=== PATIENT | female | born 1990 | race Caucasian/White ===

== ENCOUNTER 2020-02-23 08:59 | Outpatient (CLI) | payer OTHER, SELFPAY ==
--- NOTE | ~2020-02-23 | XR_ITS ---
EXAMINATION: XR knee RT 3V DATE: 02/23/2020 09:14 INDICATION: Right knee pain. TECHNIQUE: 3 views of right knee were obtained. COMPARISON: None. FINDINGS: Bone alignment is normal. No fracture. There is mild osteoarthritis of medial and lateral c ompartments characterized by tiny marginal osteophytes. No knee joint effusion. IMPRESSION: 1. Mild right knee osteoarthritis. Reviewed, dictated and finalized at location A.
== END 2020-02-23 09:00 | disposition home or self-care (01) ==
LOC: ANHIMG 09:01
PROVIDERS: PCP Internal Medicine; Visit Provider Clinical Nurse Specialist
DX: M17.11 Unilateral primary osteoarthritis, right knee (principal)
CPT/HCPCS: 73562

== ENCOUNTER 2020-03-07 14:50 | Outpatient (CLI) | payer OTHER, SELFPAY ==
--- NOTE | ~2020-03-07 | MR_ITS ---
EXAMINATION: MR knee RT wo con DATE: 03/07/2020 15:47 INDICATION: Anteromedial right knee pain. TECHNIQUE: Magnetic resonance imaging (MRI) of the right knee was performed without intravenous contr ast. Sequences included coronal PD-weighted FSE, coronal PD-weighted FS FSE, sagittal T2-weighted FS E, sagittal PD-weighted FS FSE and axial PD weighted fat saturated FSE. COMPARISON: None. FINDINGS: Medial compartment: Medial meniscus is normal. Articular cartilage is normal. Lateral compartment: Lateral meniscus is normal. Articular cartilage is normal. Patellofemoral compartment: Articular cartilage is normal. Ligaments and tendons: Anterior and posterior cruciate ligaments are normal. The medial collateral ligament and fibular aleksandr ateral ligament complex are normal. The extensor mechanism is normal. The visualized medial and later al hamstring tendons as well as the iliotibial band are normal. Fluid: Physiologic amount of fluid in the joint space. No loose osteochondral bodies identified. Osseous/other: Normal marrow signal. No fracture or pathologic marrow replacing process. There is mild increased flu id signal in the superficial suprapatellar fat pad which could be seen with either contusion or fat p ad impingement syndrome. IMPRESSION: 1. Mild edema in the superficial suprapatellar fat pad which can be seen with either contusion or fat pad impingement syndrome. 2. No osseous abnormality or internal derangement with normal marrow signal, menisci, cartilage and s tabilizing ligaments of the knee. Reviewed, dictated and finalized at location A. IMPRESSION: 1. Mild edema in the superficial suprapatellar fat pad which can be seen with e ither contusion or fat pad impingement syndrome. 2. No osseous abnormality or internal derangement with normal marrow signal, me nisci, cartilage and stabilizing ligaments of the knee.
== END 2020-03-07 14:51 | disposition home or self-care (01) ==
PROVIDERS: PCP Internal Medicine; Visit Provider Clinical Nurse Specialist
DX: M25.561 Pain in right knee (principal); R60.9 Edema, unspecified
CPT/HCPCS: 73721

== ENCOUNTER → 2021-03-21 06:56 | Outpatient (CLI) | payer OTHER, SELFPAY ==
[2021-03-21 17:38] LABS: SARS-CoV-2 RNA PCR Negative
== END ==
PROVIDERS: PCP Internal Medicine; Visit Provider Clinical Nurse Specialist
DX: R05 Cough (principal); Z20.822 Contact with and (suspected) exposure to COVID-19
CPT/HCPCS: C9803; U0003; U0005

== ENCOUNTER 2021-06-01 15:33 | Outpatient (RCR) | payer OTHER, SELFPAY ==
[2021-06-03] MEDS: RHO(D) IMMUNE GLOBULIN 300 MCG/2 ML SYRINGE IM (08:46)
== END 2021-06-12 07:32 | disposition home or self-care (01) ==
LOC: ANHLAB 15:33
PROVIDERS: PCP Internal Medicine; Visit Provider Obstetrics & Gynecology
DX: Z29.13 Encounter for prophylactic Rho(D) immune globulin (principal); O36.0190 Maternal care for anti-D [Rh] antibodies, unspecified trimester, not applicable or unspecified; Z3A.00 Weeks of gestation of pregnancy not specified
CPT/HCPCS: 36415; 85461; 90384; 96372; J2790

== ENCOUNTER 2021-07-13 17:14 | Outpatient (CLI) | payer OTHER, SELFPAY ==
[2021-07-13 17:32] VITALS: BP 126/71; PULSE 82
[2021-07-13 17:58] VITALS: BP 126/71; PULSE 91
--- NOTE | 2021-07-13 18:00 | PC.NURSE ---
called,informed pt came in stating she was leaking fluid. ROM plus is negative and NST is reactive. orders received to discharge pt home
== END 2021-07-13 18:04 | disposition home or self-care (01) ==
LOC: ANHOBOP 17:21 → ANHOBPP 17:22
PROVIDERS: PCP Internal Medicine; Referring Provider Obstetrics & Gynecology; Visit Provider Obstetrics & Gynecology
DX: O42.90 Premature rupture of membranes, unspecified as to length of time between rupture and onset of labor, unspecified weeks of gestation (principal); Z3A.00 Weeks of gestation of pregnancy not specified
CPT/HCPCS: 59025; 84112; 99199

== ENCOUNTER 2021-08-19 11:27 | Outpatient (CLI) | payer OTHER, SELFPAY ==
[2021-08-19 11:53] LABS: Hematocrit 34.7 % (37.0-47.0); Hemoglobin 11.2 g/dL (12.0-15.0); Mean Corpuscular HGB Conc 32.3 g/dl (32-36); Mean Corpuscular Hemoglobin 26.2 pg (26-34); Mean Corpuscular Volume 81.3 fl (80-100); Mean Platelet Volume 9.2 fl (7.4-10.4); Platelet Count Result 201 k/mm3 (150-375); Red Blood Count 4.27 M/mm3 (4.2-5.4); Red Cell Distribution Width 14.6 % (11.5-14.5); White Blood Count 7.5 K/mm3 (4.5-10.0)
[2021-08-21 10:25] LABS: Rapid Plasma Reagin Non-Reactive (NonReactive)
== END 2021-08-19 11:28 | disposition home or self-care (01) ==
LOC: ANHLAB 11:30
PROVIDERS: PCP Internal Medicine; Visit Provider Obstetrics & Gynecology
DX: Z34.93 Encounter for supervision of normal pregnancy, unspecified, third trimester (principal); Z3A.00 Weeks of gestation of pregnancy not specified
CPT/HCPCS: 36415; 85027; 86592; 86850; 86900; 86901

== ENCOUNTER 2021-08-21 04:53 | Inpatient (IN) | payer OTHER, SELFPAY ==
--- NOTE | 2021-08-16 12:28 | PM.IMHP ---
H&P: HPI History of Present Illness Date/Time: 08/16/21 12:28 22-year-old 3 para 1 the sleep EDC is 08/24/2021 confirmed by 8 week ultrasound presents at 39 weeks gestation for repeat section secondary to previous section and breech presentation has been uncomplicated Chief Complaint: term / previous section/ breech/desires permanent sterilization Review of Systems Review of Systems: All systems reviewed & are unremarkable except as noted in HPI and below PMFSH Past Medical History Medical History ADHD Anemia Anxiety Bipolar disorder Chlamydia Depression Endometriosis determined by laparoscopy Hydronephrosis Panic disorder 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 Surgical History Surgical History H/O dilation and curettage H/O: hysterectomy Family History Family History Father Family history of elevated blood lipids Patient's father is in good health Mother Hypertension Sibling Patient's brother is in good health Social History Social History Smoking status: Never smoker Alcohol intake: current Substance use: never Spiritual care concerns: No Meds Home Medications and Allergies Home Medications Medication Instructions Recorded Confirmed Type sertraline 50 mg tablet 50 mg PO DAILY #90 tablet 05/01/21 08/11/21 Rx PNV cmb#95-ferrous fumarate-FA 1 tablet PO DAILY 08/11/21 08/11/21 History [] Allergies Allergy/AdvReac Type Severity Reaction Status Date / Time azithromycin Allergy Unknown Verified 12/20/10 10:02 erythromycin base Allergy Unknown Verified 11/13/18 14:56 Exam Const: General: no acute distress Eyes: General: appearance normal, both eyes and all related structures Neck: Neck: supple and no JVD Thyroid: thyroid normal Resp: Effort & Inspection: normal respiratory effort Auscultation: clear to auscultation bilaterally Cardio: Rate: regular rate Rhythm: regular rhythm GI: Inspection: non-distended GI Palp: Yes Soft to palpation, No Tenderness to palpation present (GI) and No Guarding due to palpation present (GI) Auscultation: normal bowel sounds : External Female Exam: normal external appearance Speculum Exam - Vagina: normal appearance of the vagina Speculum Exam - Cervix: normal appearance of the cervix and Cervical os closed Bimanual exam- vagina & uterus: non-tender Skin: General skin exam: no rashes or lesions noted Extrem: General: normal to inspection and no edema Psych: Mental Status: mental status grossly normal Affect: normal affect Assessment and Plan Additional Plan impression: Term breech with previous section Plan: Repeat low-transverse section. She has also asked for bilateral tubal ligation and understands permanence failure rate and alternatives. This will be reviewed again upon seeing her preoperatively
[2021-08-21] VITALS (58 sets, daily range): BP systolic 62–149; BP diastolic 41–122; PULSE 54–124; RESP 12–18; TEMP 36.4–37; O2SAT 96–100; BMI 44.7
--- NOTE | 2021-08-21 05:33 | LDADM ---
This patient, Eveline Ramirez, was admitted to Labor/Delivery/Recovery 120 on 08/21/21 at 04:53. Plans for labor, pain management and were discussed with patient. Patient/family oriented to hospital policies and general routines including ID bracelet, bed and alarms, visiting hours, pain management, procedures, bathroom and other care routines, personal items, smoking policy, room service/diet and guest tray routines, infant security routines, and visiting hours. Patient/Family are encouraged to report perceived risks to care and to ask questions if they do not understand what they are told or what they should do. See OBIX for further documentation.
[2021-08-21] MEDS: LACTATED RINGERS 1,000 ML 125 ML IV CONT (05:51)
--- NOTE | 2021-08-21 06:09 | P.PNAN_ITS ---
Anes - Initial Pre Proc Eval Procedure: Operation Date: 08/21/21 07:30 Proposed Procedures p Repeat Section with Tubal Ligation - Wing Maher MD Date/Time: 08/21/21 06:09 Surgeon: Wing Maher MD Pre Op Diagnosis: Repeat Section Patient Data Age: 31 Gender: F Height: 1.57 m Weight: 111 kg Last Vital Signs Pulse 79 08/21/21 06:01 BP 124/71 08/21/21 06:01 Allergies Allergy/AdvReac Type Severity Reaction Status Date / Time azithromycin Allergy Unknown Verified 12/20/10 10:02 erythromycin base Allergy Unknown Verified 11/13/18 14:56 Home Medications Medication Instructions Recorded Confirmed Type sertraline 50 mg tablet 50 mg PO DAILY #90 tablet 05/01/21 08/11/21 Rx PNV cmb#95-ferrous fumarate-FA 1 tablet PO DAILY 08/11/21 08/11/21 History [] Laboratory Tests 08/21/21 05:27 HIV 1&2 Ab/P24 Ag 4thGn Pending Patient hx anesthesia problems: none Family hx anesthesia problems: none Results Review: All pre-operative results and documents have been reviewed as part of the pre-operative evaluation. 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 Surgical History Surgical History H/O dilation and curettage H/O: hysterectomy Family History Family History Father Family history of elevated blood lipids Patient's father is in good health Mother Hypertension Sibling Patient's brother is in good health Social History Social History Smoking status: Former smoker Second hand tobacco smoke exposure: Yes Alcohol intake: current Substance use: never Spiritual care concerns: No Anes - Eval Final PreProcedure Day of Procedure 08/21/21 06:09 Patient weight: morbidly obese Heart: regular rate and rhythm Lungs: clear to auscultation and normal air movement Airway: Mallampati scale class 1 Neurological: alert and oriented Last oral intake: >/= 8 hours ASA classification: III Emergent: no Anesthetic plan: proceed Anesthesia type and monitoring: regional spinal and standard monitoring Results Review: All pre-operative results and documents have been reviewed as part of the pre-operative evaluation. Informed Consent: The patient's anesthetic plan and its attendant risks and b enefits were discussed with the patient/family/POA. Questions were solicited and answers provided to the satisfaction of the patient/family/POA.
--- NOTE | 2021-08-21 06:46 | WPDHPUPDATE1 ---
History and Physical Update Update Date/Time: 08/21/21 06:46 History and Physical has been reviewed, including an updated exam of the patient. There are NO changes in the patient's condition. Risks, benefits, and alternatives have been discussed and questions answered. Patient agrees to proceed with procedure.
[2021-08-21 06:49] LABS: HIV 1/2 Ab P24 Ag Result Negative (Negative)
[2021-08-21] MEDS: ceFAZolin 2 GM/D5W 50 ML 2 GM/50 ML BAG IVPB (06:49)
--- NOTE | 2021-08-21 07:51 | P.OP_ITS ---
Procedure Note - Detailed Date of Procedure 08/21/21 Pre-op Diagnosis Repeat Section Post-op Diagnosis same Procedure Performed Repeat low-transverse section and bilateral tubal ligation Surgeon Wing Maher MD Anesthesia spinal Indications this is a 31-year-old 2 para 2 at term with breech and previous section who desires permanent sterilization Findings breech presentation 8lb 1oz male Apgars 7 and 9 at 1 and 5minutes respectively normal-appearing ovaries and tubes Description of Procedure repeat low-transverse section and bilateral tubal ligation via mo dified Jacquelyn method The patient is prepped draped normal sterile fashion placed in the supine position. Under excellent spinal anesthetic the previous Pfannenstiel incision was entered by sharp dissection this carried superiorly and inferiorly. The fascia was incised in upward outward fashion bilaterally. Underlying muscles sharply dissected parietal peritoneum elevated Ana clamps and by sharp dissection there was a moderate amount of scar tissue from the omentum to the anterior abdominal wall but these were easily brought down with sharp dissection. The bladder blade was placed a bladder flap formed bladder blade returned. A low transverse incision made the breech delivered to the maternal left. The arms were swept medially and the head delivered in the flexed position. It was given Apgars 7 [id number] 9 [id number]. Cord blood was drawn and placenta delivered intact manually. Uterus delivered abdomen wrapped in a moist towel. After assuring no membranes or debris remained in the uterus, the uterus was closed with continuous running 0 Vicryl from lateral edge to lateral edge followed by a 2nd imbricating running locking 0 Vicryl from lateral edge to lateral edge. Hemostasis was assured. Ovaries and tubes appeared within normal limits patient was asked again about the tubal ligation she consented gas. The right fallopian tube was grasped was midportion. A good knuckle of tube formed free tied with 0 chromic. The peritoneum between pierced and the distal and proximal legs for free tied with 0 chromic. The portion between removed and passed off as portion of right fallopian tube. Hemostasis was assured. Left fallopian tube was grasped with midportion a good knuckle of tube formed and free tied with 0 chromic. The peritoneum between pierced and the distal and proximal legs were free tied with 0 chromic. The portion between cut passed off as portion of left fallopian tube. Hemostasis was assured. The hysterotomy incision inspected 1 last time noted be hemostatic and the uterus returned the abdomen. The laps removed and accounted for. The fascia closed with continuous running 0 Vicryl from lateral edge to midline bilaterally. The subcutaneous layer closed with 4 Monocryl and glue. QBL was estimated [id number]. All sponge, needle, instrument counts were correct. There were no immediate complications noted Estimated Blood Loss 520 Drains No Packing No Pathology none sent Complications No immediate complications Condition stable Disposition floor
[2021-08-21] MEDS: OXYTOCIN 30 UNITS/NS 500 ML 30 UNITS/500 ML BAG 125 UNITS IV CONT (08:38)
--- NOTE | 2021-08-21 10:08 | OBPPTRN ---
Patient transferred to post room #288 via stretcher. Support person present. Oriented to unit, room, information board, rooming in, admission packet and security measures. Patient verbalizes understanding.
[2021-08-21] MEDS: KETOROLAC 30 MG/ML VIAL (*BKC) IV PUSH (10:35)
[2021-08-21] MEDS: diphenhydrAMINE HCl INJ 50 MG/ML VIAL 25 MG IV PUSH (13:10)
--- NOTE | 2021-08-21 14:11 | PC.NURSE ---
1300 - Consulted with patient, reviewed infant feeding cues, frequencies, duration of feedings, feeding elimination flow sheet, and signs of adequate intake. Demonstrated stimulation techniques to wake infant for feeding. Assisted with infant to breast. Reviewed positioning/alignment, holding breast and asymmetrical latch on. was able to latch correctly. Infant nursed eagerly, with steady draws and frequent swallowing noted. Reviewed signs of a correct latch, effective nursing and suck swallow ratio. Infant was able to maintain latch without discomfort to mother. Nipple care reviewed. Instructed mother to call out for RN assistance if she is unable to latch for feeding or she has discomfort with nursing. Instructed feeding should be initiated three hours from start of last feeding or if feeding cues are noted before. Mother voiced understanding of information shared. 1340 - RN assisted mom with cross cradle hold to the right breast for effective . Primary RN notified of progress.
[2021-08-21] MEDS: DEXTROSE 5%/0.45% SOD CHL 1,000 ML 125 ML IV CONT (14:54)
[2021-08-22] VITALS: BP 116/69; PULSE 87; RESP 16; TEMP 36.5; O2SAT 98
[2021-08-22 04:25] VITALS: BP 121/71; PULSE 90; RESP 16; TEMP 36.4; O2SAT 99
[2021-08-22] MEDS: ACETAMINOPHEN 325 MG TABLET 650 MG PO ×3 (04:45→19:26)
[2021-08-22] MEDS: IBUPROFEN 600 MG TABLET PO ×3 (04:45→19:26)
[2021-08-22 05:16] LABS: Basophils Percent Auto 0.4 % (0.2-1.2); Eosinophils Absolute Auto 0.4 K/mm3 (0-0.3); Eosinophils Percent Auto 4.5 % (0-4.4); Hematocrit 32.7 % (37.0-47.0); Hemoglobin 10.3 g/dL (12.0-15.0); Immature Granulocyte Absolute 0.03 K/mm3 (0.00-0.031); Immature Granulocyte Percent A 0.4 % (0-0.5); Lymphocytes Percent Auto 14.7 % (18.3-44.2); Mean Corpuscular HGB Conc 31.5 g/dl (32-36); Mean Corpuscular Hemoglobin 25.8 pg (26-34); Mean Corpuscular Volume 81.8 fl (80-100); Mean Platelet Volume 9.5 fl (7.4-10.4); Monocytes Absolute Auto 0.5 K/mm3 (0.1-0.6); Monocytes Percent Auto 5.7 % (2.6-8.5); Neutrophils Absolute Auto 6.1 K/mm3 (1.3-6.7); Neutrophils Percent Auto 74.3 % (45.5-73.1); Platelet Count Result 209 k/mm3 (150-375); Red Cell Distribution Width 14.7 % (11.5-14.5); White Blood Count 8.2 K/mm3 (4.5-10.0)
--- NOTE | 2021-08-22 07:27 | WPDANLDNPN2 ---
Anes-Prog Note L&D-Neuraxial Date/Time: 08/22/21 07:27 Neuraxial medications: intrathecal PF morphine Opiod-related complaints: none Patient feedback: Patient satisfied with post-operative pain management.
--- NOTE | 2021-08-22 07:28 | WPDANLDPN2 ---
Anes-Prog Note L&D Date/Time: 08/22/21 07:28 Comfortable throughout: section Neuraxial method: spinal Epidural/Spinal procedure site: clean & non-tender Neuro status: Neuro function grossly intact. Cardiovascular status: normal Respiratory status: normal Airway patency: baseline Mental status: baseline Post-Op hydration status: normal Vital Signs: Last Vital Signs Temp 36.4 C 08/22/21 04:25 Pulse 90 08/22/21 04:25 Resp 16 08/22/21 04:25 BP 121/71 08/22/21 04:25 Pulse Ox 99 08/22/21 04:25 Pain score (VAS): 0 I/O: Intake & Output 08/21/21 08/21/21 08/22/21 15:59 23:59 07:59 Intake Total 1140 Output Total 651 177 8418 Balance -696 890 -2200 Post-procedural complaints: none Patient feedback: Patient satisfied with anesthetic care.
--- NOTE | 2021-08-22 07:31 | P.PNOB_ITS ---
OB - PN: Subj Subjective Date/time seen: 08/22/21 07:31 Patient comments: no complaints and pain well controlled baby status: doing well and nursing well OB - PN: Obj Data Labs CBC & Chem 7: 08/22/21 04:50 Labs: Laboratory Results - last 24 hr 08/22/21 04:50 WBC 8.2 RBC 4.00 L Hgb 10.3 L Hct 32.7 L MCV 81.8 MCH 25.8 L MCHC 31.5 L RDW 14.7 H Plt Count 209 MPV 9.5 Immature Gran % (Auto) 0.4 Neut % (Auto) 74.3 H Lymph % (Auto) 14.7 L [place] % (Auto) 5.7 Eos % (Auto) 4.5 H Baso % (Auto) 0.4 Lymph # (Auto) 1.20 [place] # (Auto) 0.5 Eos # (Auto) 0.4 H Baso # (Auto) 0.0 Abs Immat Gran (auto) 0.03 Absolute Neuts (auto) 6.1 Absolute Nucleated RBC 0.0 Nucleated RBC % 0.0 OB - PN A/P Plan day: 1 Plan: routine care Time Spent With Patient Time: Total time spent is greater than 50% in coordination of care (as doc umented) at patient's floor/unit and/or counseling patient: Time with patient: less than 15 minutes Review of Systems Review of Systems: All systems reviewed & are unremarkable except as noted in HPI and below Exam Const: General: no acute distress Eyes: General: appearance normal, both eyes and all related structures Neck: Neck: supple and no JVD Thyroid: thyroid normal Resp: Effort & Inspection: normal respiratory effort Auscultation: clear to auscultation bilaterally Cardio: Rate: regular rate Rhythm: regular rhythm GI: Inspection: incision Auscultation: normal bowel sounds : General: Yes bladder normal to palpation External Female Exam: normal external appearance Speculum Exam - Vagina: normal vaginal discharge and No vaginal bleeding Speculum Exam - Cervix: nontender Bimanual exam- vagina & uterus: bladder normal to palpation and No Cervical tenderness present OB/external & speculum: No vaginal bleeding Skin: General skin exam: no rashes or lesions noted Extrem: General: normal to inspection and no edema Psych: Mental Status: mental status grossly normal Affect: normal affect
[2021-08-22 08:15] VITALS: BP 100/57; PULSE 77; RESP 16; TEMP 36.5; O2SAT 99
--- NOTE | 2021-08-22 09:00 | PC.NURSE ---
Consult with pt., mother reports is eagerly feeding with slight tenderness using the nipple shield on both breasts. Mother reports she attempted with first child and began supplementing due to ineffective latch. Reviewed infant feeding cues, frequencies, duration of feedings, feeding elimination flow sheet, and signs of adequate intake. Demonstrated stimulation techniques to wake infant for feeding. Reviewed signs of a correct latch, effective nursing and suck swallow ratio. Nipple care reviewed of lanolin after feedings and warm compresses as needed. Requested mother to call out for RN/LC assistance next feeding to assess latch due reported nipple tenderness. Instructed feeding should be initiated three hours from start of last feeding or if feeding cues are noted before. Mother voiced understanding of information shared.
--- NOTE | 2021-08-22 10:30 | PC.NURSE ---
Mother called out for assist with feeding. Infant is able to freely thrust tongue past gum ridge and flange both lips. Skin is intact on both nipples, no redness and bruising noted. Reviewed feeding cues, frequencies, duration of feedings, feeding elimination flow sheet, and signs of adequate intake. Demonstrated stimulation techniques to wake for feeding. Assisted with infant to breast. Reviewed positioning/alignment in cross cradle, holding breast in ?U? hold and guided asymmetrical latch on. Reviewed rational for each. Suggested to attempt to breast first without shield. Demonstrated how to roll out flat nipple before attempting. After several attempts infant able to latch correctly without nipple shield. Infant nursed eagerly with steady draws and occasional swallowing noted, long pausing noted. Reviewed signs of a correct latch, effective nursing and suck swallow ratio. Suggested mother stimulate while feeding to increase stimulation for milk supply, for increased intake and to assist with maintaining deep latch. Infant would slip to shallow latch causing tenderness. Demonstrated how to adjust latch more deeply while feeding as needed. Mother reports she can feel the difference in latch with no tenderness. Nipple care reviewed of lanolin after feedings, warm compresses as needed. Instructed mother to call out for RN assistance if she is unable to latch for feeding or she has discomfort with nursing. Instructed feeding should be initiated three hours from start of last feeding or if feeding cues are noted before. Mother voiced understanding of information shared.
[2021-08-22] MEDS: DOCUSATE SODIUM 100 MG CAPSULE PO ×2 (12:23→19:26)
[2021-08-22] MEDS: MULTIVIT/MIN/PREN/FOL AC/IRON TABLET 1 TAB PO (12:23)
[2021-08-22 19:21] VITALS: BP 122/67; PULSE 81; RESP 20; TEMP 36.5
[2021-08-23] MEDS: ACETAMINOPHEN 325 MG TABLET 650 MG PO (03:20)
[2021-08-23] MEDS: IBUPROFEN 600 MG TABLET PO ×2 (03:20→08:25)
--- NOTE | 2021-08-23 06:26 | PM.DS ---
DS: Admitting Diagnosis Discharge Date 0 Admitting Diagnosis term /previous section / breech presentation DS: Summary Hospital Course Hospital Course: patient was admitted for repeat section and tubal ligation she underwent an unremarkable procedure please see the operative report for full details. Her hospital course unremarkable. She remained afebrile. She was up, voiding without difficulty, ambulating, generally without complaints. Time Spent with Patient Time attestation: Total time spent providing and/or coordinating discharge services: Exam Const: General: no acute distress Eyes: General: appearance normal, both eyes and all related structures Neck: Neck: supple and no JVD Thyroid: thyroid normal Resp: Effort & Inspection: normal respiratory effort Auscultation: clear to auscultation bilaterally Cardio: Rate: regular rate Rhythm: regular rhythm GI: Inspection: non-distended GI Palp: Yes Soft to palpation, No Tenderness to palpation present (GI) and No Guarding due to palpation present (GI) Auscultation: normal bowel sounds : General: Yes bladder normal to palpation External Female Exam: normal external appearance Speculum Exam - Vagina: normal vaginal discharge and No vaginal bleeding Speculum Exam - Cervix: nontender Bimanual exam- vagina & uterus: bladder normal to palpation and No Cervical tenderness present OB/external & speculum: No vaginal bleeding Skin: General skin exam: no rashes or lesions noted Extrem: General: normal to inspection and no edema Psych: Mental Status: mental status grossly normal Affect: normal affect DS: Data Data Completed and Pending Completed studies during hospitalization: Pending at discharge 08/21/21 08:22 Surgical [PTH] Routine Labs on day of discharge: Labs from last 24 hours 08/22/21 04:50 WBC 8.2 RBC 4.00 L Hgb 10.3 L Hct 32.7 L MCV 81.8 MCH 25.8 L MCHC 31.5 L RDW 14.7 H Plt Count 209 MPV 9.5 Immature Gran % (Auto) 0.4 Neut % (Auto) 74.3 H Lymph % (Auto) 14.7 L [place] % (Auto) 5.7 Eos % (Auto) 4.5 H Baso % (Auto) 0.4 Lymph # (Auto) 1.20 [place] # (Auto) 0.5 Eos # (Auto) 0.4 H Baso # (Auto) 0.0 Abs Immat Gran (auto) 0.03 Absolute Neuts (auto) 6.1 Absolute Nucleated RBC 0.0 Nucleated RBC % 0.0 Discharge Plan Discharge Attending physician on discharge: Wing Maher Discharging Clinician: Wing Maher Patient Disposition: Home, Self-Care Activity: may shower, no driving and pelvic rest Diet: heart healthy Wound Care Instructions: follow printed instructions Patient Instructions: Antibiotic Form Stand Alone Forms: General Discharge Information Follow-up/Referrals: Wing Maher MD [Physician] - Discharge Medications: New hydrocodone-acetaminophen 5-325 mg tablet 1 tablet PO Q4H PRN (Reason: pain) Qty: 30 RF: 0 Continued PNV cmb#95-ferrous fumarate-FA [] 28 mg iron- 800 mcg Tablet 1 tablet PO DAILY RF: 0 sertraline 50 mg tablet 50 mg PO DAILY Qty: 90 RF: 1 Date of admission: 08/21/21 04:53 Primary Care Provider: Michael Yuan Admitting Provider: Wing Maher Attending physician on admission: Wing Maher Condition: Stable
--- NOTE | 2021-08-23 06:28 | PM.OBPNVD ---
OB - PN: Subj Subjective Date/time seen: 08/23/21 06:28 Patient comments: no complaints and pain well controlled baby status: doing well and nursing well OB - PN: Obj Data Labs CBC & Chem 7: 08/22/21 04:50 Labs: Laboratory Results - last 24 hr 08/22/21 04:50 WBC 8.2 RBC 4.00 L Hgb 10.3 L Hct 32.7 L MCV 81.8 MCH 25.8 L MCHC 31.5 L RDW 14.7 H Plt Count 209 MPV 9.5 Immature Gran % (Auto) 0.4 Neut % (Auto) 74.3 H Lymph % (Auto) 14.7 L [place] % (Auto) 5.7 Eos % (Auto) 4.5 H Baso % (Auto) 0.4 Lymph # (Auto) 1.20 [place] # (Auto) 0.5 Eos # (Auto) 0.4 H Baso # (Auto) 0.0 Abs Immat Gran (auto) 0.03 Absolute Neuts (auto) 6.1 Absolute Nucleated RBC 0.0 Nucleated RBC % 0.0 OB - PN A/P Plan day: 2 Plan: routine care, discharge home and follow up 6 weeks (4 weeks) Time Spent With Patient Time: Total time spent is greater than 50% in coordination of care (as documented) at patient's floor/unit and/or counseling patient: Time with patient: less than 15 minutes Review of Systems Review of Systems: All systems reviewed & are unremarkable except as noted in HPI and below Exam Const: General: no acute distress Eyes: General: appearance normal, both eyes and all related structures Neck: Neck: supple and no JVD Thyroid: thyroid normal Resp: Effort & Inspection: normal respiratory effort Auscultation: clear to auscultation bilaterally Cardio: Rate: regular rate Rhythm: regular rhythm GI: Inspection: normal to inspection Percussion: Yes normal to percussion Auscultation: normal bowel sounds : General: Yes bladder normal to palpation External Female Exam: normal external appearance Speculum Exam - Vagina: normal vaginal discharge and No vaginal bleeding Speculum Exam - Cervix: nontender Bimanual exam- vagina & uterus: bladder normal to palpation and No Cervical tenderness present OB/external & speculum: No vaginal bleeding Skin: General skin exam: no rashes or lesions noted Extrem: General: normal to inspection and no edema Psych: Mental Status: mental status grossly normal Affect: normal affect
[2021-08-23 08:00] VITALS: BP 108/50; PULSE 89; RESP 18; TEMP 36.4; O2SAT 99
[2021-08-23] MEDS: MULTIVIT/MIN/PREN/FOL AC/IRON TABLET 1 TAB PO (08:24)
--- NOTE | 2021-08-23 09:30 | PC.NURSE ---
Consult with pt., observed mother is able to independently latch with appropriate positioning/alignment. Infant eagerly latches on first attempt with long rhythmical draws and frequent swallowing noted. She denies any nipple discomfort, is feeding as required and waking infant to feed if needed. Infant has had at least 8 effective feedings in the past 24 hours, and is currently meeting outcomes for weight, output, jaundice and feeding frequencies. Mother states she feels confident to continue effective at home. Reviewed transition to breast milk, signs of adequate intake, and engorgement/relief. Instructed to call ICP if intake/output less than required. Reviewed regular medications mother is taking. Information provided per [facility]. Reviewed community resources on the [facility] website and in the Mom/Baby guide. Information on outpatient services provided. Mother has no further questions at this time. Instructed feeding should be initiated three hours from start of last feeding or if feeding cues are noted before until seen by ICP. Mother voiced understanding of information shared.
[2021-08-23] MEDS: HYDROCORTISONE 1% 30 GM CREAM 1 APPLIC TOPICAL (11:47)
[2021-08-23] MEDS: diphenhydrAMINE HCl CAP 25 MG CAPSULE PO (11:47)
--- NOTE | 2021-08-23 11:56 | PC.NURSE ---
Self care and infant care discharge instructions given including follow up visit date and time. Mother verbalized understanding. No questions or concerns voiced. Very pleasant and cooperative. FOB at side.
[2021-08-23] MEDS: TETANUS,DIPHTHERIA,AC PERTUSSIS ADULT (0.5 ML) BOOSTRIX IM (13:05)
[2021-08-24 08:29] VITALS: BP 111/63; PULSE 65; RESP 20; TEMP 36.8; O2SAT 100
== END 2021-08-23 13:35 | disposition home or self-care (01) | DRG 785 ==
LOC: ANHLDR 04:57 → ANHOB2 10:11
PROVIDERS: Admitting Provider Obstetrics & Gynecology; PCP Internal Medicine; Visit Provider Obstetrics & Gynecology
PROC: 10D00Z1 Extraction of Products of Conception, Low, Open Approach (ICD-10-PCS; CPT 59514; principal; 2021-08-21 07:30)
DX: O34.219 Maternal care for unspecified type scar from previous cesarean delivery (principal); Z30.2 Encounter for sterilization; O32.1XX0 Maternal care for breech presentation, not applicable or unspecified; O99.214 Obesity complicating childbirth; E66.01 Morbid (severe) obesity due to excess calories; Z3A.39 39 weeks gestation of pregnancy; Z37.0 Single live birth; Z87.891 Personal history of nicotine dependence
CPT/HCPCS: 36415; 85025; 85027; 86592; 86703; 86850; 86900; 86901; 88302; 90715; A9270; G0432; J0690; J1200; J1885; J2274; J2405; J2590; J7120

== ENCOUNTER 2021-11-10 09:07 | Emergency (ER) | payer OTHER, SELFPAY ==
[2021-11-10 09:11] VITALS: BP 112/81; PULSE 78; RESP 16; TEMP 36.4; O2SAT 98
--- NOTE | 2021-11-10 09:20 | ED.URI ---
HPI - URI/Sore Throat General Chief Complaint: Upper Respiratory Infection Stated Complaint: sore throat Time Seen by Provider: 11/10/21 09:20 Source: patient and RN notes reviewed Mode of arrival: ambulatory Limitations: no limitations History of Present Illness HPI Narrative: 31-year-old female presented for complaint of sore throat, onset this morning. She denies sick contacts, states she has 3-year-old and a 2-month-old at home. Denies any associated symptoms of sinus pressure, congestion, ear pain, headache, nausea, cough, fever or chills. States she was stung by a bee on the left leg 2 days ago. Has not taken anything for symptoms. MD elicited complaint: sore throat Related Data Allergies Allergy/AdvReac Type Severity Reaction Status Date / Time adhesive Allergy Mild Rash Verified 11/10/21 09:23 azithromycin Allergy Unknown Unknown Verified 11/10/21 09:23 erythromycin base Allergy Unknown Unknown Verified 11/10/21 09:23 Review of Systems Review of Systems: CONSTITUTIONAL: Denies malaise, chills, sweats, fever EYES: Denies visual changes, redness, or discharge ENT: Denies rhinorrhea, congestion, sinus pain, otalgia, reports sore throat CARDIOVASCULAR: Denies chest pain, palpitations, edema RESPIRATORY: Reports cough, post nasal drainage. 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 HEAD: Normocephalic EYES: PERRLA, conjunctivae clear ENT: Mucous membranes moist. TM pearly allen with dull light reflex bilaterally; no tragal tenderness. Oropharynx erythematous without lesions or exudate, tonsils absent, no drooling, no hoarseness, no trismus, uvula enlarged and midline. No tripod positioning, muffled voice, soft palate or pharyngeal wall bulging NECK: Supple. No lymphadenopathy CHEST: Clear to auscultation, breath sounds equal. No wheezing, rhonchi, rales, or stridor. No respiratory distress, speaks in full sentences. HEART: Regular rate and rhythm. No murmur heard. SKIN: Warm, dry, left medial calf with approx 2.5 inches circular area of erythema/induration c/w cellulitis, no streaking or circumferential swelling/redness. NEURO: Alert and oriented x3. PSYCH: Normal mood and affect Course Course Emergency Course: Patient is aware of diagnosis, understands and agrees to treatment plan. Anticipatory guidance given. Patient agrees to follow-up as directed and is aware of reasons to seek care at the emergency department. Portions of this record may have been created with voice recognition software Level of Care: Express Care Visit Vital Signs Vital signs: Vital Signs Temperature 97.6 F 11/10/21 09:11 Pulse Rate 78 11/10/21 09:11 Respiratory Rate 16 11/10/21 09:11 Blood Pressure 112/81 11/10/21 09:11 Pulse Oximetry 98 11/10/21 09:11 Temperature 97.6 F 11/10/21 09:11 Pulse Rate 78 11/10/21 09:11 Respir
== END 2021-11-10 09:40 | disposition home or self-care (01) ==
PROVIDERS: Emergency Provider Nurse Practitioner Family; PCP Internal Medicine
DX: J02.9 Acute pharyngitis, unspecified (principal); S80.862A Insect bite (nonvenomous), left lower leg, initial encounter; W57.XXXA Bitten or stung by nonvenomous insect and other nonvenomous arthropods, initial encounter; Z87.891 Personal history of nicotine dependence; N80.9 Endometriosis, unspecified; F41.9 Anxiety disorder, unspecified; F32.A Depression, unspecified
CPT/HCPCS: 87081; 87880; 99213; G0463

== ENCOUNTER 2022-11-09 07:58 | Outpatient (CLI) | payer OTHER, SELFPAY ==
[2022-11-09 08:38] LABS: Hematocrit 41.7 % (37.0-47.0); Hemoglobin 13.2 g/dL (12.0-15.0)
== END 2022-11-09 07:59 | disposition home or self-care (01) ==
PROVIDERS: PCP Internal Medicine; Visit Provider Obstetrics & Gynecology
DX: N92.6 Irregular menstruation, unspecified (principal); Z01.818 Encounter for other preprocedural examination
CPT/HCPCS: 36415; 85014; 85018

== ENCOUNTER 2022-11-16 01:59 | Day surgery (SDC) | payer OTHER, SELFPAY ==
[2022-11-07 12:21] VITALS: BMI 42.3
--- NOTE | 2022-11-07 12:26 | PC.NURSE ---
Report to the Outpatient Waiting Room, entrance under the green pavilion located off [facility], at time 8:30 on date 11/16/22. Planned Procedure Time: 10:30. Time changes happen often and if your time is changed the preop area will call you the afternoon before. - You and your visitor will be asked to self-screen and do not enter if you have any COVID symptoms. - Only one visitor is requested with a max of two and NO children visitors are allowed at this time. - The patient visitor may be requested to leave or wait in car when not with patient due to distancing restrictions. - A mask is optional within the hospital at this time. Patients may have clear liquids (water, carbonated beverages, clear teas, apple juice) until 3 hours prior to surgery (7:30) with a maximum of 20 ounces. - No food from midnight until time of surgery Take the following medications with a SIP of water the morning of surgery: N/A DO NOT STOP ANY OF YOUR OTHER PRESCRIPTION MEDICATIONS PRIOR TO SURGERY EXCEPT THE FOLLOWING Medications to discontinue per physician: N/A Date to take last dose: N/A Please no make-up, nail slovenian, hairspray, perfume, deodorant, or body powder the day of surgery. No jewelry (including any body piercings) or valuables the day of surgery, leave them at home. Please take a shower or bath the night before, or the morning of, surgery with an antibacterial soap. Wear comfortable, loose fitting clothing. - Jewelry must be removed prior to entering the operating room. Rings and piercings that are not removed may be cut off. - The hospital will not accept responsibility for valuables. - Please leave all valuables, including medications, at home the day of surgery. If you are going home after surgery, a licensed intermodal truck driver must drive you home. - NO public transportation without another adult if you receive anesthesia. - We recommend that an adult stay with you for 24 hours following discharge. - We also recommend that you do not drive, make important decision, drink alcoholic beverages, or take any drugs that were not prescribed by your health care provider for at least 24 hours after your discharge time. Follow any additional instructions given to you from your surgeon. If you or anyone in your household have experienced Covid symptoms in the past week, please notify your surgeon or the nurse liaison at the phone number below for possible testing. Telephone instructions given to ANGY MENDEZ and asked if any additional questions and then verbalized understanding. Patient advised to call surgeon office or pre surgery nurse liaison [phone] if any additional questions.
--- NOTE | 2022-11-14 11:57 | P.HP_ITS ---
H&P: HPI History of Present Illness Date/Time: 11/14/22 11:57 Chief Complaint: Irregular excessive bleeding Narrative: This is a 32-year-old female is admitted for hysteroscopy dilatation curettage secondary to irregular bleeding she has had no success with hormonal manipulation and she can bleed irregularly ultrasound was not necessarily helpful. She has had negative cultures etc.. Risks and benefits reviewed including not exclusive of aspiration pneumonia bleeding transfusion perforation with bowel bladder ureters or other internal organs with need for open laparotomy. She received the [facility] handouts entitled hysteroscopy and dilatation curettage respectively. She had all questions answered and asked proceeded [facility] Past Medical History Medical History ADHD Anemia Anxiety Bipolar disorder Chlamydia Depression Endometriosis determined by laparoscopy Hydronephrosis Panic disorder 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 Surgical History Surgical History H/O dilation and curettage H/O: hysterectomy Family History Family History Father Family history of elevated blood lipids Patient's father is in good health Mother Hypertension Sibling Patient's brother is in good health Social History Social History Social History: Caffeine- Daily Smoking status: Former smoker Tobacco type: cigarettes Second hand tobacco smoke exposure: Yes Additional smoking assessment comments: ONLY AT AGE 21 Alcohol intake: current Alcohol use details: VERY RARE Substance use: current Substance use type: marijuana Living arrangements: with family Spiritual care concerns: No Meds Home Medications and Allergies Home Medications Medication Instructions Recorded Confirmed Type sertraline 50 mg tablet 50 mg PO DAILY #90 tabs 10/31/22 11/07/22 Rx Allergies Allergy/AdvReac Type Severity Reaction Status Date / Time azithromycin Allergy Unknown Hives Verified 11/07/22 12:21 erythromycin base Allergy Unknown Hives Verified 11/07/22 12:21 SURGICAL GLUE Allergy Other Uncoded 11/07/22 12:21 Exam Const: General: cooperative, healthy appearing, comfortable and well groomed Nutritional Appearance: overweight Orientation/consciousness: oriented to person, oriented to place and oriented to time Chest: Chest palpation & inspection: normal inspection of the chest Resp: Effort & Inspection: normal respiratory effort Cardio: Rate: regular rate Rhythm: regular rhythm Heart sounds: S1 normal heart sound present and S2 normal heart sound present GI: Inspection: normal to inspection : Speculum Exam - Vagina: normal appearance of the vagina Speculum Exam - Cervix: normal appearance of the cervix and Cervical os closed Bimanual exam- vagina & uterus: uterine size normal Bimanual Exam- Adnexa, other: normal adnexae Assessment and Plan Assessment and plan (1) Vaginal bleeding: Code(s): N93.9 - Abnormal uterine and vaginal bleeding, unspecified Status: Acute Plan Hysteroscopy/dilatation curettage
--- NOTE | 2022-11-16 07:10 | WPDHPUPDATE1 ---
History and Physical Update Update Date/Time: 11/16/22 07:10 History and Physical has been reviewed, including an updated exam of the patient. There are NO changes in the patient's condition. Risks, benefits, and alternatives have been discussed and questions answered. Patient agrees to proceed with procedure.
[2022-11-16] MEDS: ACETAMINOPHEN 500 MG TABLET 1000 MG PO (07:57)
[2022-11-16 08:00] VITALS: BP 116/67; PULSE 66; RESP 16; TEMP 36.3; O2SAT 99
--- NOTE | 2022-11-16 08:06 | WPDANESEPPF ---
Anes - Initial Pre Proc Eval Procedure: Operation Date: 11/16/22 09:30 Proposed Procedures p Hysteroscopy Dilation and Curettage - Wing Oscar MD Date/Time: 11/16/22 08:06 Surgeon: Wing Oscar MD Pre Op Diagnosis: Irregular Bleeding Patient Data Age: 32 Gender: F Height: 1.57 m Weight: 104.8 kg Allergies Allergy/AdvReac Type Severity Reaction Status Date / Time azithromycin Allergy Unknown Hives Verified 11/16/22 08:47 erythromycin base Allergy Unknown Hives Verified 11/16/22 08:47 SURGICAL GLUE Allergy Other Uncoded 11/16/22 08:47 Home Medications Medication Instructions Recorded Confirmed Type sertraline 50 mg tablet 50 mg PO DAILY #90 tabs 10/31/22 11/07/22 Rx hydrocodone 5 mg-acetaminophen 325 1 tablet PO Q4H PRN pain #30 tabs 11/16/22 Rx mg tablet Patient hx anesthesia problems: none Family hx anesthesia problems: none Results Review: All pre-operative results and documents have been reviewed as part of the pre-operative evaluation. [facility] Past Medical History Medical History ADHD Anemia Anxiety Bipolar disorder Chlamydia Depression Endometriosis determined by laparoscopy Hydronephrosis Panic disorder 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 Surgical History Surgical History H/O dilation and curettage H/O: hysterectomy Family History Family History Father Family history of elevated blood lipids Patient's father is in good health Mother Hypertension Sibling Patient's brother is in good health Social History Social History Social History: Caffeine- Daily Smoking status: Former smoker Tobacco type: cigarettes Second hand tobacco smoke exposure: Yes Additional smoking assessment comments: ONLY AT AGE 21 Alcohol intake: current Alcohol use details: VERY RARE Substance use: current Substance use type: marijuana Living arrangements: with family Spiritual care concerns: No Anes - Eval Final PreProcedure Day of Procedure 11/16/22 08:06 Patient weight: morbidly obese Heart: regular rate and rhythm Lungs: clear to auscultation Neurological: alert and oriented Last oral intake: >/= 8 hours ASA classification: III Emergent: no Anesthetic plan: proceed Anesthesia type and monitoring: general GIVS and standard monitoring Results Review: All pre-operative results and documents have been reviewed as part of the pre-operative evaluation. Informed Consent: The patient's anesthetic plan and its attendant risks and benefits were discussed with the patient/family/POA. Questions were solicited and answers provided to the satisfaction of the patient/family/POA.
[2022-11-16] MEDS: LACTATED RINGERS 1,000 ML 30 ML IV CONT (08:22)
[2022-11-16] MEDS: SCOPOLAMINE 1.5 MG PATCH TRANSDERM (08:25)
[2022-11-16] MEDS: MIDAZOLAM HCL (*CRX) 2 MG/2 ML VIAL 1 MG IV PUSH (08:25)
[2022-11-16] MEDS: LIDOCAINE HCL 1% LOCAL INJ 10 ML VIAL INFILTRATE (09:20)
[2022-11-16 09:31] VITALS: BP 109/70; PULSE 72; RESP 14; O2SAT 100
--- NOTE | 2022-11-16 09:36 | W.PM.PROC2 ---
Procedure Note - Detailed Date of Procedure 11/16/22 Pre-op Diagnosis Irregular Bleeding Post-op Diagnosis Same Procedure Performed Hysteroscopy / dilatation curettage Surgeon Wing Oscar MD Anesthesia MAC and Local Indications 32-year-old female with excessive heavy Findings uterus sounded to 9cm. Thick irregular endometrial tissue Description of Procedure patient was prepped draped sterile fashion placed in dorsal position IV sedation weighted speculum placed in posterior. Anterior lip of the cervix grasped with single-tooth tenaculum. 2.5cc of 1% xylocaine anesthesia placed at 2, 4, 8, 10:00 a.m. of the cervix uterus sounded to 9cm. Serial dilatation with fragmented dilators performed followed by passage of the 5mm visualizing hysteroscope. Normal saline was used as visualizing medium. Thick irregular endometrial tissue was seen each fallopian tube os could be seen. No definitive abnormalities were seen. The uterus was then scraped over the entire 360? until good grating sound was heard. The instruct withdrawn and the patient was awakened. She went to recovery in satisfactory condition. All sponge, needle, instrument counts were correct Estimated Blood Loss 5 Drains No Packing No Pathology Yes Complications No immediate complications Condition Stable Disposition PACU
[2022-11-16 10:00] VITALS: BP 106/58; PULSE 60
[2022-11-16 10:30] VITALS: BP 102/61; PULSE 65
== END 2022-11-16 10:39 | disposition home or self-care (01) ==
PROVIDERS: PCP Internal Medicine; Visit Provider Obstetrics & Gynecology
PROC: 0U5B8ZZ Destruction of Endometrium, Via Natural or Artificial Opening Endoscopic (ICD-10-PCS; CPT 58563; principal; 2022-11-16 09:30)
DX: N93.9 Abnormal uterine and vaginal bleeding, unspecified (principal); Z87.891 Personal history of nicotine dependence; F31.9 Bipolar disorder, unspecified
CPT/HCPCS: 58558; 88305; A9270; J2250; J2704; J3010; J7030; J7120

== ENCOUNTER 2023-03-11 10:45 | Emergency (ER) | payer OTHER, SELFPAY ==
--- NOTE | ~2023-03-11 | XR_ITS ---
EXAMINATION: XR ankle LT min 3V DATE: 03/11/2023 11:07 INDICATION: Left ankle injury and pain. TECHNIQUE: 4 views of left ankle were obtained. COMPARISON: None. FINDINGS: There is an oblique fracture of lateral malleolus with medial aspect of the fracture line a t the level of the tibial plafond. The distal fracture fragment demonstrates 2 mm posterolateral disp lacement. There is a fracture of the posterior malleolus with 1 mm offset at the articular surface. T here is widening of the medial ankle mortise. Talar dome is normal. There is ankle soft tissue swelli ng. IMPRESSION: 1. Fractures of lateral and posterior malleoli. 2. Widening of the medial ankle mortise, consistent with deltoid ligament tear. Reviewed, dictated and finalized at location A.
--- NOTE | ~2023-03-11 | XR_ITS ---
EXAMINATION: XR knee LT 3V DATE: 03/11/2023 11:07 INDICATION: Left knee injury and pain. TECHNIQUE: 3 views of left knee were obtained. COMPARISON: None. FINDINGS: Bone alignment is normal. No fracture. Joint spaces are well maintained. There is no knee j oint effusion. IMPRESSION: 1. Normal left knee. Reviewed, dictated and finalized at location A. IMPRESSION: 1. Normal left knee.
[2023-03-11 10:45] VITALS: BP 118/77; PULSE 82; RESP 20; TEMP 36.9; O2SAT 96
--- NOTE | 2023-03-11 11:48 | ED.FALL ---
HPI - Fall General Chief Complaint: Fall Stated Complaint: fall down 8 steps, LE injuries Time Seen by Provider: 03/11/23 10:49 History of Present Illness HPI Narrative: Patient is a 32-year-old female who presents ER with left ankle and knee pain. Patient was walking down her steps when she slipped and her leg got caught behind her. She did not strike her head or lose consciousness. Unable to bear weight due to pain and swelling in her ankle. No numbness or tingling. No additional injuries. Brought in by EMS. Received fentanyl by EMS with improvement of discomfort. Related Data Home Medications Medication Instructions Recorded Confirmed semaglutide 0.25 mg or 0.5 mg (2 0.25 mg subcut WEEKLY 12/19/22 12/19/22 mg/3 mL) subcutaneous pen injector (Ozempic) Allergies Allergy/AdvReac Type Severity Reaction Status Date / Time azithromycin Allergy Unknown Hives Verified 03/11/23 10:54 erythromycin base Allergy Unknown Hives Verified 03/11/23 10:54 SURGICAL GLUE Allergy Other Uncoded 03/11/23 10:54 Review of Systems Review of Systems: All systems reviewed & are unremarkable except as noted in HPI and below Constitutional: Constitutional: Denies chills and Denies fever(s) Cardiovascular: Cardiovascular: Denies chest pain and Denies rapid heart rate Gastrointestinal: Gastrointestinal: Denies abdominal pain, Denies nausea and Denies vomiting Musculoskeletal: Musculoskeletal: Denies back pain, Denies myalgias, Reports arthralgias and Reports joint swelling Integumentary/Breasts: Skin/Breast: Denies erythema and Denies rash Neurologic: Denies focal weakness and Denies numbness [facility] Past Medical History Medical History (Updated 03/11/23 @ 13:10 by Wil Weiss MD) ADHD Anemia Anxiety Bipolar disorder Chlamydia Close exposure to COVID-19 virus Depression Endometriosis determined by laparoscopy Gastroenteritis Hydronephrosis Panic disorder 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 Postoperative pain Surgical History Surgical History H/O dilation and curettage H/O: hysterectomy Family History Family History Father Family history of elevated blood lipids Patient's father is in good health Mother Hypertension Sibling Patient's brother is in good health Social History Social History Social History: Caffeine- Daily Smoking status: Former smoker Tobacco type: cigarettes Second hand tobacco smoke exposure: Yes Additional smoking assessment comments: ONLY AT AGE 21 Alcohol intake: current Alcohol use details: VERY RARE Substance use: current Substance use type: marijuana Living arrangements: with family Spiritual care concerns: No Exam Narrative: GENERAL: Well-appearing, well-nourished, and in no acute distress. HEAD: Normocephalic, atraumatic. ENT: Mucous membranes moist. CHEST: Clear to auscultation. No respiratory distress. HEART: Regular rate and rhythm. Normal peripheral pulses. EXTREMITIES: Left ankle swelling and tenderness over bilateral malleoli, decreased range of motion due to pain. Sensation intact as are pulses. No reproducible tenderness of the left knee. Normal right lower extremity exam. SKIN: Warm, dry, no rash. NEURO: Alert and oriented x3. PSYCH: Normal mood and affect. Course Course Emergency Course: Discussed case with Dr. Jordan who will have the patient follow-up and he will take to the OR later in the week. Patient educated on diagnosis and treatment plan and verbalized understanding. Patient received pain medication for home. She will be placed in a short leg posterior splint. Vital Signs Vital signs: Vital Signs Temperature 98.4 F 03/11/23 10:45 Pulse Rate 82 03/11/23 10:45 Respiratory Rate 20 03/11/23 10:45 Blood Pressure 118/77
[2023-03-11] MEDS: HYDROcodone/acetaminophen (*CRX) 5-325 MG TABLET 1 TAB PO (12:06)
--- NOTE | 2023-03-11 12:41 | PC.NURSE ---
Dr. Whitney came to speak to pt about surgery.
[2023-03-11 12:49] VITALS: BP 112/55; PULSE 81; RESP 18; O2SAT 99
[2023-03-11 13:34] VITALS: BP 142/84; PULSE 94; RESP 16; O2SAT 98
== END 2023-03-11 13:37 | disposition home or self-care (01) ==
PROVIDERS: Emergency Provider Emergency Medicine; PCP Internal Medicine
DX: S82.852A Displaced trimalleolar fracture of left lower leg, initial encounter for closed fracture (principal); N80.9 Endometriosis, unspecified; Z90.710 Acquired absence of both cervix and uterus; Z87.891 Personal history of nicotine dependence; Z86.2 Personal history of diseases of the blood and blood-forming organs and certain disorders involving the immune mechanism; Z79.85 Long-term (current) use of injectable non-insulin antidiabetic drugs; W10.9XXA Fall (on) (from) unspecified stairs and steps, initial encounter
CPT/HCPCS: 29515; 73562; 73610; 99284; A9270

== ENCOUNTER 2023-03-14 03:05 | Day surgery (SDC) | payer OTHER, SELFPAY ==
[2023-03-11 14:24] VITALS: BMI 42.0
--- NOTE | 2023-03-11 14:32 | PC.NURSE ---
Report to the Outpatient Waiting Room, entrance under the green pavilion located off [facility], at time 0900 on date 03/14/23. Planned Procedure Time: 1100. Time changes happen often and if your time is changed the preop area will call you the afternoon before. - You and your visitor will be asked to self-screen and do not enter if you have any COVID symptoms. - A mask is optional within the hospital at this time. Patients may have clear liquids (water, carbonated beverages, clear teas, apple juice) until 3 hours prior to surgery with a maximum of 20 ounces. - No food from midnight until time of surgery Take the following medications with a SIP of water the morning of surgery: SERTRALINE, PAIN PILL IF NEEDED DO NOT STOP ANY OF YOUR OTHER PRESCRIPTION MEDICATIONS PRIOR TO SURGERY ?EXCEPT THE FOLLOWING Medications to discontinue per physician: OZEMPIC Date to take last dose: SKIP TODAY'S DOSE - DO NOT TAKE UNTIL AFTER SURGERY Please no make-up, nail divehi, hairspray, perfume, deodorant, or body powder the day of surgery. No jewelry (including any body piercings) or valuables the day of surgery, leave them at home. Please take a shower or bath the night before, or the morning of, surgery with an antibacterial soap. Wear comfortable, loose fitting clothing. - Jewelry must be removed prior to entering the operating room. Rings and piercings that are not removed may be cut off. - The hospital will not accept responsibility for valuables. - Please leave all valuables, including medications, at home the day of surgery. If you are going home after surgery, a licensed milk pickup driver must drive you home. - NO public transportation without another adult if you receive anesthesia. - We recommend that an adult stay with you for 24 hours following discharge. - We also recommend that you do not drive, make important decision, drink alcoholic beverages, or take any drugs that were not prescribed by your health care provider for at least 24 hours after your discharge time. Follow any additional instructions given to you from your surgeon. If you or anyone in your household have experienced Covid symptoms in the past week, please notify your surgeon or the nurse liaison at the phone number below for possible testing. Telephone instructions given to PT - JANICE MENDEZ and asked if any additional questions and then verbalized understanding. Patient advised to call surgeon office or pre surgery nurse liaison [phone] if any additional questions.
--- NOTE | 2023-03-13 13:31 | P.PNAN_ITS ---
Anes - Initial Pre Proc Eval Procedure: Operation Date: 03/14/23 11:00 Proposed Procedures p Open Reduction Internal Fixation Left Lateral Malleolar Fracture, Possible Syndesmosis - Sal Jordan MD Date/Time: 03/13/23 13:31 Surgeon: Sal Jordan MD Pre Op Diagnosis: left ankle fx Patient Data Age: 32 Gender: F Height: 1.57 m Weight: 104.35 kg Allergies Allergy/AdvReac Type Severity Reaction Status Date / Time azithromycin Allergy Unknown Hives Verified 03/11/23 14:25 erythromycin base Allergy Unknown Hives Verified 03/11/23 14:25 SURGICAL GLUE Allergy Other Uncoded 03/11/23 14:25 Home Medications Medication Instructions Recorded Confirmed Type semaglutide 0.25 mg or 0.5 mg (2 0.25 mg subcut WEEKLY 12/19/22 03/14/23 History mg/3 mL) subcutaneous pen injector (Ozempic) sertraline 50 mg tablet 50 mg PO DAILY #90 tabs 01/30/23 03/14/23 Rx oxycodone-acetaminophen 5 mg-325 1 tablet PO Q6H PRN pain #20 tabs 03/11/23 03/14/23 Rx mg tablet (Percocet) Patient hx anesthesia problems: none Family hx anesthesia problems: none Results Review: All pre-operative results and documents have been reviewed as part of the pre- operative evaluation. [facility] Past Medical History Medical History (Updated 03/14/23 @ 09:59 by Sal Jordan MD) ADHD Anemia Anxiety Bipolar disorder Chlamydia Close exposure to COVID-19 virus Depression Endometriosis determined by laparoscopy Gastroenteritis Hydronephrosis Panic disorder 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 Postoperative pain Surgical History Surgical History H/O dilation and curettage H/O: hysterectomy Family History Family History Father Family history of elevated blood lipids Patient's father is in good health Mother Hypertension Sibling Patient's brother is in good health Social History Social History Social History: Caffeine- Daily Smoking status: Former smoker Tobacco type: cigarettes Second hand tobacco smoke exposure: Yes Smoking end date: 09/09/12 Additional smoking assessment comments: ONLY SMOKED A COUPLE MONTHS Alcohol intake: current Alcohol use details: RARE Substance use: current Substance use type: marijuana Living arrangements: with family Spiritual care concerns: No Anes - Eval Final PreProcedure Day of Procedure 03/13/23 13:31 Patient weight: morbidly obese Heart: regular rate and rhythm Lungs: clear to auscultation Airway: Mallampati scale class II Neurological: alert and oriented Last oral intake: >/= 8 hours ASA classification: III Emergent: no Anesthetic plan: proceed Anesthesia type and monitoring: general LMA and standard monitoring Results Review: All pre-operative results and documents have been reviewed as part of the pre- operative evaluation. Informed Consent: The patient's anesthetic plan and its attendant risks and benefits were discussed with the patient/family/POA. Questions were solicited and answers provided to the satisfaction of the patient/family/POA.
[2023-03-14] VITALS (9 sets, daily range): BP systolic 108–118; BP diastolic 58–77; PULSE 70–90; RESP 10–18; TEMP 36.3–37.2; O2SAT 94–100
--- NOTE | ~2023-03-14 | XR_ITS ---
EXAMINATION: XR surgery orthopedic DATE: 03/14/2023 12:20 INDICATION: Left fibular fracture. TECHNIQUE: 5 intraoperative spot fluoroscopic views of left ankle were obtained. I was not present. F luoroscopy exposure time was 36 seconds. COMPARISON: Left ankle radiographs 03/11/2023 FINDINGS: There is an oblique fracture of distal fibula in near-anatomic alignment status post open r eduction internal fixation with plate and screws and 2 interfragmentary screws. IMPRESSION: 1. Oblique fracture of distal fibula in near-anatomic alignment status post open reduction internal f ixation. Reviewed, dictated and finalized at location A. IMPRESSION: 1. Oblique fracture of distal fibula in near-anatomic alignment status post ope n reduction internal fixation.
[2023-03-14] MEDS: ACETAMINOPHEN 500 MG TABLET 1000 MG PO (09:21)
[2023-03-14] MEDS: LACTATED RINGERS 1,000 ML 30 ML IV CONT ×2 (09:43→12:18)
--- NOTE | 2023-03-14 09:57 | PM.CNOR ---
Assessment and Plan Assessment and plan (1) Fracture of lateral malleolus of left ankle: Qualifiers: Encounter type: initial encounter Fracture type: closed Fracture alignment: displaced Qualified Code(s): S82.62XA - Displaced fracture of lateral malleolus of left fibula, initial encounter for closed fracture Code(s): S82.62XA - Displaced fracture of lateral malleolus of left fibula, initial encounter for closed fracture Status: Acute Plan Displaced lateral malleolus fracture with associated deltoid ligament injury. The ankle mortise is unstable. The fracture will benefit from ORIF. We discussed the risks, benefits, and alternatives to surgery. Plan on plate and screw fixation of the lateral malleolus with possible syndesmosis fixation if necessary. History of Present Illness HPI Consult date: 03/14/23 Chief complaint: left ankle fx Narrative: Patient was seen in the emergency room March 11. She twisted her ankle awkwardly. Complains of immediate pain inability to bear weight bear. Treated appropriately with a splint and referred for definitive management. Examination Overweight female. Uncomfortable. Mild swelling. Exquisite tenderness at the distal fibula and at the medial deltoid ligament area. No gross deformity. Wiggles toes. Skin intact. Diagnostics Radiographs show mildly displaced oblique distal fibula fracture. The ankle mortise show significant widening suggesting significant deltoid ligament injury. [facility], [facility] Past Medical History Medical History (Updated 03/14/23 @ 09:59 by Sal Jordan MD) ADHD Anemia Anxiety Bipolar disorder Chlamydia Close exposure to COVID-19 virus Depression Endometriosis determined by laparoscopy Gastroenteritis Hydronephrosis Panic disorder 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 Postoperative pain Surgical History Surgical History H/O dilation and curettage H/O: hysterectomy Family History Family History Father Family history of elevated blood lipids Patient's father is in good health Mother Hypertension Sibling Patient's brother is in good health Social History Social History Social History: Caffeine- Daily Smoking status: Former smoker Tobacco type: cigarettes Second hand tobacco smoke exposure: Yes Smoking end date: 09/09/12 Additional smoking assessment comments: ONLY SMOKED A COUPLE MONTHS Alcohol intake: current Alcohol use details: RARE Substance use: current Substance use type: marijuana Living arrangements: with family Spiritual care concerns: No Meds Home Medications and Allergies Home Medications Medication Instructions Recorded Confirmed Type semaglutide 0.25 mg or 0.5 mg (2 0.25 mg subcut WEEKLY 12/19/22 03/14/23 History mg/3 mL) subcutaneous pen injector (Ozempic) sertraline 50 mg tablet 50 mg PO DAILY #90 tabs 01/30/23 03/14/23 Rx oxycodone-acetaminophen 5 mg-325 1 tablet PO Q6H PRN pain #20 tabs 03/11/23 03/14/23 Rx mg tablet (Percocet) Allergies Allergy/AdvReac Type Severity Reaction Status Date / Time azithromycin Allergy Unknown Hives Verified 03/11/23 14:25 erythromycin base Allergy Unknown Hives Verified 03/11/23 14:25 SURGICAL GLUE Allergy Other Uncoded 03/11/23 14:25 Vital Signs Vital Signs - 24 hr 03/14/23 09:45 Temperature 36.3 C L Pulse Rate 83 Respiratory Rate 16 Blood Pressure 109/73 Pulse Oximetry 99 Oxygen Delivery Room Air Results Labs Labs: All other labs normal. [facility] Consult Billing Inpatient Consult Inpatient Consults: [id number] Consult Mod High (Seen in the ED 03/11/23)
--- NOTE | 2023-03-14 10:01 | WPDHPUPDATE1 ---
History and Physical Update Update Date/Time: 03/14/23 10:01 History and Physical has been reviewed, including an updated exam of the patient. There are NO changes in the patient's condition. Risks, benefits, and alternatives have been discussed and questions answered. Patient agrees to proceed with procedure.
--- NOTE | 2023-03-14 10:29 | WPDANESPNB ---
Anes - Peripheral Nerve Block Date/Time: 03/14/23 10:29 I have discussed with the patient/family/POA the placement of a peripheral nerve block for post-operative pain management, including associated risks, benefits, complications, and side effects. Alternative methods of post-operative analgesia were detailed. Questions were solicited and answers provided to the satisfaction of the patient/family/POA. Time-Out: A pre-procedural Time-Out was completed immediately before starting the procedure and confirmed: Patient Identification, Site, Procedure, Patient Position and the Availability of Requisite Equipment. Clinical Indications: Acute post-operative pain management requested by the operative surgeon. Nerve Block Insertion Note Anes-nerve block: posterior fossa sciatic left and adductor canal left Patient position: supine (for adductor canal) and other (right lateral for popliteal) Skin prep: chlorhexidine Needle: 22 gauge, stimulating, insulated echogenic needle. Needle length: 80 mm Technique: nerve stimulation lost at (mA) (for popliteal lost at 0.2) and ultrasound Injectate: bupivacaine 0.5% with epi 5 mcg/ml (20 mL for popliteal, 10 mL for adductor canal (no epi)) Observations: tolerated well Complications: none Procedure start time:: 1038 Procedure end time:: 1046
[2023-03-14] MEDS: KETOROLAC 15 MG/ML VIAL (*BKC) IV PUSH (10:40)
[2023-03-14] MEDS: SCOPOLAMINE 1.5 MG PATCH TRANSDERM (10:41)
[2023-03-14] MEDS: ceFAZolin 2 GM/D5W 50 ML 2 GM/50 ML BAG IVPB (10:50)
[2023-03-14] MEDS: BUPIVACAINE/EPINEPHRINE 0.5% 50 ML VIAL 30 ML INFILTRATE (11:25)
[2023-03-14] MEDS: ONDANSETRON INJ 4 MG/2 ML VIAL IV PUSH (12:34)
--- NOTE | 2023-03-14 12:46 | P.OP_ITS ---
Procedure Note - Detailed Date of Procedure 03/14/23 Pre-op Diagnosis Left ankle fracture including lateral malleolus and posterior malleolus. Deltoid ligament injury. Post-op Diagnosis Same Procedure Performed ORIF lateral malleolus, left ankle. Surgeon Sal Jordan MD Anesthesia General and Regional Findings Fracture reduced anatomically with 2 anterior to posterior lag screws and a neutralization plate. The fracture was fairly distal. The syndesmosis was intact. Description of Procedure A general anesthetic was administered. The limb was prepped and draped in the usual sterile fashion with a well-padded tourniquet high on the thigh. A bump was placed under the hip. The limb was exsanguinated and the tourniquet inflated to 300 millimeters of mercury during the procedure. A longitudinal incision was created at the distal fibula. Careful dissection was carried down to bone. Perineal nerve branches were protected. The fracture was carefully exposed. Callus and debris was irrigated from the wound. The fracture was brought out to length. Reduction was accomplished with the reduction forceps. Two anterior to posterior lag screws were placed. The fixation plate was contoured. Fixation was performed with a combination of cortical and cancellous screws. Fluoroscopy was used throughout the procedure to confirm anatomic reduction and appropriate placement of the implants. The tourniquet was released. Meticulous hemostasis was obtained. Wound was closed in layers with 2-0 Vicryl suture 3-0 Monocryl suture and rula. A sterile dressing with well padded splint was applied. The patient was extubated and brought to the rec overy room in stable condition. There were no complications. Implants Synthes 1/3 tubular plate. Nonlocking screws. Two anterior to posterior lag sc rews. Estimated Blood Loss 5 Complications No immediate complications Condition Stable Disposition PACU [facility] Billing Surgery - Charge Forward: Surgery Billing
[2023-03-14] MEDS: diphenhydrAMINE HCl INJ 50 MG/ML VIAL 25 MG IV PUSH (12:58)
== END 2023-03-14 14:32 | disposition home or self-care (01) ==
PROVIDERS: PCP Internal Medicine; Visit Provider Orthopaedic Surgery
PROC: (CPT 27792; principal; 2023-03-14 11:00)
DX: S82.62XA Displaced fracture of lateral malleolus of left fibula, initial encounter for closed fracture (principal); S93.422A Sprain of deltoid ligament of left ankle, initial encounter; G89.18 Other acute postprocedural pain; X50.0XXA Overexertion from strenuous movement or load, initial encounter; F31.9 Bipolar disorder, unspecified; F41.9 Anxiety disorder, unspecified; E66.01 Morbid (severe) obesity due to excess calories; Z68.41 Body mass index [BMI] 40.0-44.9, adult
CPT/HCPCS: 27792; 64447; 64445; 99199; A9270; C1713; J0690; J1100; J1170; J1200; J1885; J2250; J2405; J2704; J3010; J7120

== ENCOUNTER 2023-06-28 12:54 | Outpatient (CLI) | payer OTHER, SELFPAY ==
--- NOTE | ~2023-06-28 | MR_ITS ---
MRI of the left ankle Clinical history: Achilles tendinitis Technique: Coronal proton-density and proton-density fat-sat images, axial proton-density and proton- density fat-sat images, and sagittal proton-density and proton-density fat-sat images were acquired. Findings: There is orthopedic hardware along the distal fibula/lateral malleolus with associated susc eptibility artifact. Syndesmotic ligament are grossly intact. Anterior and posterior talofibular liga ments, and calcaneofibular ligament are grossly intact. Deltoid ligament is intact. Medial flexor tendons and anterior extensor tendons are intact. Peroneal tendons are poorly seen due to extensive susceptibility artifact, but are grossly intact. Achilles tendon is intact. There is extensive marrow edema at the medial aspect of the talus/talar dome, probably due to overlyi ng chondromalacia versus possibly bone contusion. No fracture evident. No osteochondral fragment evid ent. Remaining bone marrow signals are essentially unremarkable. Joint spaces appear intact. Plantar fascia intact. No soft tissue mass or fluid collection evident. Impression: Achilles tendon is unremarkable. Extensive marrow edema at the medial aspect of the talus/talar dome. This could be due to overlying c hondromalacia/reactive marrow edema versus possibly bone contusion. Correlate clinically. Status post prior lateral orthopedic fixation of the distal fibula. Reviewed, dictated and finalized at [facility]. Impression: Achilles tendon is unremarkable. Extensive marrow edema at the medial aspect of the talus/talar dome. This could be due to overlying chondromalacia/reactive marrow edema versus possibly bone contusion. Correlate clinically. Status post prior lateral orthopedic fixation of the distal fibula.
== END 2023-06-28 12:55 ==
LOC: GOSHIMG 12:55
PROVIDERS: PCP Internal Medicine; Visit Provider Podiatrist Foot & Ankle Surgery
DX: M25.572 Pain in left ankle and joints of left foot (principal)
CPT/HCPCS: 73721

== ENCOUNTER 2024-01-03 12:52 | Emergency (ER) | payer OTHER, SELFPAY ==
[2024-01-03 13:21] VITALS: BP 138/78; PULSE 82; RESP 18; TEMP 36.6
--- NOTE | 2024-01-03 13:25 | ED.FEMALEGU ---
HPI - Female Genitourinary General Chief complaint: Urogenital-Female Stated complaint: poss UTI Time Seen by Provider: 01/03/24 13:25 Source: patient, RN notes reviewed and old records reviewed Mode of arrival: ambulatory Limitations: no limitations History of Present Illness HPI Narrative: 33-year-old female presents to the [facility] with complaints of burning, frequency, feeling like she is not emptying her bladder and nausea. Denies any back pain. States symptoms started Saturday. Denies any fevers or abdominal pain. 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 Reports concerns for STDs, will test for chlamydia, gonorrhea Trichomonas Last menstrual period was a few days ago Related Data Home Medications Medication Instructions Recorded Confirmed No Home Medications 01/03/24 01/03/24 Allergies Allergy/AdvReac Type Severity Reaction Status Date / Time azithromycin Allergy Unknown Hives Verified 01/03/24 13:16 erythromycin base Allergy Unknown Hives Verified 01/03/24 13:16 SURGICAL GLUE Allergy Other Uncoded 01/03/24 13:16 Review of Systems Review of Systems: All systems reviewed & are unremarkable except as noted in HPI and below Constitutional: Constitutional: Reports no additional constitutional complaints Eyes: Eyes: Reports no additional eye complaints ENT: Reports system reviewed and no additional complaints, except as documented Cardiovascular: Cardiovascular: Reports no additional cardiovascular complaints, Denies chest pain and Denies dyspnea Respiratory: Respiratory: Reports no additional respiratory complaints, Denies chest congestion, Denies cough and Denies dyspnea Gastrointestinal: Gastrointestinal: Reports no additional gastrointestinal complaints, Denies abdominal pain, Denies nausea and Denies vomiting Genitourinary: Genitourinary: Reports as per HPI Musculoskeletal: Musculoskeletal: Reports no additional musculoskeletal complaints Integumentary/Breasts: Skin/Breast: Reports system reviewed and no additional complaints, except as docu Neurologic: Reports system reviewed and no additional complaints, except as documented Psychiatric: Psychiatric: Reports no additional psychiatric complaints Allergic/Immunologic: Allergic/Immunologic: Reports no additional allergic/immunologic complaints PMFSH Past Medical History Medical History ADHD Anemia Anxiety Bipolar disorder Chlamydia Close exposure to COVID-19 virus Depression Endometriosis determined by laparoscopy Gastroenteritis Hydronephrosis Panic disorder 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 Postoperative pain Surgical History Surgical History H/O dilation and curettage H/O: hysterectomy Family History Family History Father Family history of elevated blood lipids Patient's father is in good health Mother Hypertension Sibling Patient's brother is in good health Social History Social History Social History: Caffeine- Daily Smoking status: Former smoker Tobacco type: cigarettes Second hand tobacco smoke exposure: Yes Smoking end date: 09/09/12 Additional smoking assessment comments: ONLY SMOKED A COUPLE MONTHS Alcohol intake: current Alcohol use details: RARE Substance use: current Substance use type: marijuana Lack of Transportation: No Lack of Food: Never True Current Housing: I Have Housing Concerned About Future Housing: No Difficulty Paying Gas/Electric Bills: No Difficulty Paying for Meds: No Currently Unemployed: No Education: High School Diploma/GED Difficulty w/ Childcare or Family Care: No Living arrangements: with family Spiritual care
[2024-01-03 19:50] LABS: Trichomonas Vag PCR NOT DETECTED (NOT DETECTE)
[2024-01-03 20:14] LABS: Chlamydia trachomatis NOT DETECTED (NOT DETECTE); Neisseria gonorrhoeae PCR NOT DETECTED (NOT DETECTE)
[2024-01-07 00:53] LABS: Bacterial Vaginosis POSITIVE (NEGATIVE)
== END 2024-01-03 13:48 | disposition home or self-care (01) ==
PROVIDERS: Emergency Provider Nurse Practitioner; PCP Internal Medicine
DX: N76.0 Acute vaginitis (principal); R30.0 Dysuria; Z87.891 Personal history of nicotine dependence; N80.9 Endometriosis, unspecified
CPT/HCPCS: 81003; 81513; 87070; 87086; 87491; 87591; 87661; 99214; G0463

== ENCOUNTER 2024-06-12 09:36 | Outpatient (CLI) | payer BC, SELFPAY ==
--- NOTE | ~2024-06-12 | XR_ITS ---
Left ankle Technique: AP, oblique, and lateral views were obtained. Clinical History: Instability COMPARISON: 04/25/2023 Findings: No acute fracture or dislocation is seen. Prior ORIF of the distal fibula is unchanged. Oss eous alignment is anatomic. Ankle mortise and other visualized joint spaces are preserved. Soft tiss ues are otherwise unremarkable. Impression: No acute abnormality. Stable ORIF changes at the distal fibula. Reviewed, dictated and finalized at location M. Impression: No acute abnormality. Stable ORIF changes at the distal fibula.
== END 2024-06-12 09:37 | disposition home or self-care (01) ==
PROVIDERS: PCP Clinical Nurse Specialist; Visit Provider Clinical Nurse Specialist
DX: M25.572 Pain in left ankle and joints of left foot (principal)
CPT/HCPCS: 73610

== ENCOUNTER 2025-03-15 13:39 | Emergency (ER) | payer OTHER, SELFPAY ==
--- OUTSIDE RECORDS SUMMARY | 2025-03-15 13:43 | XMS_ITS | Referral Summary ---
Author Organization [facility] Address [address] [place] [id number] Care Team Providers Care Chocolate Dipper Name Role Phone Michael Yuan DO Primary Care Provider [phone] Allergies Active Allergy Reactions Criticality Noted Date Comments Erythromycin Rash Reaction: RASH Social History Tobacco Use Types Packs/Day Years Used Date Smoking Tobacco: Never Assessed Personal Safety Answer Date Recorded Have you ever been in or are you currently in a harmful physical or emotional relationship or is someone making you feel afraid or unsafe? Denies 02/12/2024 Comments No Sex and Gender Information Value Date Recorded Sex Assigned at Not on file Legal Sex Female 6:19 PM DIRECTOR OF ORTHOPEDICS Gender Identity Not on file Sexual Orientation Not on file Last Filed Vital Signs Vital Sign Reading Time Taken Comments Blood Pressure 134/90 02/12/2024 2:00 PM CDT Pulse 68 02/12/2024 2:00 PM CDT Temperature 36.7 C (98.1 F) 02/12/2024 9:10 AM CDT Respiratory Rate 16 02/12/2024 9:45 AM CDT Oxygen Saturation 98% 02/12/2024 2:00 PM CDT Inhaled Oxygen Concentration - - Weight 99.8 kg (220 lb) 02/12/2024 9:10 AM CDT Height 157.5 cm (5' 2) 08/27/2021 7:12 PM DIRECTOR OF ORTHOPEDICS Body Mass Index 40.24 08/27/2021 7:12 PM DIRECTOR OF ORTHOPEDICS Plan of Treatment Not on file Insurance [facility] CHOICE PLUS [facility] HMO/PPO Address: [address] [address] [place] [address] [place] [address] [address] [employer] CHOICE PLUS [facility] HMO/PPO Address: [address] [place] [address] [employer] [facility] CHOICE PLUS [facility] HMO/PPO Address: [id number] [place] [id number] [facility] Care Teams Chocolate Dipper Relationship Specialty Start Date End Date Michael Yuan DO PCP - General Internal Medicine 02/12/24
--- OUTSIDE RECORDS SUMMARY | 2025-03-15 13:43 | XMS_ITS | Clinical Summary ---
Author Organization [facility] Address [address] [place] [address] Care Team Providers Care Lidder Name Role Phone Michael Yuan DO Primary Care Provider [phone] Allergies Active Allergy Reactions Criticality Noted Date [...] on file Legal Sex Female 6:19 PM AMBULATORY NURSE Gender Identity Not on file Sexual Orientation Not on file Obstetrics History Last Filed Vital Signs Vital Sign Reading [...] 157.5 cm (5' 2) 08/27/2021 7:12 PM AMBULATORY NURSE Body Mass Index 40.24 08/27/2021 7:12 PM AMBULATORY NURSE Plan of Treatment Health Maintenance Due Date Last Done Comments Cervical Cancer Screening 1992 Depression Screening 1992 Hepatitis C Screening 1992 Varicella Vaccines (1 of 2 - 13+ 2-dose series) 2005 Hepatitis B Screening 2010 Regular Well Visit/Exam 18-64 2010 Influenza Vaccine (Season Ended) 2025 07/06/2021, 06/25/2020, 07/06/2018, Additional history exists DTaP/Tdap/Td Vaccine (2 - Td or Tdap) 08/23/2031 08/23/2021 HPV Vaccines Aged Out No longer eligi ble based on patient's age to complete this topic Pneumococcal vaccine <65 Aged Out No longer eligible based on patient's age to complete this topic Insurance [facility] CHOICE PLUS [facility] CHOICE PLUS [employer] [facility] CHOICE PLUS [facility] Care Teams Lidder Relationship Specialty Start Date End Date Michale Yuan DO PCP - General Internal Medicine 02/12/24
--- OUTSIDE RECORDS SUMMARY | 2025-03-15 13:44 | XMS_ITS | Data Portability ---
Author Organization [facility], [place] Address [address] [place] [address] Care Team Providers Care Sports Manager Name Role Phone MARCEL MONTOYA Primary Care Provider Assessment Encounter Date Assessment Date Assessment LastModified by Organization Details LastModified Time 03/15/2020 03/15/2020 Annual gynecological exam performed. Patient will come back in a year unless there are new symptoms. Not available 03/15/2020 13:59:14 11/11/2020 11/11/2020 Additional precautionary measures were taken to minimize potential exposure to the Covid-19 virus during this patient s visit, including available hand technical sales representatives upon arrive, temperature check and being asked a series of screening questions. All staff wore face coverings during this encounter, as well as provided additional cleaning and sanitizing of all surfaces, including countertops, pens, chairs, door handles, light switches, etc, prior to and following the patient s visit. [email or web address] Not available 11/11/2020 16:02:38 Plan of Treatment Reminders Order Date Submit Date Provider Last Modified By Organization Details Last Modified Time Details Appointments None recorded. Lab unlisted lab - [facility] health panel 2019 020 LIL[facility] ([facility]), [address] [facility] , [address], [place], [address], 0 06:30:45 Referral None recorded. Procedures None recorded. Surgeries None recorded. Imaging None recorded. Medication Orders Metrogel Vaginal 0.75 % (37.5 mg/5 gram) 2019 020 [email or web address] [id number] [facility] [id number] In [facility], [place], [address], 1 15:51:05 Patient TargetsNo targets recorded. Patient InstructionsNo instructions recorded. Reason for Referral None Reported. Results Created Date Observation Date Name Description Value Unit Range Abnormal Flag Note LastModifiedBy Organization Detail LastModifiedTime 03/15/20 20 03/16/2020 [facility] [place] [facility] WBC 8.9 K/uL 3.8-11 .5 Not Available [facility] ([facility]) [address] [place] [address] Dr Don, [place], [address], 03/16/2020 06:30:45 03/15/20 20 03/16/2020 [facility] restr ict [facility] [place] [facility] red blood cell count (RBC) 4.98 M/mm3 3.60-5 .30 Not Available [facility] ([facility]) [address] [place] [address] Dr Don, [place], [address], 03/16/2020 06:30:45 03/15/20 20 03/16/2020 clnt restr ict [facility] [place] [facility] hemoglobin (HGB) 13.8 gm/dL 11.5-1 5.5 Not Available [facility] ([facility]) [address] [place] [address] Dr Don, [place], [address], 03/16/2020 06:30:45 03/15/20 20 03/16/2020 clnt restr ict [facility] [place] [facility] hematocrit (HCT) 41.9 % 35.2-4 6.4 Not Available [facility] ([facility]) [address] [place] [address] Dr Don, [place], [address], 03/16/2020 06:30:45 03/15/20 20 03/16/2020 clnt restr ict [facility] [place] [facility] MCV 84.1 fL 79.0-9 9.0 Not Available [facility] ([facility]) [facility] [address], [place], [address], 03/16/2020 06:30:45 03/15/20 20 03/16/2020 clnt restr ict [facility] [place] [facility] MCH 27.7 pg 26.9-3 5.0 Not Available [facility] ([facility]) [facility] [address], [place], [address], 03/16/2020 06:30:45 03/15/20 20 03/16/2020 clnt restr ict [facility] [place] [facility] MCHC 32.9 g/dL 30.4-3 4.8 Not Available [facility] ([facility]) [address] [place] [address] Dr Don, [place], [address], 03/16/2020 06:30:45 03/15/20 20 03/16/2020 clnt restr ict [facility] [place] [facility] RDW 42.5 fL 38.6-5 3.8 Not Available [facility]) [facility] [address], [place], [address], 03/16/2020 06:30:45 03/15/20 20 03/16/2020 clnt restr ict [facility] [place] [facility] platelet count 265 K/cum m 137-39 7 Not Available [facility] ([facility]) [address] [place] [address] Dr Don, [place], [address], 03/16/2020 06:30:45 03/15/20 20 03/16/2020 clnt restr ict [facility] [place] [facility] neutrophils automated 55.7 % 41.0-7 7.0 Not Available [facility] ([facility]) [facility] [address], [place], [address], 03/16/2020 06:30:45 03/15/20 20 03/16/2020 clnt restr ict [facility] [place] [facility] lymphocytes automated 31.4 % 14.0-4 8.0 Not Available [facility] ([facility]) [address] [place] [address] Dr Don, [place], [address], 03/16/2020 06:30:45 03/15/20 20 03/16/2020 clnt restr ict [facility] [place] [facility] monocytes automated 5.6 % 4.0-13 .0 Not Available [facility] ([facility]) [address] [place] [address] Dr Don, [place], [address], 03/16/2020 06:30:45 03/15/20 20 03/16/2020 clnt restr ict [facility] [place] [facility] eosinophils automated 6.2 % 0.0-8. 0 Not Available [facility] ([facility]) [address] [place] [address] Dr Don, [place], [address], 03/16/2020 06:30:45 03/15/20 20 03/16/2020 clnt restr ict [facility] [place] [facility] basophils automated 0.6 % 0.0-1. 5 Not Available [facility] ([facility]) [address] [place] [address] Dr Don, [place], [address], 03/16/2020 06:30:45 03/15/20 20 03/16/2020 clnt restr ict [facility] [place] [facility] immature granulocyte automated 0.5 % 0.0-1. 0 Not Available [facility] ([facility]) [address] [place] [address] Dr Don, [place], [address], 03/16/2020 06:30:45 03/15/20 20 03/16/2020 clnt restr ict [facility] [place] [facility] sodium 142 mEq/L 135-14 5 Not Available [facility] ([facility]) [address] [place] [address] Dr Don, [place], [address], 03/16/2020 06:30:45 03/15/20 20 03/16/2020 clnt restr ict [facility] [place] [facility] potassium 4.2 mEq/L 3.5-5. 3 Not Available [facility] ([facility]) [address] [place] [address] Dr Don, [place], [address], 03/16/2020 06:30:45 03/15/20 20 03/16/2020 clnt restr ict [facility] [place] [facility] chloride 102 mEq/L 97-108 Not Available [facility] ([facility]) [address] [place] [address] Dr Don, [place], [address], 03/16/2020 06:30:45 03/15/20 20 03/16/2020 clnt restr ict [facility] [place] [facility] CO2 28 mEq/L 22-32 Not Available [facility] ([facility]) [address] [place] [address] Dr Don, [place], [address], 03/16/2020 06:30:45 03/15/20 20 03/16/2020 clnt restr ict [facility] [place] [facility] glucose 74 mg/dL 65-99 Not Available [facility] ([facility]) [address] [place] [address] Dr Don, [place], [address], 03/16/2020 06:30:45 03/15/20 20 03/16/2020 clnt restr ict [facility] [place] [facility] BUN 13 mg/dL 6-20 Not Available [facility] ([facility]) [address] [place] [address] Dr Don, [place], [address], 03/16/2020 06:30:45 03/15/20 20 03/16/2020 clnt restr ict [facility] [place] [facility] creatinine 0.58 mg/dL 0.50-1 .00 Not Available [facility] ([facility]) [address] [place] [address] Dr Don, [place], [address], 03/16/2020 06:30:45 03/15/20 20 03/16/2020 clnt restr ict [facility] [place] [facility] calcium 9.5 mg/dL 8.6-10 .4 Not Available [facility] ([facility]) [address] [place] [address] Dr Don, [place], [address], 03/16/2020 06:30:45 03/15/20 20 03/16/2020 clnt restr ict [facility] [place] [facility] protein 7.2 g/dL 6.0-8. 3 Not Available [facility] ([facility]) [address] [place] [address] Dr Don, [place], [address], 03/16/2020 06:30:45 03/15/20 20 03/16/2020 clnt restr ict [facility] [place] [facility] albumin 4.6 g/dL 3.5-5. 3 Not Available [facility] ([facility]) [address] [place] [address] Dr Don, [place], [address], 03/16/2020 06:30:45 03/15/20 20 03/16/2020 clnt restr ict [facility] [place] [facility] alkaline phosphatase 65 IU/L 35-121 Not Available [facility] ([facility]) [facility] [address], [place], [address], 03/16/2020 06:30:45 03/15/20 20 03/16/2020 clnt restr ict - [place] [facility] ALT (SGPT) 16 IU/L <5-47 Not Available [facility] ([facility]) [address] [place] [address] Dr Don, [place], [address], 03/16/2020 06:30:45 03/15/20 20 03/16/2020 clnt restr ict - [place] [facility] AST (SGOT) 14 IU/L <5-40 Not Available [facility] ([facility]) [address] [place] [address] Dr Don, [place], [address], 03/16/2020 06:30:45 03/15/20 20 03/16/2020 clnt restr ict - [place] [facility] bilirubin, total 0.4 mg/dL <0.2-1 .2 Not Available [facility] ([facility]) [address] [place] [address] Dr Don, [place], [address], 03/16/2020 06:30:45 03/15/20 20 03/16/2020 clnt restr ict - [place] [facility] A/G ratio 1.8 mg/dL 1.1-2. 5 Not Available [facility] ([facility]) [address] [place] [address] Dr Don, [place], [address], 03/16/2020 06:30:45 03/15/20 20 03/16/2020 clnt restr ict - [place] [facility] panel cholesterol 197 mg/dL <200 Not Available [facility] ([facility]) [address] [place] [address] Dr Don, [place], [address], 03/16/2020 06:30:45 03/15/20 20 03/16/2020 clnt restr ict - [place] [facility] triglyceride s 71 mg/dL <150 Not Available [facility] ([facility]) [address] [facility] [address], [place], [address], 03/16/2020 06:30:45 03/15/20 20 03/16/2020 clnt restr ict - [place] [facility] HDL cholesterol 63 mg/dL >39 Not Available [facility] ([facility]) [facility] [address] Don, [place], [address], 03/16/2020 06:30:45 03/15/20 20 03/16/2020 clnt restr ict - [place] [facility] cholesterol / HDL ratio 3.13 ratio 0.00-4 .44 Not Available [facility] ([facility]) [facility] [facility] [address] Don, [place], [address], 03/16/2020 06:30:45 03/15/20 20 03/16/2020 clnt restr ict - [place] [facility] panel non-HDL cholesterol 134 mg/dL <130 high Not Available [facility] ([facility]) [facility] [address], [place], [address], 03/16/2020 06:30:45 03/15/20 20 03/16/2020 clnt restr ict [facility] [place] [facility] LDL cholesterol (calculation ) 120 mg/dL <130 LDL Angelita stero l Level s Less than 100 mg/dL Optim al 100 to 129 mg/dL Near Optim al/ Above Optim al 130 to 159 mg/dL Borde rline High 160 to 189 mg/dL High 190 mg/dL and above Very High * Categ ories as recom hamzah d by the 2004 ATPII I guide lines Not Available [facility] ([facility]) [address] [facility] [address], [place], [address], 03/16/2020 06:30:45 03/15/20 20 03/16/2020 clnt restr ict - [place] [facility] LDL/HDL ratio 1.9 ratio <3.3 Not Available [facility]) [address] [facility] [address], [place], [address], 03/16/2020 06:30:45 03/15/20 20 03/16/2020 clnt restr ict - [place] [facility] TSH reflex to FT4 1.11 mU/L 0.27-4 .20 Not Available [facility]) [facility] [facility] [address], [place], [address], 03/16/2020 06:30:45 03/15/20 20 03/16/2020 clnt restr ict - [place] [facility] vitamin D 25-hydroxy 39.5 NG/mL 30.0-1 00.0 Inter preta tion of Vitam in D 25 OH: < 20 ng/mL - Defic iency 20 - 29 ng/mL - Insuf ficie ncy 30 - 100 ng/mL - Suffi cienc y > 100 ng/mL - Super -ther apeut ic- toxic ity may occur above this level . Clini ga corre latio n requi red. Not Available [facility] ([facility]) [facility] [facility] [address], [place], [address], 03/16/2020 06:30:45 03/15/20 20 03/16/2020 GFR, estim ated (eGFR ), serum estimated GFR (black) 146 mL/mi n/1.7 3m2 >59 Not Available [facility] ([facility]) [facility] [facility] [address], [place], [address], 03/16/2020 06:30:46 03/15/20 20 03/16/2020 GFR, estim ated (eGFR ), serum estimated GFR (other) 126 mL/mi n/1.7 3m2 >59 GFR Categ ories in Chron ic Kidne y Disea se (CKD) GFR Categ ory GFR (mL/m in/1. 73 sq. meter s) Inter preta tion G1 90 or great er Ani l or high* G2 60-89 Mild decre ase* G3a 45-59 Mild to moder ate decre ase G3b 30-44 Moder ate to sever e decre ase G4 15-29 Sever e decre ase G5 14 or less Kidne y failu re *In the absen ce of kidne y damag e, neith er GFR categ ory G1 or G2 fulfi ll the crite rodolfo for CKD (Kidn ey Int Suppl 2013; 3.1-1 50) The CKD-E PI calcu latio n is inten ded for use in patie nts 18 years of age and older . Decre ased calcu latio n accur acy may be seen in patie nts takin g medic ation s that affec t renal excre tion, or in those patie nts with extre mes in muscl e mass or diet. Not Available [facility] ([facility]) [address] [facility] [address], [place], [address], 03/16/2020 06:30:46 03/15/20 20 03/16/2020 clnt restr ict - [place] [facility] WBC 8.9 K/uL 3.8-11 .5 Not Available [facility] ([facility]) [address] [facility] [address], [place], [address], 03/16/2020 06:30:47 03/15/20 20 03/16/2020 clnt restr ict - [place] [facility] red blood cell count (RBC) 4.98 M/mm3 3.60-5 .30 Not Available [facility] ([facility]) [facility] [facility] [address], [place], [address], 03/16/2020 06:30:47 03/15/20 20 03/16/2020 clnt restr ict - [place] [facility] hemoglobin (HGB) 13.8 gm/dL 11.5-1 5.5 Not Available [facility] ([facility]) [address] [place] [address] Dr Don, [place], [address], 03/16/2020 06:30:47 03/15/20 20 03/16/2020 clnt restr ict - [place] [facility] panel hematocrit (HCT) 41.9 % 35.2-4 6.4 Not Available [facility] ([facility]) [address] [place] [address] Dr Don, [place], [address], 03/16/2020 06:30:47 03/15/20 20 03/16/2020 clnt restr ict - [place] [facility] panel MCV 84.1 fL 79.0-9 9.0 Not Available [facility] ([facility]) [address] [place] [address] Dr Don, [place], [address], 03/16/2020 06:30:47 03/15/20 20 03/16/2020 clnt restr ict - [place] [facility] panel MCH 27.7 pg 26.9-3 5.0 Not Available [facility] ([facility]) [address] [place] [address] Dr Don, [place], [address], 03/16/2020 06:30:47 03/15/20 20 03/16/2020 clnt restr ict - [place] [facility] panel MCHC 32.9 g/dL 30.4-3 4.8 Not Available [facility] ([facility]) [address] [place] [address] Dr Don, [place], [address], 03/16/2020 06:30:47 03/15/20 20 03/16/2020 clnt restr ict - [place] [facility] panel RDW 42.5 fL 38.6-5 3.8 Not Available [facility] ([facility]) [facility] [address], [place], [address], 03/16/2020 06:30:47 03/15/20 20 03/16/2020 clnt restr ict - [place] [facility] platelet count 265 K/cum m 137-39 7 Not Available [facility] ([facility]) [address] [place] [address] Dr Don, [place], [address], 03/16/2020 06:30:47 03/15/20 20 03/16/2020 clnt restr ict - [place] [facility] panel neutrophils automated 55.7 % 41.0-7 7.0 Not Available [facility] ([facility]) [address] [place] [address] Dr Don, [place], [address], 03/16/2020 06:30:47 03/15/20 20 03/16/2020 clnt restr ict - [place] [facility] lymphocytes automated 31.4 % 14.0-4 8.0 Not Available [facility] ([facility]) [address] [place] [address] Dr Don, [place], [address], 03/16/2020 06:30:47 03/15/2003/16/2020 clnt restr ict - [place] [facility] panel monocytes automated 5.6 % 4.0-13 .0 Not Available [facility] ([facility]) [address] [place] [address] Dr Don, [place], [address], 03/16/2020 06:30:47 03/15/20 20 03/16/2020 clnt restr ict - [place] [facility] panel eosinophils automated 6.2 % 0.0-8. 0 Not Available [facility] ([facility]) [facility] [address] Don, [place], [address], 03/16/2020 06:30:47 03/15/20 20 03/16/2020 clnt restr ict - [place] [facility] panel basophils automated 0.6 % 0.0-1. 5 Not Available [facility] ([facility]) [address] [place] [address] Dr Don, [place], [address], 03/16/2020 06:30:47 03/15/20 20 03/16/2020 clnt restr ict - [place] [facility] panel immature granulocyte automated 0.5 % 0.0-1. 0 Not Available [facility] ([facility]) [address] [place] [address] Dr Don, [place], [address], 03/16/2020 06:30:47 03/15/20 20 03/16/2020 clnt restr ict - [place] [facility] panel sodium 142 mEq/L 135-14 5 Not Available [facility] ([facility]) [address] [place] [address] Dr Don, [place], [address], 03/16/2020 06:30:47 03/15/20 20 03/16/2020 clnt restr ict - [place] [facility] panel potassium 4.2 mEq/L 3.5-5. 3 Not Available [facility] ([facility]) [address] [place] [address] Dr Don, [place], [address], 03/16/2020 06:30:47 03/15/20 20 03/16/2020 clnt restr ict - [place] [facility] panel chloride 102 mEq/L 97-108 Not Available [facility] ([facility]) [facility] [address] Don, [place], [address], 03/16/2020 06:30:47 03/15/20 20 03/16/2020 clnt restr ict - [place] [facility] CO2 28 mEq/L 22-32 Not Available [facility] ([facility]) [address] [place] [address] Don, [place], [address], 03/16/2020 06:30:47 03/15/20 20 03/16/2020 clnt restr ict - [place] [facility] panel glucose 74 mg/dL 65-99 Not Available [facility] ([facility] [address] [place] [address] Don, [place], [address], 03/16/2020 06:30:47 03/15/20 20 03/16/2020 clnt restr ict - [place] [facility] panel BUN 13 mg/dL 6-20 Not Available [facility] ([facility]) [address] [place] [address] Don, [place], [address], 03/16/2020 06:30:47 03/15/20 20 03/16/2020 clnt restr ict - [place] [facility] creatinine 0.58 mg/dL 0.50-1 .00 Not Available [facility] ([facility]) [address] [place] [address] Don, [place], [address], 03/16/2020 06:30:47 03/15/20 20 03/16/2020 clnt restr ict - [place] [facility] calcium 9.5 mg/dL 8.6-10 .4 Not Available [facility] [address] [place] [address] Don, [place], [address], 03/16/2020 06:30:47 03/15/20 20 03/16/2020 clnt restr ict - [place] [facility] panel protein 7.2 g/dL 6.0-8. 3 Not Available [facility] [address] [place] [address] Don, [place], [address], 03/16/2020 06:30:47 03/15/20 20 03/16/2020 clnt restr ict - [place] [facility] panel albumin 4.6 g/dL 3.5-5. 3 Not Available [facility] [address] [place] [address] Dr Don, [place], [address], 03/16/2020 06:30:47 03/15/20 20 03/16/2020 clnt restr ict - [facility] [place] [facility] panel alkaline phosphatase 65 IU/L 35-121 Not Available [facility] [address] [place] [address] Dr Don, [place], [address], 03/16/2020 06:30:47 03/15/20 20 03/16/2020 clnt restr ict - [facility] [place] [facility] ALT (SGPT) 16 IU/L <5-47 Not Available [facility] [address] [place] [address] Don, [place], [address], 03/16/2020 06:30:47 03/15/20 20 03/16/2020 clnt restr ict - [facility] [place] [facility] AST (SGOT) 14 IU/L <5-40 Not Available [facility] [address] [place] [address] Dr Don, [place], [address], 03/16/2020 06:30:47 03/15/20 20 03/16/2020 clnt restr ict - [facility] bilirubin, total 0.4 mg/dL <0.2-1 .2 Not Available [facility] [address] [place] [address] Dr Don, [place], [address], 03/16/2020 06:30:47 03/15/20 20 03/16/2020 clnt restr ict - [facility] A/G ratio 1.8 mg/dL 1.1-2. 5 Not Available [facility] [address] [place] [address] Dr Don, [place], [address], 03/16/2020 06:30:47 03/15/20 20 03/16/2020 clnt restr ict [facility] cholesterol 197 mg/dL <200 Not Available Path ou -[facility] ([facility]) [address] [place] [address] Dr Don, [place], [address], 03/16/2020 06:30:47 03/15/20 20 03/16/2020 clnt restr ict - [place] [facility] triglyceride s 71 mg/dL <150 Not Available Path ou -[facility] ([facility]) [address] [place] [address] Dr Don, [place], [address], 03/16/2020 06:30:47 03/15/20 20 03/16/2020 clnt restr ict - [place] [facility] panel HDL cholesterol 63 mg/dL >39 Not Available Path group -[facility] ([facility]) [address] [place] [address] Dr Don, [place], [address], 03/16/2020 06:30:47 03/15/20 20 03/16/2020 clnt restr ict - [place] [facility] panel cholesterol / HDL ratio 3.13 ratio 0.00-4 .44 Not Available [facility] ([facility]) [address] [facility] [address] Don, [place], [address], 03/16/2020 06:30:47 03/15/20 20 03/16/2020 clnt restr ict - [place] [facility] panel non-HDL cholesterol 134 mg/dL <130 high Not Available [facility] ([facility]) [address] [facility] [address] Don, [place], [address], 03/16/2020 06:30:47 03/15/20 20 03/16/2020 clnt restr ict - [place] [facility] panel LDL cholesterol (calculation ) 120 mg/dL <130 LDL Angelita stero l Level s Less than 100 mg/dL Optim al 100 to 129 mg/dL Near Optim al/ Above Optim al 130 to 159 mg/dL Borde rline High 160 to 189 mg/dL High 190 mg/dL and above Very High * Categ ories as recom hamzah d by the 2004 ATPII I guide lines Not Available [facility] ([facility]) [address] [facility] [address] [address] Don, [place], [address], 03/16/2020 06:30:47 03/15/20 20 03/16/2020 clnt restr ict - [place] [facility] panel LDL/HDL ratio 1.9 ratio <3.3 Not Available [facility] ([facility]) [address] [facility] [address] Don, [place], [address], 03/16/2020 06:30:47 03/15/20 20 03/16/2020 clnt restr ict - [place] [facility] panel TSH reflex to FT4 1.11 mU/L 0.27-4 .20 Not Available [facility] ([facility]) [address] [facility] [address] [address], [place], [address], 03/16/2020 06:30:47 03/15/20 20 03/16/2020 clnt restr ict - [place] [facility] [facility] panel vitamin D 25-hydroxy 39.5 NG/mL 30.0-1 00.0 Inter preta tion of Vitam in D 25 OH: < 20 ng/mL - Defic iency 20 - 29 ng/mL - Insuf ficie ncy 30 - 100 ng/mL - Suffi cienc y > 100 ng/mL - Super -ther apeut ic- toxic ity may occur above this level . Clini ga corre latio n requi red. Not Available [facility] ([facility]) [address], [place], [address], 03/16/2020 06:30:47 03/15/20 20 03/16/2020 pap, LB Pap test thin prep Negati ve for Intrae pithel ial Lesion or Malign vicki normal ACCES VILMA #: [id number] Sourc e: Cervi ga/E ndoce rvica l LMP: 02/22 Date Taken : 03/15 Speci men Type: ThinP rep Vial Date Repor marley: Clini ga Data: Cytot ech: Nani Donohue r, CT( CP) Date Repor marley: Speci men Adequ acy: Satis facto ry for evalu ation Endoc ervic al/tr ansfo rmati on zone compo nent prese nt Gener al Categ oriza tion: NEGAT CEDRIC FOR INTRA EPITH ELIAL LESIO N OR MALIG JANIS This speci men has been chloe zed by the ThinP rep Imagi ng Syste m, an inter activ e compu ter syste m which caroline ts the lab in the scree karla of ThinP rep Pap Test slide s. Follo wing imagi ng, the slide was revie wed by a Cytot echno logis t and/o r Patho logis t. End of Repor t Techn ical servi gennaro provi ded by [facility], [facility], d/b/a PathG concepción, [address] , [place] [address] Wilbert Griffith MD, Labor atory Direc tor. Case revie wed and diagn osis rende red at [facility] Patho logis ts, [facility], d/b/a Path concepción, [address] , [place] [address] Wilbert Griffith MD, Labor atory Direc tor. CONFI DENTI AL Not Available [facility] hospital -[facility] ([facility]) [address], [place], [address], 03/16/2020 15:32:41 11/12/19 21 11/11/2020 rosalina da angelique i DNA, vagin al darnell krusei by RT-PCR Negati ve Swab- 1 Cervi ga Not Available [facility] (Lab) [address] [facility] [address] [facility], [place], [address], 11/27/2020 11:03:56 11/12/19 21 11/11/2020 rosalina da angelique i DNA, vagin al darnell krusei by RT-PCR Negati ve Swab- 1 Cervi ga Not Available [facility] (Lab) [address], [place], [address], 11/27/2020 11:03:54 11/12/19 21 11/11/2020 rosalina da angelique i DNA, vagin al darnell krusei by RT-PCR Negati ve Swab- 1 Cervi ga Not Available [facility] (Lab) [address] [place], [address], 11/27/2020 11:02:51 11/12/19 21 11/11/2020 rosalina da angelique i DNA, vagin al darnell krusei by RT-PCR Negati ve Swab- 1 Cervi ga Not Available [facility] (Lab) [address] [place], [address], 11/27/2020 11:02:49 11/12/19 21 11/11/2020 rosalina da angelique i DNA, vagin al darnell krusei by RT-PCR Negati ve Swab- 1 Cervi ga Not Available [facility] (Lab) [address], [place], [address], 11/27/2020 11:02:48 11/12/19 21 11/11/2020 mobil uncus , DNA, vagin al nm bkr mobiluncus mulieris and mobiluncus curtisii by RT-PCR Negati ve Swab- 1 Cervi ga *Swab - 1 124- Mobil uncus mulie ris and M. curti sii by Real- Time PCR Date Added : 11/23 Not Available [facility] (Lab) [address], [place], [address], 11/27/2020 11:03:56 11/12/19 21 11/11/2020 STI panel nm bkr mycoplasma genitalium by RT-PCR Negati ve Swab- 1 Cervi ga *Swab - 1 129- Mycop lasma genit alium by Real- Time PCR (Refl ex to Azith neil in and Fluor oquin olone Resis tance ) Date Added : 11/23 Not Available [facility] (Lab) [address], [place], [address], 11/27/2020 11:03:57 11/12/19 21 11/11/2020 STI panel nm bkr mycoplasma hominis by RT-PCR Positi ve abnormal Swab- 1 Cervi ga *Swab - 1 130- Mycop lasma homin is by Real- Time PCR Date Added : 11/23 Not Available [facility] (Lab) [address], [place], [address], 11/27/2020 11:03:57 11/12/19 21 11/11/2020 STI panel nm bkr ureaplasma urealyticum by RT-PCR Negati ve Swab- 1 Cervi ga *Swab - 1 320- Ureap lasma ureal yticu m by Real- Time PCR (Refl ex to Fluor oquin olone Resis tance ) Date Added : 11/23 Not Available [facility] (Lab) [address] [place], [address], 11/27/2020 11:03:57 11/12/19 21 11/11/2020 bacte rial vagin osis DNA, PCR, vagin al fluid gardnerella vaginalis PCR Positi ve abnormal Swab- 1 Cervi ga *Swab - 1 132- Gardn erell a vagin ashleigh by Real- Time PCR Date Added : 11/23 Not Available [facility] (Lab) [address] [place], [address], 11/27/2020 11:03:57 11/12/19 21 11/11/2020 bacte rial vagin osis DNA, PCR, vagin al fluid atopobium vaginae PCR Positi ve abnormal Swab- 1 Cervi ga *Swab - 1 142- Atopo bium vagin ae by Real- Time PCR Date Added : 11/23 Not Available [facility] (Lab) [address], [place], [address], 11/27/2020 11:03:57 11/12/19 21 11/11/2020 bacte rial vagin osis DNA, PCR, vagin al fluid bacterial vaginosis associated bacteria 2 (bvab2) Positi ve abnormal Swab- 1 Cervi ga *Swab - 1 164- Bacte rial Vagin osis Assoc iated Bacte rium 2 (BVAB 2) by Real- Time PCR Date Added : 11/23 Not Available [facility] (Lab) [address] [place], [address], 11/27/2020 11:03:57 11/12/19 21 11/11/2020 bacte rial vagin osis DNA, PCR, vagin al fluid megasphaera species (type 1 and type 2) PCR Positi ve (Type1 , Type2) abnormal Swab- 1 Cervi ga Type1 :Posi tive Type2 :Posi tive. *Swab - 1 165- Megas phaer a speci es (Type 1 and Type 2) by Real- Time PCR Date Added : 11/23 Not Available [facility] (Lab) [address], [place], [address], 11/27/2020 11:03:57 11/12/19 21 11/11/2020 bacte rial vagin osis DNA, PCR, vagin al fluid lactobacillu s (bvpanel) PCR See Commen t Swab- 1 Cervi ga L.cri spatu s: Negat cedric L.summer senii : Negat cedric L.gas seri : Negat cedric L.ine rs : Posit cedric. Not Available [facility] (Lab) [address], [place], [address], 11/27/2020 11:03:57 11/12/19 21 11/11/2020 rosalina da sp DNA, vagin al darnell albicans PCR Positi ve abnormal Swab- 1 Cervi ga *Swab - 1 551- Rosalina da albic ans by Real- Time PCR Date Added : 11/23 Not Available [facility] (Lab) [address], [place], [address], 11/27/2020 11:03:57 11/12/19 21 11/11/2020 rosalina da sp DNA, vagin al darnell tropicalis PCR Negati ve Swab- 1 Cervi ga *Swab - 1 557- Rosalina da tropi calis by Real- Time PCR Date Added : 11/23 Not Available [facility] (Lab) [address], [place], [address], 11/27/2020 11:03:57 11/12/19 21 11/11/2020 rosalina da sp DNA, vagin al darnell parapsilosis PCR Negati ve Swab- 1 Cervi ga *Swab - 1 558- Rosalina da parap madeleine is by Real- Time PCR Date Added : 11/23 Not Available [facility] (Lab) [address], [place], [address], 11/27/2020 11:03:57 11/12/19 21 11/11/2020 rosalina da sp DNA, vagin al darnell glabrata PCR Negati ve Swab- 1 Cervi ga *Swab - 1 559- Rosalina da glabr cherry by Real- Time PCR Date Added : 11/23 Not Available [facility] (Lab) [address], [place], [address], 11/27/2020 11:03:57 Result Notes None recorded. Problems Name Problem SNOMED Code Status Onset Date Resolution Date Notes Provider Name and Address Organization Details Recorded Time Pain in pelvis 94786255 Completed 201903/15/2020 [facility] 1 15:24:58 Cyst of ovary 62037847 Active 2019 Arthur Real MD [address], [place], [address], [facility] 0 14:28:43 Pain in pelvis 79142056 Completed 201911/28/2020 Beliamoody Braxton [facility] 1 15:24:58 Endometr iosis (clinica l) 701675617 Active 2019 Arthur Real MD [address], [place], [address], [facility] 0 14:30:37 Contrace ption care manageme nt Completed 201911/28/2020 Encounte r for contrace ptive manageme nt, unspecif ied;Yair rded Elsewher e: No Locat ion: [facility] S ource: EHR Junior Account Executive дмитрий: N Practi ce ID: 0001 Charles lable Time: 01:00:00 PM Beliamoody Braxton [facility] 1 15:25:02 Pregnanc y test negative 035326188 Completed 201911/28/2020 Encounte r for pregnanc y test, result negative ;Recorde d Elsewher e: No Locat ion: [facility] S ource: EHR Junior Account Executive дмитрий: N Richardti ce ID: 0001 Charles lable Time: 01:00:00 PM Belia badillo [facility] 15:24:53 Pelvic and perineal pain 777895219 Completed 201911/28/2020 Pelvic pain;Rec orded Elsewher e: No Locat ion: Sly chun [facility] S ource: EHR Junior Account Executive дмитрий: N Richardti ce ID: 0001 Charles lable Time: 01:00:00 PM Belia badillo [facility] 15:24:55 Problem Notes None recorded. Procedures Surgical History Date Name Laterality Status Provider Name and Address Organization Details Recorded Time 03/15/20 20 Date of Last Pap Smear completed Thalia [facility] 11/17/2020 10:16:27 09/19/19 18 Colposcopy completed Thalia [facility] 11/17/2020 11:01:55 06/06/20 17 Laparoscopy completed [facility] 11/17/2020 11:04:17 11/24/19 17 Laparoscopy completed [facility] 11/17/2020 11:05:40 11/24/19 17 [facility] 11/17/2020 11:39:24 10/07/19 16 Laparoscopy completed Thalia [facility] 11/17/2020 11:04:49 10/07/19 16 Colposcopy completed Thaliachloe Jewell [facility] 11/17/2020 11:39:38 06/25/20 14 [facility] 11/17/2020 11:39:33 10/19/19 12 Laparoscopy completed [facility] 11/17/2020 11:06:45 Imaging Results None recorded. Procedure Notes None recorded. Medical Equipment None Reported. Allergies Allergen ID Allergen Name Allergen Category Reaction Reaction Severity Criticality Documentation Date Start Date Code Code System Note Provider Name and Address Organization Details Recorded Time 1241 azithromy taylor medicatio n Not available Not available Not available 03/15/2020 39799 RxNorm Belia Braxton [facility] 0 13:59:51 Medications Name Sig Start Date Stop Date Status Note LastModified by Organization Details LastModified Time clindamyc in HCl 300 mg capsule TAKE 1 CAPSULE EVERY 12 HOURS BY ORAL ROUTE FOR 7 DAYS. 01/04 completed Not Available Not Available Not Available fluconazo le 150 mg tablet TAKE 1 TABLET BY ORAL ROUTE FOR 1 DAY. 01/04 completed Not Available Not Available Not Available promethaz ine 12.5 mg tablet active Not Available Not Available No t Available Zoloft 20 mg/mL oral concentra te take 2.5 millilit er by oral route every day and mix with 4 oz. (1/2 cup) of water, foster edwin, lemon/li me soda, lemonade or orange juice ONLY for the 2 weeks before the onset of menses 11/11 completed Prescrib ed Sameera e: Yes Loca tion: [facility] M odify By: [email or web address] Encounte r DateTime : 10/13/19 01:00:00 PM Not Available Not Available Not Available Metrogel Vaginal 0.75 % (37.5 mg/5 gram) Insert 1 applicat orful every day by vaginal route. 11/11 completed Not Available Not Available Not Available sertralin e 25 mg tablet active Not Available Not Available Not Available levofloxa taylor 500 mg tablet TAKE 1 TABLET EVERY 24 HOURS BY ORAL ROUTE FOR 7 DAYS. 01/04 completed Not Available Not Available Not Available sertralin e 50 mg tablet active Not Available Not Available Not Available active Not Available Not Avai lable Not Available Vitals Date Recorded Body height Body mass index (BMI) Body weight Systolic And Diastolic Provider Name and Address Organization Details Last Updated DateTime 11/11/2020 160.02 cm 38.3 kg/m2 27884.95 g 121/82 mm[Hg] Thalia Jewell [facility] 11/11/2020 15:50:17 Date Recorded Body height Body mass index (BMI) Body weight Systolic And Diastolic Provider Name and Address Organization Details Last Updated DateTime 11/28/2020 160.02 cm 39 kg/m2 17029.32 g 112/72 mm[Hg] Belia [facility] 11/28/2020 15:24:47 Date Recorded Body height Provider Name an d Address Organization Details Last Updated DateTime 01/05/2021 160.02 cm Mey Valente [facility] 01/04/2021 15:56:49 Date Recorded Body height Body mass index (BMI) Body weight Systolic And Diastolic Provider Name and Address Organization Details Last Updated DateTime 03/15/2020 160.02 cm 34 kg/m2 57268.74 g 124/77 mm[Hg] Belia [facility] 03/15/2020 13:59:42 Social History Question Answer Notes LastModified by Organizat ion Details LastModified Time Tobacco Smoking Status Former Smoker Thalia badillo, [facility] 11/11/2020 15:50:53 Do You Have An Advance Directive? No [email or web address] Information n ot available 11/11/2020 Are You Blind Or Do You Have Difficulty Seeing? No [email or web address] Information n ot available 11/11/2020 In The 14 Days Before Symptom Onset, Have You Had Close Contact With A Laboratory-confirm ed COVID-19 While That Case Was Ill? No [email or web address] Information n ot available 11/11/2020 In The 14 Days Before Symptom Onset, Have You Had Close Contact With A Person Who Is Under Investigation For COVID-19 While That Person Was Ill? No [email or web address] Information not available 11/11/2020 Have You Been To An Area Known To Be High Risk For COVID-19? No [email or web address] Information not available 11/11/2020 Are You Deaf Or Do You Have Serious Difficulty Hearing? No [email or web address] Information not available 11/11/2020 What Type Of Diet Are You Following? REGULAR [email or web address] Information n ot available 11/11/2020 What Is The Highest Grade Or Level Of School You Have Completed Or The Highest Degree You Have Received? [id number] Information not available 11/11/2020 Are There Any Guns Present In Your Home? Yes [email or web address] Information not available 11/11/2020 Do You Use Protection During Sex? No [email or web address] Information not available 11/11/2020 Do You Use Your Seat Belt Or Car Seat Routinely? Yes [email or web address] Information not available 11/11/2020 Do You Have Smoke And Carbon Monoxide Detectors In Your Home? Yes [email or web address] Information not available 11/11/2020 How Much Tobacco Do You Smoke? No [email or web address] Information not available 11/11/2020 Do You Use Sunscreen Routinely? Yes [email or web address] Information not available 11/11/2020 Have You Used IV Drugs? No [email or web address] Information not available 11/11/2020 Sex: Unknown Functional Status Question Answer Note LastModified by Organizat ion Details LastModified Time Do you use any illicit or recreational drugs? No [email or web address] Information not available 11/11/2020 What is your level of alcohol consumption? Occasional [email or web address] Information not available 11/11/2020 Are you able to walk? 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 Moderate [email or web address] Information not available 11/11/2020 Mental Status Question Answer Note LastModified by Organization D etails LastModified Time Do you feel stressed (tense, restless, nervous, or anxious, or unable to sleep at night)? [id number] [email or web address] Information not available 11/11/2020 Family History Relationship Description Onset Age of this Age Resolved Age Notes LastModified by Organization Details LastModified Time Mother Asthma Not available 03/15/2020 14:00:43 Mother Seizure disorder [email or web address] Not available 2020 15:25:16 Mother Mental disorder [email or web address] Not available 2019 14:07:15 Father Hypertensive disorder [email or web address] Not available 2019 14:07:29 Father Hyperlipidem ia phewitt Not available 2020 15:25:16 Paternal Grandmother Hypertensive disorder [email or web address] Not available 2019 14:08:04 Paternal Grandmother Hyperlipidem ia phewitt Not available 2020 15:25:16 Paternal Grandfather Hypertensive disorder [email or web address] Not available 2019 14:08:15 Maternal Grandfather Diabetes mellitus [email or web address] Not available 2019 14:08:46 Medical History Condition Response Anxiety Disorder Y History of abnormal pap Y Other Y Anemia Y Endometriosis Y Asthma Y Gynecological History Statement/Question Response Abnormal Pap Y Date of LMP 11/05/2020 On BCP's at Conception? N N Was last menstrual period normal Y STIs/STDs N HPV Vaccine N Colposcopy 09/19/2017 Duration of Flow (days) 5 Current Control Method Age at First Child 27 Frequency of Cycle (Q days) 30 Sexually Active? Y BCPs Age of first menstrual cycle 14 Date of Last Pap Smear 03/15/2020 Sexual Problems? N LMP Approximate N 09/11/2017 Obstetrics History GPAL:G 2 P 1 0 1 1 Type Value Full Term 1 Spontaneous 1 Living 1 Total 2 Past Encounters Encounter ID Performer Location Encounter Start Date Encounter Closed Date Diagnosis/Indication Diagnosis SNOMED-CT Code Diagnosis ICD10 Code Diagnosis Note [id number] Arthur Real MD [place] [address] [address] 03/15/2020 13:53:37 03/15/2020 15:30:15 Gynecologic examination 27852824 Z01.419 This patient is here for her annual exam. A thorough history was taken. A physical exam was performed. Age appropriat e routine health screening was ordered, performed, and discussed. Recommende d testing was ordered. She was asked to follow up in one year. She will be informed of any test results. Mammogram - [na ] Colonoscop y - [na] Bone Density - [na ] Cholestero l - [today ] Pap - today Recurrent BV - to treat for 6 months [id number] Ginny Rapp CNM [place] [address] [address] 11/11/2020 15:21:53 11/11/2020 16:30:49 Vaginitis 29137070 N76.0 await culture Endometrio sis of pelvis 13621840 N80.[address] real [id number] Arthur Real MD [place] [address] [address] 11/28/2020 15:11:27 11/28/2020 16:26:12 Pain in pelvis 32129787 R10.2 Endometrio sis of pelvis 16022242 N80.3 this patient is a 30-year-ol d female presents for severe pelvic pain she has has longjoannei ng diagnosis of endometrio sis. She has pain with intercours e. She has severe sharp bilateral pelvic pain. She is unable to tolerate medical therapy. 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 We talked about the use of Lupron and orlisa . patient is considerin g hysterecto my. We also talked about diagnostic laparoscop y and adjunct treatment. Talked about the use Lupron determine her reaction to oophorecto my. The patient elected to proceed with diagnostic laparoscop y. She is unable to use hormon al contracept ion is treatment. She is known to have endometrio sis. She has biopsy-pro kaya endometrio sis. Additional precaution jossy measures were taken to minimize potential exposure to the Covid-19 virus during this patient s visit, including available hand technical sales representatives upon arrive, temperatur e check and being asked a series of screening questions. All staff wore face coverings during this encounter, as well as provided additional cleaning and sanitizing of all surfaces, including countertop s, pens, chairs, door handles, light switches, etc, prior to and following the patient s visit. Health Concerns Section Related Observation LastModified by Organization Detai ls LastModified Time None Recorded Concern Status LastModified by Organization Details LastModified Time None Recorded Advance Directives Directive N: Payers Insurance Date Sequence Insurance Name Policy Number Policy Perez Covered Member ID Perez Member ID Guarantor Name 11/11/2020 1 [facility] - DOS PRIOR TO 2021 (MEDICAID REPLACEMENT - HMO) Evelinevimal Adendavid [id number] Eveline Ramirez 01/02/2021 1 [facility] [id number] Eveline Ramirez [id number] Eveline Ramirez Notes Date Note Type Note Provider Name and Address Organization Details Recorded Time 03/15/2020 text/html Annual GYNReport ed bypatient.History:ch ronic pelvic pain Menstrual cycle:Severe dysmenorrhea; regular Urinary symptoms:No hematuria; No incontinence Vulva:No genital lesion Vagina:Normal vaginal discharge Breast:No breast pain; No breast lump; No nipple discharge Sexual complaints:No sexual complaints; No pain during intercourse; Normal libido Menopausal Symptoms:No menopausal symptoms; Normal vaginal lubrication Psychological symptoms:No depression;Anxiety; chronic anxiety Preventive measures:Encourage self breast examination; Encourage regular exercise; Followed with yearly pap smears Arthur Real MD [address], [place], [address], [facility] 03/15/2020 14:44:19 11/11/2020 text/html Vaginal/Vulvar ProblemReported bypatient.Notes:hx bv has metrogel at home, can usally tell by smell but since she had covid she cant smell, would like a test, also thinks endometriosis is back again and would like to talk to dr farhan Rapp, [facility] [address], [place], [address], [facility] 11/11/2020 16:02:50 11/28/2020 text/html this patient is a 30-year-old female presents for severe pelvic pain she has has longstanding diagnosis of endometriosis. She has pain with intercourse. She has severe sharp bilateral pelvic pain. She is unable to tolerate medical therapy. 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 We talked about the use of Lupron and orlisa. patient is considering hysterectomy. We also talked about diagnostic laparoscopy and adjunct treatment. Talked about the use Lupron determine her reaction to oophorectomy. The patient elected to proceed with diagnostic laparoscopy. She is unable to use hormonal contraception is treatment. She is known to have endometriosis. She has biopsy-proven endometriosis. Arthur Real MD [address], [place], [address], [place] [facility] 11/28/2020 16:25:19 OBGyn Episode Ob Episode Information Episode Created Date Number of Fetuses Patient Bloodtype Patient rh Status Prepregnancy Weight lbs Domestic Partner Domestic Partner Phone Father Name Director Financial Services Status 11/18/19 21 1 CLOSED Fetus Data First Name Last Name Admitted to NICU Weight (g) Sex Living Outcome Pediatric Complications Fetus ID Race Codes Race Delivery Type 3572.03 7 M Full Term [id number] Primary Ottoniel Calculation Initial Ottoniel Date Initial Exam Date Initial Exam Provider Initial Ultrasound Date Last Menstrual Period Date Ultra Sound Weeks Gestation 0 Eighteen To Twenty Week Ottoniel Update Ultra Sound Date Fundal Height At Umbil Quickening Date Ultra Sound Latest Weeks Gestation Final Ottoniel Confirmed By Final Ottoniel Confirmed Date Final Ottoniel Date Ultra Sound Latest Days Gestation 0 0 Menstrual History Last Menstrual Date Menses Monthly On Bcp Conception Prior Menses Frequency Hcg Plus Date Menarche Onset Age Delivery Information Delivery Date Delivery Type Labor Anesthesia Weeks Gestation Incision Type Labor Labor Length Hrs Delivered By Post Complications Tubal Sterilization Discharge Date Comments Discharge Information Feeding Method Contraceptive Method Maternal HG B and HCT Levels Ob Episode Information Episode Created Date Number of Fetuses Patient Bloodtype Patient rh Status Prepregnancy Weight lbs Domestic Partner Domestic Partner Phone Father Name Director Financial Services Status 11/18/19 21 1 CLOSED Fetus Data First Name Last Name Admitted to NICU Weight (g) Sex Living Outcome Pediatric Complications Fetus ID Race Codes Race Delivery Type , Spontane ous [id number] Ottoniel Calculation Initial Ottoniel Date Initial Exam Date Initial Exam Provider Initial Ultrasound Date Last Menstrual Period Date Ultra Sound Weeks Gestation 0 Eighteen To Twenty Week Ottoniel Update Ultra Sound Date Fundal Height At Umbil Quickening Date Ultra Sound Latest Weeks Gestation Final Ottoniel Confirmed By Final Ottoniel Confirmed Date Final Ottoniel Date Ultra Sound Latest Days Gestation 0 0 Menstrual History Last Menstrual Date Menses Monthly On Bcp Conception Prior Menses Frequency Hcg Plus Date Menarche Onset Age Delivery Information Delivery Date Delivery Type Labor Anesthesia Weeks Gestation Incision Type Labor Labor Length Hrs Delivered By Post Complications Tubal Sterilization Discharge Date Comments Discharge Information Feeding Method Contraceptive Method Maternal HG B and HCT Levels
--- OUTSIDE RECORDS SUMMARY | 2025-03-15 13:44 | XMS_ITS | Continuity of Care Document ---
Author Organization [facility] Address [address] [place] [address] Phone Care Team Providers Care Cook Helper Meat Name Role Phone Franklin Zimmerman DPM Unavailable [...] Providers Copied on Encounter [facility], [address], [place], [address], [place] tel:[phone] [facility] No Information [address] El[address], [place], [place], [id number] , [place]. tel: [phone] [facility], [address], [place], [address], [place] tel:[phone] [facility] S/P hardware removal [address] Elsie jarrett [address], [place], [place], [id number] , [place]. tel: [phone] Referring Provider: Michael Corbin, [address], [place], [address]. tel:[phone] [facility], [address], [place], [address], [place] tel:[phone] [facility] S/P hardware removal [address], [place], [place], [id number] , [place]. tel:[phone] Referring Provider: Michael Corbin, [address], [place], [address]. tel:[phone] [facility], [address], [place], [address], [place] tel:[phone] [facility] Painful orthopaedic hardwareOther synovitis and tenosynovitis, left ankle and foot [address], [place], [place], [id number] , [place]. tel: [phone] [facility], [address], [place], [address], [place] tel:[phone] [facility] No Information [address], [place], [place], [id number] , [place]. tel: [phone] [facility], [address], [place], [address], [place] tel:[phone] [facility] Painful orthopaedic hardwareOther synovitis and tenosynovitis, left ankle and foot [address], [place], [place], [address] , [place]. tel: [phone] OFFICE/OUTPAT IENT VISIT NEW [facility], [address], [place], [address], [place] tel:[phone] [facility] Retained orthopedic hardware 4 Jeremias Boles [address], [place], [place], [address] . tel: [phone] Referring Provider: Michael Corbin, [address], [place], [address]. tel:[phone] Family History Family Member Type Diagnosis Age At Onset No Information Payers Payer name Insurance type Covered alliance party ID Authoriza tijailyn(s) Blue Access Choice PPO E2 OT [id number] Social History Type Description Quantity Date Captured [...]
[2025-03-15 13:46] VITALS: BP 134/64; PULSE 84; RESP 20; TEMP 36.9; O2SAT 100
--- NOTE | 2025-03-15 13:47 | ED.URI ---
HPI - URI/Sore Throat General Chief Complaint: Upper Respiratory Infection Stated Complaint: Sinus Problem Time Seen by Provider: 03/15/25 13:55 Source: patient, RN notes reviewed and old records reviewed Mode of arrival: ambulatory Limitations: no limitations History of Present Illness HPI Narrative: 34-year-old female presents to the [facility] with complaints of sore throat, bilateral ear pain, sinus congestion for 3 days. Has taken Sudafed, used Afrin and taken Zyrtec. Denies any fevers. Denies cough, chest pain, shortness of breath Related Data Home Medications ?Medication ?Instructions ?Recorded ?Confirmed ?Last Taken ?Type No Home Medications 01/03/24 06/12/24 Unknown History Allergies Allergy/AdvReac Type Severity Reaction Status Date / Time azithromycin Allergy Unknown Hives Verified 03/15/25 13:56 erythromycin base Allergy Unknown Hives Verified 03/15/25 13:56 SURGICAL GLUE Allergy Other Uncoded 03/15/25 13:56 Review of Systems Review of Systems: All systems reviewed & are unremarkable except as noted in HPI and below Constitutional: Constitutional: Reports no additional constitutional complaints ENT: Reports as per HPI Cardiovascular: Cardiovascular: Reports no additional cardiovascular complaints, Denies chest pain and Denies dyspnea Respiratory: Respiratory: Reports no additional respiratory complaints, Denies chest congestion, Denies cough and Denies dyspnea Musculoskeletal: Musculoskeletal: Reports no additional musculoskeletal complaints Integumentary/Breasts: Skin/Breast: Reports system reviewed and no additional complaints, except as docu PMFSH Past Medical History Medical History Gastroenteritis Postoperative pain Close exposure to COVID-19 virus Endometriosis determined by laparoscopy ADHD Chlamydia Depression Bipolar disorder Panic disorder 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 Hydronephrosis Anxiety Anemia Surgical History Surgical History H/O dilation and curettage H/O: hysterectomy Family History Family History Father Family history of elevated blood lipids Patient's father is in good health Mother Hypertension Sibling Patient's brother is in good health Social History Social History Social History: Caffeine- Daily Smoking status: Former smoker Tobacco type: cigarettes Second hand tobacco smoke exposure: Yes Smoking end date: 09/09/12 Additional smoking assessment comments: ONLY SMOKED A COUPLE MONTHS Alcohol intake: current Alcohol use details: RARE Substance use: current Substance use type: marijuana Lack of Transportation: No Lack of Food: Never True Current Housing: I Have Housing Concerned About Future Housing: No Difficulty Paying Gas/Electric Bills: No Difficulty Paying for Meds: No Currently Unemployed: No Education: High School Diploma/GED Difficulty w/ Childcare or Family Care: No Living arrangements: with family Spiritual care concerns: No Comments At the time of my signature, I reviewed and agree with the nursing past medical, surgical, social, and family history. There is no relevant family history pertinent to the patient complaint. Exam Const: General: cooperative, healthy appearing, comfortable, no acute distress, well developed, alert and well nourished Nutritional Appearance: well nourished Orientation/consciousness: patient oriented x3 Limitations: no limitations HENMT: Head: normal to inspection Ears: hearing grossly normal bilaterally, external ears normal, TM's normal bilaterally, EAC's normal, mastoids normal and no periauricular adenopathy Face/Nose/Sinus: Normal external nose present and Nasal discharge present clear bilateral Mouth: Yes Normal oral and palatal mucosa present, Yes lip normal, Yes tongue normal and Yes moist mucous membranes Throat: posterior oropharynx normal, uvula midline and no uvular edema Eyes: General: appearance normal, both eyes and all related structures Alignment and Position: alignment normal Neck: Neck: normal visual inspection, full ROM, no lymphadenopathy and no meningeal signs Chest: Chest palpation & inspection: normal inspection of the chest Resp: Effort & Inspection: normal respiratory effort and able to speak in complete sentences Auscultation: clear to auscultation bilaterally, no crackles, no rales, no rhonchi and no wheezes Cardio: Rate: regular rate Skin: General skin exam: normal color and no rashes or lesions noted Neuro: General: patient oriented x3, gait normal, moves all extremities and no meningeal signs Cognition (Neuro): normal cognition Speech: normal speech Gait exam (Neuro): Normal gait present Extrem: General: normal to inspection, full ROM, capillary refill normal and normal gait Psych: Appearance: grossly normal and well kempt Mental Status: mental status grossly normal Speech and movement: Normal speech and movement present and Clear speech present Affect: normal affect Attitude: cooperative Course Course Level of Care: Express Care Visit Vital Signs Vital signs: Vital Signs Temperature 98.4 F 03/15/25 13:46 Pulse Rate 84 03/15/25 13:46 Respiratory Rate 20 03/15/25 13:46 Blood Pressure 134/64 03/15/25 13:46 Pulse Oximetry 100 03/15/25 13:46 Oxygen Delivery Room Air 03/15/25 13:46 Temperature 98.4 F 03/15/25 13:46 Pulse Rate 84 03/15/25 13:46 Respiratory Rate 20 03/15/25 13:46 Blood Pressure 134/64 03/15/25 13:46 Pulse Oximetry 100 03/15/25 13:46 Oxygen Delivery Room Air 03/15/25 13:46 Reviewed MDM - URI/Sore Throat MDM Narrative Medical decision making narrative: patient sitting in exam room patient is nontoxic, vitals are stable. Patient presents with 3 day history of URI symptoms. Flu, COVID, strep were negative in clinic, will send for strep culture. Patient appropriate for outpatient treatment of viral URI Discharge instructions reviewed with patient, as well as provided in writing per nursing staff. The instructions also include specific and strict return/GO TO THE ER as well as f/u information. All questions have been answered, and the patient deny any further questions with discharge and discharge plan. Some parts of this dictation were generated by voice recognition software and may contain typographical and/or grammatical inaccuracies. Differential Diagnosis Differential diagnosis: Likely upper respiratory infection, otitis media, sinusitis, viral infection, bronchitis, influenza and pharyngitis Lab Data Labs: Lab Results 03/15/25 03/15/25 Range/Units 14:09 14:10 POC Influenza A Ag Negative (Negative) POC Influenza B Ag Negative (Negative) POC SARS CoV-2 Ag Negative (Negative) POC Grp A Strep Screen Negative (Negative) Reviewed Critical Care Time Critical Care Time Critical Care Time: No Discharge Plan Discharge Clinical Impression: Viral infection Upper respiratory infection Qualifiers: URI type: unspecified viral URI Qualified Code(s): J06.9 - Acute upper respiratory infection, unspecified Sinusitis Qualifiers: Sinusitis location: pansinusitis Recurrence: not specified as recurrent Patient Disposition: Home Condition: Stable Instructions: Antibiotic Form, Upper Respiratory Infection (DC) Additional Instructions: Your rapid strep swab was negative today at [facility]. A throat culture will be sent to the laboratory for further testing. If the test is positive, you will receive a phone call within 48 hours and an appropriate antibiotic will be initiated at that time. Your rapid COVID test were negative Your rapid flu test was negative Your symptoms are likely due to a viral illness, which is not treated with antibiotics. Typically viral infections last 7-10 days, can linger for couple of weeks. It is very important to treat your symptoms. Drink plenty of water, Gatorade, Pedialyte, ice pops or Jell-O. -Alternate Tylenol and Motrin per package directions for fever or pain. You can alternate every 4 hours -Antihistamine medication such as Zyrtec/Claritin/Asha during the day can help improve symptoms. -doing daily nasal irrigations can help relieve pressure your sinuses. Things like a Neti pot -Use Flonase twice a day for 5 days then daily to help reduce the inflammation and dry up your sinuses. -You can also use Mucinex. Be sure to drink plenty of water with this medication at least 8 ounces with every dose and it is important to drink 8 to 10 glasses of water per day. Water is a natural decongestant -Eat and drink things that are easy to swallow, like tea or soup, or popsicles. -Oral rinses such as: Salt water gargles and/or may use topical anesthetic (eg. Chloraseptic spray) or lozenges to relieve dryness or throat pain). -Frequent hand washing or hand damage adjuster is one of the best ways to prevent spread of infection. -Using a vaporizer or humidifier at night will also help thin secretions and help with coughing up phlegm. -Follow up with primary care provider in 7-10 days if condition is not improving - For new or worsening symptoms go directly to the nearest ER Patient Language: Malay Prescriptions: No Action No Home Medications Follow-up/Referrals: Michael Yuan DO [Primary Care Provider] - 2 Weeks ( [facility] follow-up) Stand Alone Forms: Work/School Release IP Time of Disposition: 14:06
--- OUTSIDE RECORDS SUMMARY | 2025-03-15 13:48 | XMS_ITS | Continuity of Care Document ---
Author Organization [facility] Address [address] [place] [address] Phone Care Team Providers Care Ux Research Associate Name Role Phone Franklin Zimmerman DPM Unavailable [...] Providers Copied on Encounter [facility], [address], [place], [address], [place] tel:[phone] [facility] No Information [address] Elsie jar[address], [place], [place], [id number] , [place]. tel: [phone] [facility], [address], [place], [address], [place] tel:[phone] [facility] S/P hardware removal [address] Elsie jarrett [address], [place], [place], [id number] , [place]. tel: [phone] Referring Provider: Michael Corbin, [address], [place], [address]. tel:[phone] [facility], [address], [place], [address], [place] tel:[phone] [facility] S/P hardware removal [address], [place], [place], [id number] , [place]. tel:[phone] Referring Provider: Michael Corbin, [address], [place], [address]. tel:[phone] [facility], [address], [place], [address], [place] tel:[phone] [facility] [place] Painful orthopaedic hardwareOther synovitis and tenosynovitis, left ankle and foot [address], [place], [place], [id number] , [place]. tel: [phone] [facility], [address], [place], [address], [place] tel:[phone] [facility] No Information [address], [place], [place], [id number] , [place]. tel: [phone] [facility], [address], [place], [address], [place] tel:[phone] [facility] Painful orthopaedic hardwareOther synovitis and tenosynovitis, left ankle and foot 4 [address], [place], [place], [id number] , [place]. tel: [phone] OFFICE/OUTPAT IENT VISIT NEW [facility], [address], [place], [address], [place] tel:[phone] [facility] Retained orthopedic hardware 4 Jeremias Bolse [address], [place], [place], [address] . tel: [phone] Referring Provider: Michael Corbin, [address], [place], [address]. tel:[phone] Family History Family Member Type Diagnosis Age At Onset No Information Payers Payer name Insurance type Covered libertarian ID Authoriza tijailyn(s) Blue Access Choice PPO E2 OT [id number] Social History Type Description Quantity Date Captured [...]
[2025-03-15 14:10] LABS: EDCOVIDSCREEN Negative (Negative); EDINFLUASCREEN Negative (Negative); EDINFLUBSCREEN Negative (Negative)
[2025-03-15 14:12] LABS: EDSTREPNEGPOS1 Negative (Negative)
== END 2025-03-15 14:12 | disposition home or self-care (01) ==
PROVIDERS: Emergency Provider Nurse Practitioner; PCP Internal Medicine
DX: B34.9 Viral infection, unspecified (principal); J06.9 Acute upper respiratory infection, unspecified; J32.4 Chronic pansinusitis; Z20.822 Contact with and (suspected) exposure to COVID-19; Z87.891 Personal history of nicotine dependence; N80.9 Endometriosis, unspecified
CPT/HCPCS: 87081; 87426; 87804; 87880; 99213; G0463

== ENCOUNTER 2025-05-03 08:00 | Outpatient (CLI) | payer OTHER, SELFPAY ==
--- NOTE | ~2025-05-03 | MMUS_ITS ---
EXAMINATION: MM diagnostic diana LT w raymond, US breast LT limited INDICATION: 34-year old female; Nonfocal LEFT Breast pain between 3:00 to 6:00 location. Pain has since improved. COMPARISON: Baseline TECHNIQUE: Digital Breast Tomosynthesis CC, MLO and ML views of the Left breast were obtained with computer-aided detection to assist in interpretation of the study. MAMMOGRAM FINDINGS: The breasts are almost entirely fatty. There are no suspicious masses, calcifications, architectural distortion or other abnormalities in Left breast. No mammographic abnormality correlates to the area of breast pain. LEFT BREAST ULTRASOUND FINDINGS: Targeted ultrasound at the area of the patient's pain in the lower outer Left breast reveals reveals no discrete cystic or solid lesions . IMPRESSION: No mammographic evidence of malignancy in the LEFT breast. No mammographic or sonographic abnormality correlates to the area of LEFT pain. RECOMMENDATIONS: 1. Medical management of patient's breast pain. 2. If the patient has high risk factors for developing breast cancers such as, but not limited to dense breasts, positive gene markers, first degree relative with breast cancer which is not tested for Gene markers, or greater than 20% lifetime risk of developing breast cancer, supplemental breast MRI screening (ultrasound if MRI is contraindicated), in addition to annual screening mammography, should be considered and discussed with the patient. BI-RADS 2, BENIGN Reviewed, dictated and finalized at location B. IMPRESSION: No mammographic evidence of malignancy in the LEFT breast. No mammographic or sonographic abnormality correlates to the area of LEFT pain. RECOMMENDATIONS: 1. Medical management of patient's breast pain. 2. If the patient has high risk factors for developing breast cancers such as, but not limited to dense breasts, positive gene markers, first degree relative with breast cancer which is not tested for Gene markers, or greater than 20% li fetime risk of developing breast cancer, supplemental breast MRI screening (ult rasound if MRI is contraindicated), in addition to annual screening mammography , should be considered and discussed with the patient. BI-RADS 2, BENIGN
== END 2025-05-03 08:01 | disposition home or self-care (01) ==
LOC: MICIMG 08:01
PROVIDERS: PCP Internal Medicine; Visit Provider Nurse Practitioner Obstetrics & Gynecology
DX: N64.4 Mastodynia (principal)
CPT/HCPCS: 76642; 77061; 77065; G0279

== ENCOUNTER 2025-05-12 08:20 | Emergency (ER) | payer OTHER, SELFPAY ==
--- OUTSIDE RECORDS SUMMARY | 2024-08-05 04:44 | XMS_ITS | Continuity of Care Document ---
Author Organization [facility] Address [address] [place] [address] Phone Care Team Providers Care Voice Intercept Technician Name Role Phone Franklin Zimmerman DPM Unavailable Unavailab le Allergies, Adverse Reactions, Alerts Substance Reaction Status Criticality azithromycin Active No Information ADHESIVE BANDAGE Active No Informat ion Medications Medication Instructions Dosage Effective Dates (start - stop) Status Comments oxyCODONE 5 mg tablet take 1 tablet by o ral route every 4 - 6 hours as needed 5 MG - Active Procedures Procedure Date POSTOP FOLLOW-UP VISIT POSTOP FOLLOW-UP VISIT ANKLE ARTHROSCOPY/SURGERY Pneuma/vac walk boot pre ots OFFICE/OUTPATIENT VISIT NEW Advance Directives Directive Yes / No Effective Date File Name No Information Encounters Encounter Description Practice Location Reason(s) For Visit Diagnoses Date Provider Providers Copied on Encounter [facility], [address], [place], [address], [place] tel:[phone] [facility] No Information 4 Elsie jarrett [address], [place], [place], [id number] , [place]. tel: [phone] [facility], [address], [place], [address], [place] tel:[phone] [facility] S/P hardware removal [address] Elsie jarrett [address], [place], [place], [id number] , [place]. tel: [phone] Referring Provider: Michael Corbin, [address], [place], [address]. tel:[phone] [facility], [address], [place], [address], [place] tel:[phone] [facility] S/P hardware removal 4 Ferbet Aleksande r. [address], [place], [place], [id number] , [place]. tel:[phone] Referring Provider: Michael Corbin, [address], [place], [address]. tel:[phone] [facility], [address], [place], [address], [place] tel:[phone] [facility] Painful orthopaedic hardwareOther synovitis and tenosynovitis, left ankle and foot 4 Ferbet Aleks[address] r[address], [place], [place], [id number] , [place]. tel: [phone] [facility], [address], [place], [address], [place] tel:[phone] [facility] No Information 4 Ferbet Aleks[address] r. [address], [place], [place], [id number] , [place]. tel: [phone] [facility], [address], [place], [address], [place] tel:[phone] [facility] Painful orthopaedic hardwareOther synovitis and tenosynovitis, left ankle and foot 4 Fer[address] Aleks[address] r[address], [place], [place], [id number] , [place]. tel: [phone] OFFICE/OUTPAT IENT VISIT NEW [facility], [address], [place], [address], [place] tel:[phone] [facility] Retained orthopedic hardware 4 Jeremias Boles [address], [place], [place], [id number] . tel: [phone] Referring Provider: Michael Corbin, [address], [place], [address]. tel:[phone] Family History Family Member Type Diagnosis Age At Onset No Information Payers Payer name Insurance type Covered alliance party ID Authoriza tijailyn(s) [employer] Access Choice PPO [id number] Social History Type Description Quantity Date Captured Comments Alcohol Use Details Unknown Caffeine Use Details Unknown Tobacco Use Status No Information Smoking Status No Information Sex Female Chief Complaint And Reason For Visit No Information Reason For Referral Reason For Referral No Information History Of Present Illness Encounter Date Complaint History Of Prese nt Illness No Information Functional Status Date Functional Assessmen t No Information Instructions Date Instruction Additional Infor mation No Information Assessments Type Assessment Date No Information Patient Care Teams Name Effective Dates (start - stop) Status Members No Information
--- OUTSIDE RECORDS SUMMARY | 2024-08-05 04:44 | XMS_ITS | Continuity of Care Document ---
Author Organization [facility] Address [address] [place] [address] Phone Care Team Providers Care School Business Administrator Name Role Phone Franklin Zimmerman DPM Unavailable [...] Providers Copied on Encounter [facility], [address], [place], [address], [place] tel:[phone] [facility] No Information [address] Elsie jarrett [address], [place], [place], [id number] , [place]. tel: [phone] [facility], [address], [place], [address], [place] tel:[phone] [facility] S/P hardware removal 4 Elsie jarrett [address], [place], [place], [id number] , [place]. tel: [phone] Referring Provider: Michael Corbin, [address], [place], [address]. tel:[phone] [facility], [address], [place], [address], [place] tel:[phone] [facility] S/P hardware removal 4 Ferbet Aleks[address]. [address], [place], [place], [id number] , [place]. tel:[phone] Referring Provider: Michael Corbin, [address], [place], [address]. tel:[phone] [facility], [address], [place], [address], [place] tel:[phone] [facility] [place] Painful orthopaedic hardwareOther synovitis and tenosynovitis, left ankle and foot 4 Fer[address], [place], [place], [id number] , [place]. tel: [phone] [facility], [address], [place], [address], [place] tel:[phone] [facility] No Information [address] Fer[address], [place], [place], [id number] , [place]. tel: [phone] [facility], [address], [place], [address], [place] tel:[phone] [facility] Painful orthopaedic hardwareOther synovitis and tenosynovitis, left ankle and foot 4 [address], [place], [place], [id number] , [place]. tel: [phone] OFFICE/OUTPAT IENT VISIT NEW [facility], [address], [place], [address], [place] tel:[phone] [facility] Retained orthopedic hardware 4 Jeremias Boles [address], [place], [place], [id number] . tel: [phone] Referring Provider: Michael Corbin, [address], [place], [address]. tel:[phone] Family History Family Member Type Diagnosis Age At Onset No Information Payers Payer name Insurance type Covered libertarian ID Authoriza tijailyn(s) [employer] PPO E2 OT [id number] Social History Type Description Quantity Date Captured [...]
[2025-05-12 08:32] VITALS: BP 144/82; PULSE 69; RESP 20; TEMP 37; O2SAT 100
--- OUTSIDE RECORDS SUMMARY | 2025-05-12 08:35 | XMS_ITS | Patient Health Record ---
Author Organization [facility] [employer] Address [address] [place] [address] Care Team Providers Care Non Cdl Driver Name Role Phone GETACHEW PEGUERO Primary Care Provider Shaista Callejas Unavailable [phone] Allergies Allergen (clinical drug ingredient) Drug/Non Drug Allergy documented on EMR Reaction Allergy Type Onset Date Status azithromycin Azithromycin Unknown Drug Allergy A ctive Results Component Value Reference Range Notes UDT Reviewed date:08/26/2024 09:57:53 AM Interpretation: Performing Lab: Notes/Report: THC N 0 - 50 ng/ml Cocaine N 0 - 300 ng/ml Amphetamine N 0 - 1000 ng/ml Buprenorphine (BUP) N 0 - 10 ng/ml Secobarbital (Bar) N 0 - 300 ng/ml Oxazepam (BZO) N 0 - 300 ng/ml 4-rzxujtdmhy-8,5-kwucpxbx-6,3-diphenylpyrrolidine (GIGI P) N 0 - 300 ng/ml Methamphetamine (MET) N 0 - 1000 ng/ml Methylenedioxymethamphetamine (MDMA) N 0 - 500 ng/ml Morphine (MOP 300/[id number]) N 0 - 300 ng/ml Methadone (MTD) N 0 - 300 ng/ml Phencyclidine (PCP) N 0 - 25 ng/ml Nortriptyline (TCA) N 0 - 1000 ng/ml Oxycodone N 0 - 300 ng/ml x N 0 - 300 ng/ml Reason For Referral No Information Medications Medication SIG (Take, Route, Frequency, Duration) Notes Start Date End Date Status Benzonatate 200 MG Capsule TAKE 1 CAPSUL E BY MOUTH THREE TIMES DAILY NEEDED FOR COUGH Oral; Duration: 7 Days Not-Taking Fluconazole 150 MG Tablet Oral; Duration : 7 Days Not-Taking Lisdexamfetamine Dimesylate 40 MG Capsule 1 capsule in the morning Orally Once a day; Duration: 30 days 09/22/2024 Active Vilazodone HCl 20 MG Tablet 1 tablet wit h food Orally Once a day; Duration: 90 days Active Albuterol Sulfate HFA 108 (90 Base) MCG/ACT Aerosol Solution INHALE 2 PUFFS BY MOUTH EVERY 4 HOURS NEEDED FOR RESPIRATORY PROBLEMS Inhalation; Duration: 17 Days Active Social History Tobacco Use: Social History Observation Description Date Details (start date - stop date) Never Smoker NA - NA Sex Assigned At : Social History Observation Description Sex Assigned At Female Social History Miscellaneous: Social Info Question Answer Notes Advance Care Planning Are you your own decision-maker Yes Do you have Power of Treating Engineer for Health or [facility]? No Social History Social Info Question Answer Notes Household: Marital Status: Number of Adults in household: 2 Number of Children in Household: 2 Level of Education: Not Finished College Drug/Alcohol: Social Info Question Answer Notes Drugs Have you used drugs other than those for medical reasons in the past 12 months? No AUDIT-C (Standard) Did you have a drink containing alcohol in the past year? Yes How often did you have six or more drinks on one occasion in the past year? Never (0 point) How many drinks did you have on a typical day when you were drinking in the past year? 1 or 2 drinks (0 point) How often did you have a drink containing alcohol in the past year? Monthly or less (1 point) Tobacco Use: Social Info Question Answer Notes Tobacco Control (Standard) Tobacco use: Nonsmoker Problems Problem Type SNOMED Code ICD Code Onset Dates Problem Status W/U Status Risk Notes Problem Generalized anxiety disorder (01534998) MAXINE (generalized anxiety disorder) (F41.1) Active confirmed Problem Attention deficit hyperactivity disorder (681384548) Attention deficit hyperactivity disorder (ADHD), combined type (F90.2) Active confirmed Problem Binge eating disorder, unspecified severity (F50.819) Active confirmed Vital Signs Heart Rate 74 /min 08/26/2024 Blood pressure diastolic 78 mm Hg 08/26/2024 Weight-kg 105.6 kg 08/26/2024 Blood pressure systolic 120 mm Hg 08/26/2024 Weight 232.8 lbs 08/26/2024 Procedures Procedure Date Ordered Date Performed Result Body Sit e ADHD Testing 08/26/2024 N/A Encounters Encounter Location Date Provider Diagnosis [facility] [address] [place] [address] 08/26/2024 Shaista Emery MAXINE (generalized anxiety disorder) F41.1 ; Attention deficit hyperactivity disorder (ADHD), combined type F90.2 and Binge eating disorder, unspecified severity F50.819 [facility] [employer] [facility] [address] [place] [address] 08/28/2024 Shaista Emery MAXINE (generalized anxiety disorder) F41.1 ; Attention deficit hyperactivity disorder (ADHD), combined type F90.2 and Binge eating disorder, unspecified severity F50.819 [facility] [employer] [address] [place] [address] 09/22/2024 Shaista Emery MAXINE (generalized anxiety disorder) F41.1 ; Attention deficit hyperactivity disorder (ADHD), combined type F90.2 and Binge eating disorder, unspecified severity F50.819 Assessments Encounter Date Diagnosis (ICD Code) Assessment Notes Treatment Notes Treatment Clinical Notes Section Notes 08/26/2024 MAXINE (generalized anxiety disorder) (ICD-10 - F41.1) SSRI/SNRI side effects discussed including but not limited to, gastric upset, nausea, vomiting, diarrhea and/or constipation, weight changes, sexual side effects including loss of libido, increased suicidal thoughts/behaviors in children and young adults, and serotonin syndrome. 08/26/2024 Attention deficit hyperactivity disorder (ADHD), combined type (ICD-10 - F90.2) 08/28/2024 MAXINE (generalized anxiety disorder) (ICD-10 - F41.1) SSRI/SNRI side effects discussed including but not limited to, gastric upset, nausea, vomiting, diarrhea and/or constipation, weight changes, sexual side effects including loss of libido, increased suicidal thoughts/behaviors in children and young adults, and serotonin syndrome. 09/22/2024 MAXINE (generalized anxiety disorder) (ICD-10 - F41.1) SSRI/SNRI side effects discussed including but not limited to, gastric upset, nausea, vomiting, diarrhea and/or constipation, weight changes, sexual side effects including loss of libido, increased suicidal thoughts/behaviors in children and young adults, and serotonin syndrome. 09/22/2024 Attention deficit hyperactivity disorder (ADHD), combined type (ICD-10 - F90.2) 08/28/2024 Attention deficit hyperactivity disorder (ADHD), combined type (ICD-10 - F90.2) 08/26/2024 Binge eating disorder, unspecified severity (ICD-10 - F50.819) 08/28/2024 Binge eating disorder, unspecified severity (ICD-10 - F50.819) 09/22/2024 Binge eating disorder, unspecified severity (ICD-10 - F50.819) 08/26/2024 Other Start vilazodone 10mg daily for anxiety, as less likely to cause weight gain. Patient educated on all medications including potential benefits, side effects, risks. Educated on proper dosing schedule and importance of compliance. Cont counseling Schedule for ADHD evaluation. Could consider adding lisdexamfetamine for ADHD, binge eating as previously did well on this. -Assessment and treatment plan reviewed with patient. -Compliance with treatment plan importance discussed. -Discussed the risks/benefits of this medication -Discussed medication side effects. -Contact office if symptoms worsen. -Discussed that it can take up to 6-8 weeks to see full therapeutic effects of psychotropic medications. -Crisis prevention hotline 988. 08/28/2024 Other ADHD evaluation reviewed, supportive of DX Start lisdexamfetamine 30mg daily for ADHD management, binge eating. Patient educated on all medications including potential benefits, side effects, risks. Educated on proper dosing schedule and importance of compliance. [place] report checked and consistent with prescription history, no controlled substance prescriptions from other providers. -Assessment and treatment plan reviewed with patient. -Compliance with treatment plan importance discussed. -Discussed the risks/benefits of this medication -Discussed medication side effects. -Contact office if symptoms worsen. -Discussed that it can take up to 6-8 weeks to see full therapeutic effects of psychotropic medications. -Crisis prevention hotline 988. 09/22/2024 Other Increase vilazodone to 20mg daily for anxiety Incrase lisdexamfetamine to 40mg daily for anxiety Patient educated on all medications including potential benefits, side effects, risks. Educated on proper dosing schedule and importance of compliance. [place] report checked and consistent with prescription history, no controlled substance prescriptions from other providers. -Assessment and treatment plan reviewed with patient. -Compliance with treatment plan importance discussed. -Discussed the risks/benefits of this medication -Discussed medication side effects. -Contact office if symptoms worsen. -Discussed that it can take up to 6-8 weeks to see full therapeutic effects of psychotropic medications. -Crisis prevention hotline 510. Plan Of Treatment Pending Test Test Name Order Date ADHD Testing 08/26/2024 Insurance Providers Payer Name Payer Address Payer Phone Subscriber Number Group Number Insured Name Patient Relationship to Insured Coverage Start Date Coverage End Date [facility] [address] [place] [address] [id number] Eveline Guillen Self - patient is the insured Medical (General) History Medical History History ICD Code Past Psychiatric History: Anxiety Disord er abdominal aortic aneurysm: No atrial fibrillation: No chronic fatigue syndrome: No essential tremor: No hyperlipidemia: No hypertension: No Parkinson's disease: No restless leg syndrome: No stroke: No subdural hematoma: No type 1 diabetes mellitus: No type 2 diabetes mellitus: No vitamin B12 deficiency: No vitamin D deficiency: No
--- OUTSIDE RECORDS SUMMARY | 2025-05-12 08:35 | XMS_ITS | Clinical Summary ---
Author Organization [facility] Address [address] [place] [address] Care Team Providers Care Roof Fixer Name Role Phone Michael Yuan DO Primary Care Provider [phone]- [phone] Allergies Active Allergy Reactions Criticality Noted Date [...] on file Legal Sex Female 6:19 PM PEDIATRIC CNS Gender Identity Not on file Sexual Orientation [...] 157.5 cm (5' 2) 08/27/2021 7:12 PM PEDIATRIC CNS Body Mass Index 40.24 08/27/2021 7:12 PM PEDIATRIC CNS Plan of Treatment Health Maintenance Due Date Last Done Comments Cervical Cancer Screening 1992 Depression Screening 1992 Hepatitis C Screening 1992 Varicella Vaccines (1 of 2 - 13+ 2-dose series) 2005 Hepatitis B Screening 2010 Regular Well Visit/Exam 18-64 2010 HPV Vaccines (1 - 3-dose SCDM series) 2019 Influenza Vaccine (#1) 2025 , 06/25/2020, 07/06/2018, Additional history exists DTaP/Tdap/Td Vaccine (2 - Td or Tdap) 08/23/2031 08/23/2021 Pneumococcal vaccine <65 Aged Out No longer eligible based on patient's age to complete this topic Insurance [facility] CHOICE PLUS IDPA [facility] CHOICE PLUS IDPA [facility] CHOICE PLUS [facility] Care Teams Roof Fixer Relationship Specialty Start Date End Date Michael Yuan DO PCP - General Internal Medicine 02/12/24
--- OUTSIDE RECORDS SUMMARY | 2025-05-12 08:36 | XMS_ITS | Patient Health Record ---
Author Organization [facility] Address [address] [place] [address] Care Team Providers Care Sales Training Coordinator Name Role Phone Michael Yuan Primary Care Provider Ranjit Reilly DPM, Emeka Unavailable [phone] ALLERGIES Allergen (clinical drug ingredient) Drug/Non Drug Allergy documented on EMR Reaction Allergy Type Onset Date Status azithromycin Zithromax Hives Drug Allergy Acti ve REASON FOR REFERRAL No Information MEDICATIONS Medication SIG (Take, Route, Frequency, Duration) Notes Start Date End Date Status Ozempic Active SOCIAL HISTORY Tobacco Use: Social History Observation Description Date Details (start date - stop date) Former Smoker 03/09/2010 - 09/09/2010 Sex Assigned At : Social History Observation Description Sex Assigned At Unknown Tobacco Use: Question Answer Notes Patient is a: former smoker When did you start smoking? 03/09/2010 When did you stop smoking? 09/09/2010 Alcohol screening: Question Answer Notes Did you have a drink contain ing alcohol in the past year? Yes How often did you have a dri nk containing alcohol in the past year? Monthly or less (1 point) How many drinks did you have on a typical day when you were drinking in the past year? 1 or 2 (0 points) How often did you have six o r more drinks on one occasion in the past year? Never (0 points) Points 1 Interpretation Negative PROBLEMS Problem Type ICD Code Onset Dates Problem Status W/U Status Risk SNOMED Code Notes Problem Pain in left ankle and joints of left foot (M25.572) 3 Active confirmed 685334377 Problem Stiffness of left ankle joint (M25.672) 3 Active confirmed 742643522045602 Problem Achilles tendinitis, left leg (M76.62) 3 Active confirmed 170029320497343 Problem Displaced trimalleolar fracture of left lower leg, subsequent encounter for closed fracture with routine healing (S82.852D) 3 Active confirmed [id number] PLAN OF TREATMENT Pending Test Test Name Order Date MRI : Ankle, left 06/21/2023 Insurance Providers Payer Name Payer Address Payer Phone Subscriber Number Group Number Insured Name Patient Relationship to Insured Coverage Start Date Coverage End Date [employer] [facility] [address] [place] [phone] [id number] Spouse - patient is the spouse of the insured MEDICAL (GENERAL) HISTORY Surgical History Surgery Date(Month/Year) ORIF - Open reduction and in ternal fixation of left ankle fracture (outside facility) 03/11/2023 Tonsillectomy 2007
--- NOTE | 2025-05-12 08:50 | ED.FEMALEGU ---
HPI - Female Genitourinary General Chief complaint: Urogenital-Female Stated complaint: Urinary Problem Time Seen by Provider: 05/12/25 08:50 Source: patient and RN notes reviewed Mode of arrival: ambulatory Limitations: no limitations History of Present Illness HPI Narrative: 34-year-old female presents concern for urine frequency, urgency, dysuria at the end of urination, feeling of not getting her bladder empty. She reports low back ache, suprapubic pressure, chills and nausea. She reports 2 days of symptoms. She took azo yesterday MD elicited complaint: UTI Related Data Allergies Allergy/AdvReac Type Severity Reaction Status Date / Time azithromycin Allergy Unknown Hives Verified 04/09/25 10:58 erythromycin base Allergy Unknown Hives Verified 04/09/25 10:58 SURGICAL GLUE Allergy Other Uncoded 04/09/25 10:58 Review of Systems Review of Systems: CONSTITUTIONAL: Reports malaise, chills. Denies sweats or fever. CARDIOVASCULAR: Denies chest pain, palpitations, or edema. RESPIRATORY: Denies cough or dyspnea. GASTROINTESTINAL: Denies abdominal pain, vomiting, diarrhea. Reports nausea GENITOURINARY: Reports dysuria, frequency, urgency, suprapubic pressure. Denies flank pain or hematuria. SKIN: Denies rash or itching. MUSCULOSKELETAL: Reports low back ache. Denies myalgia. 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 Hydronephrosis Anxiety Anemia Surgical History Surgical History Hx of tubal ligation Hx of section Hx of ovarian cystectomy H/O laparoscopy [place] teeth removed Hx of tonsillectomy H/O dilation and curettage Family History Family History Father Family history of elevated blood lipids Hypertension Diabetes mellitus Mother Hypertension Osteoporosis Sibling Patient's brother is in good health Social History Social History Social History: Caffeine- Daily Smoking status: Former smoker Tobacco type: cigarettes Second hand tobacco smoke exposure: Yes Smoking end date: 09/09/12 Additional smoking assessment comments: ONLY SMOKED A COUPLE MONTHS Alcohol intake: current Alcohol use details: RARE Substance use: current Substance use type: marijuana Other substance usage details: rare Lack of Transportation: No Lack of Food: Never True Current Housing: I Have Housing Concerned About Future Housing: No Difficulty Paying Gas/Electric Bills: No Difficulty Paying for Meds: No Currently Unemployed: No Education: High School Diploma/GED Difficulty w/ Childcare or Family Care: No Living arrangements: with family Spiritual care concerns: No Comments At time of signature, agree with nursing past medical, surgical, social and family history. There is no relevant family history pertinent to the presenting complaint Exam Narrative: GENERAL: Well-appearing, well-nourished, and in no acute distress. HEAD: Normocephalic. EYES: PERRLA, conjunctivae clear. NECK: Supple. No lymphadenopathy CHEST: Clear to auscultation. No respiratory distress. HEART: Regular rate and rhythm. ABDOMEN: Soft, nontender upon palpation, nondistended, no palpable or pulsatile masses, no guarding. No CVA tenderness SKIN: Warm, dry, no rash. NEURO: Alert and oriented x3. PSYCH: Normal mood and affect Course Course Emergency Course: Patient is aware of diagnosis, understands and agrees to treatment plan. Anticipatory guidance given. Patient agrees to follow-up as directed and is aware of reasons to seek care at the emergency department. Portions of this record may have been created with voice recognition software Level of Care: Express Care Visit Vital Signs Vital signs: Reviewed. MDM - Female Genitourinary MDM Narrative Medical decision making narrative: Exam findings and UA show no acute concerns or changes; patient is non-toxic appearing and is in no distress. Patient is appropriate for outpatient treatment and follow-up. Differential Diagnosis Differential diagnosis: Likely urinary tract infection and cystitis Critical Care Time Critical Care Time Critical Care Time: No Discharge Plan Discharge Clinical Impression: Symptoms of urinary tract infection Patient Disposition: Home Condition: Stable Instructions: Antibiotic Form, Urinary Tract Infection in Women (ED) Additional Instructions: We will send a urine culture to the lab; if the culture identifies an organism that the prescribed antibiotic will not treat, you will receive a phone call from an urgent care staff member and an appropriate antibiotic will be prescribed. -Your symptoms should begin to improve within a day of starting antibiotics. But you should finish all the antibiotic pills you get. Otherwise your infection might come back. -Also recommend: increase water intake. Tylenol/ibuprofen as needed for pain or fever -Follow-up with your primary care provider for urine recheck or seek ER visit if condition worsens with high fever, nausea, vomiting and severe back pain. Patient Language: Congolese Prescriptions: New sulfamethoxazole-trimethoprim 800-160 mg tablet 1 tablet PO Q12H 7 Days Qty: 14 0RF Follow-up/Referrals: Michael Yuan DO [Primary Care Provider, Internal Medicine] Stand Alone Forms: Work/School Release IP Time of Disposition: 08:54
[2025-05-12 09:08] LABS: EDUAAPPEAR Clear; EDUABILI Negative (Negative); EDUABLOOD Negative (Negative); EDUACOLOR1 Yellow; EDUAGLUCOSE Negative (Negative); EDUAKETONE Negative (Negative); EDUALEUKO Trace (Negative); EDUANITRATE Negative (Negative); EDUAPH 7.5; EDUAPROTEIN Negative (Negative); EDUASPGRAVITY 1.015; EDUAUROBILI 0.2
== END 2025-05-12 08:55 | disposition home or self-care (01) ==
PROVIDERS: Emergency Provider Nurse Practitioner; PCP Internal Medicine
DX: R35.0 Frequency of micturition (principal); R30.0 Dysuria; R39.15 Urgency of urination; N80.9 Endometriosis, unspecified; F12.90 Cannabis use, unspecified, uncomplicated; Z87.891 Personal history of nicotine dependence
CPT/HCPCS: 81003; 87077; 87086; 87186; 99213; G0463

== ENCOUNTER 2025-05-29 08:17 | Outpatient (CLI) | payer OTHER, SELFPAY ==
--- OUTSIDE RECORDS SUMMARY | 2024-08-05 04:44 | XMS_ITS | Continuity of Care Document ---
Author Organization [facility] Address [address] [place] [address] Phone Care Team Providers Care Surgical Device Sales Representative Name Role Phone Franklin Zimmerman DPM Unavailable [...] Providers Copied on Encounter [facility], [address], [place], [address], [place] tel:[phone] [facility] [place] [facility] No Information [address] Elsie jarrett [address], [place], [place], [id number] , [place]. tel: [phone] [facility], [address], [place], [address], [place] tel:[phone] [facility] [place] [facility] S/P hardware removal [address] Elsie jarrett [address], [place], [place], [id number] , [place]. tel: [phone] Referring Provider: Michael Corbin, [address], [place], [address]. tel:[phone] [facility], [address], [place], [address], [place] tel:[phone] [facility] [place] [facility] S/P hardware removal 4 Fer[address], [place], [place], [id number] , [place]. tel:[phone] Referring Provider: Michael Corbin, [address], [place], [address]. tel:[phone] [facility], [address], [place], [address], [place] tel:[phone] [facility] [place] Painful orthopaedic hardwareOther synovitis and tenosynovitis, left ankle and foot 4 Fer[address], [place], [place], [id number] , [place]. tel: [phone] [facility], [address], [place], [address], [place] tel:[phone] [facility] [place] [facility] No Information 4 Fer[address], [place], [place], [id number] , [place]. tel: [phone] [facility], [address], [place], [address], [place] tel:[phone] [facility] [place] [facility] Painful orthopaedic hardwareOther synovitis and tenosynovitis, left ankle and foot 4 Fer[address], [place], [place], [id number] , [place]. tel: [phone] OFFICE/OUTPAT IENT VISIT NEW [facility], [address], [place], [address], [place] tel:[phone] [facility] Retained orthopedic hardware [address] Jerem[address], [place], [place], [id number] . tel: [phone] Referring Provider: Michael Corbin, [address], [place], [address]. tel:[phone] Family History Family Member Type Diagnosis Age At Onset No Information Payers Payer name Insurance type Covered constitution party ID Authoriza tijailyn(s) [employer] Access Choice PPO E2 OT [id number] Social History Type Description Quantity Date Captured [...]
--- OUTSIDE RECORDS SUMMARY | 2025-05-29 08:20 | XMS_ITS | Clinical Summary ---
Author Organization [facility] Address [address] [place] [address] Care Team Providers Care Adult Neurologist Name Role Phone Michael Yuan DO Primary Care Provider +1- [phone] Allergies Active Allergy Reactions Criticality Noted Date [...] on file Legal Sex Female 6:19 PM HEADLINE WRITER Gender Identity Not on file Sexual Orientation [...] 157.5 cm (5' 2) 08/27/2021 7:12 PM HEADLINE WRITER Body Mass Index 40.24 08/27/2021 7:12 PM HEADLINE WRITER Plan of Treatment Health Maintenance Due Date [...] patient's age to complete this topic Insurance [facility] CHOICE PLUS IDPA [facility] CHOICE PLUS IDPA [facility] CHOICE PLUS [facility] Care Teams Adult Neurologist Relationship Specialty Start Date End Date Michael Yuan DO PCP - General Internal Medicine 02/12/24
[2025-05-29 08:55] LABS: Hematocrit 39.1 % (37.0-47.0); Hemoglobin 12.6 g/dL (12.0-15.0); Immature Granulocyte Percent A 0.4 % (0-0.5); Lymphocytes Absolute Auto 1.92 K/mm3 (0.9-3.2); Mean Corpuscular HGB Conc 32.2 g/dl (32-36); Mean Corpuscular Hemoglobin 26.7 pg (26-34); Mean Corpuscular Volume 82.8 fl (80-100); Nucleated Red Blood Cells Absolute Auto 0.000 K/mm3 (0.0-0.012); Nucleated Red Blood Cells Perc 0.0 % (0.0-0.2); Platelet Count Result 249 k/mm3 (150-375); Red Blood Count 4.72 M/mm3 (4.2-5.4); White Blood Count 6.9 K/mm3 (4.5-10.0)
[2025-05-29 09:10] LABS: Alanine Aminotransferase 25 U/L (6-35); Albumin Level 4.1 g/dL (3.5-5.1); Alkaline Phosphatase 65 U/L (38-126); Anion Gap 6 mmol/L (4-12); Aspartate Amino Transferase 24 U/L (14-36); Bilirubin,Total 0.5 mg/dL (0.2-1.3); Blood Urea Nitrogen 10 mg/dL (7-17); Calcium 8.7 mg/dL (8.4-10.2); Carbon Dioxide 25 mmol/L (22-30); Chloride 105 mmol/L (98-107); Cholesterol 208 mg/dL (0-200); Estimated Glomerular Filt Rate > 60; Glucose 93 mg/dL (65-110); HDL Direct 48 mg/dL; Potassium 4.1 mmol/L (3.4-5.0); Sodium 136 mmol/L (137-145); Total Protein 7.4 g/dL (6.3-8.2); Triglycerides 71 mg/dL (<150)
[2025-05-29 09:39] LABS: Thyroid Stimulating Hormone Reflex 1.310 uIU/mL (0.465-4.68)
[2025-05-30 07:08] LABS: FSH 0.8 mIU/mL (.); LH 3.9 mIU/mL (.)
== END 2025-05-29 08:18 | disposition home or self-care (01) ==
LOC: ANHLAB 08:19
PROVIDERS: PCP Internal Medicine; Visit Provider Obstetrics & Gynecology
DX: N95.1 Menopausal and female climacteric states (principal); R53.83 Other fatigue; E66.9 Obesity, unspecified; Z68.41 Body mass index [BMI] 40.0-44.9, adult
CPT/HCPCS: 36415; 80053; 80061; 83001; 83002; 84443; 85025

== ENCOUNTER 2025-06-02 08:16 | Outpatient (CLI) | payer OTHER, SELFPAY ==
--- NOTE | ~2025-06-02 | US_ITS ---
EXAMINATION: US pelvic complete w TV, 06/02/2025 8:17 CDT HISTORY: R10.2 - Pelvic and perineal pain Comparison: None Technique: Solares-scale and color Doppler images were obtained. Findings: Uterus: Uterus anteverted 9.4 x 5.1 x 4.7 cm. . Endometrium 1.3 cm. Right Ovary:Right ovary 1.6 x 2.4 x 2 cm, no adnexal mass, normal flow. Left Ovary: Left ovary 1.5 x 1.6 x 1.9 cm, no adnexal mass, normal flow Free Fluid: None Impression: No etiology to explain the patient's symptoms. Reviewed, dictated and finalized at location A. Impression: No etiology to explain the patient's symptoms.
== END 2025-06-02 08:17 | disposition home or self-care (01) ==
LOC: GOSHIMG 08:16
PROVIDERS: PCP Obstetrics & Gynecology; Visit Provider Obstetrics & Gynecology
DX: R10.2 Pelvic and perineal pain (principal)
CPT/HCPCS: 76830; 76856

== ENCOUNTER 2025-07-23 08:12 | Emergency (ER) | payer OTHER, SELFPAY ==
--- OUTSIDE RECORDS SUMMARY | 2025-07-23 08:17 | XMS_ITS | Clinical Summary ---
Author Organization [facility] Address [address] [place] [address] Care Team Providers Care Nonprofit Manager Name Role Phone Michael Yuan DO Primary Care Provider +1- [phone] Allergies Active Allergy Reactions Criticality Noted Date [...] on file Legal Sex Female 6:19 PM JOGGER OPERATOR Gender Identity Not on file Sexual Orientation [...] 157.5 cm (5' 2) 08/27/2021 7:12 PM JOGGER OPERATOR Body Mass Index 40.24 08/27/2021 7:12 PM JOGGER OPERATOR Plan of Treatment Health Maintenance Due Date [...] patient's age to complete this topic Insurance [facility] CHOICE PLUS IDPA [facility] CHOICE PLUS IDPA [facility] CHOICE PLUS [facility] Care Teams Nonprofit Manager Relationship Specialty Start Date End Date Michael Yuan DO PCP - General Internal Medicine 02/12/24
--- OUTSIDE RECORDS SUMMARY | 2025-07-23 08:17 | XMS_ITS | Data Portability ---
Author Organization [facility] [place], [place] Address [address] [place] [address] Care Team Providers Care Waiter Waitress Name Role Phone MARCEL MONTOYA Primary Care Provider Assessment Encounter Date Assessment Date Assessment LastModified by Organization Details LastModified Time 03/15/2020 03/15/2020 Annual gynecological exam performed. Patient will come back in a year unless there are new symptoms. 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 All staff wore face coverings during this encounter, as well as provided additional cleaning and sanitizing of all surfaces, including countertops, pens, chairs, door handles, light switches, etc, prior to and following the patient s visit. [email or web address] Not available 11/11/2020 16:02:38 Plan of Treatment Reminders Order Date Submit Date Provider Last Modified By Organization Details Last Modified Time Details Appointments None recorded. Lab unlisted lab - clnt [facility] health panel 2019 020 LILA [facility]), [address] [facility] [address] , [address], [place], [address], 0 06:30:45 Referral None recorded. Procedures None recorded. Surgeries None recorded. Imaging None recorded. Medication Orders Metrogel Vaginal 0.75 % (37.5 mg/5 gram) 2019 020 [email or web address] 1 [facility] [id number] In [facility], [place], [address], 1 15:51:05 Patient TargetsNo targets recorded. Patient InstructionsNo instructions recorded. Reason for Referral None Reported. Results Created Date Observation Date Name Description Value Unit Range Abnormal Flag Note LastModifiedBy Organization Detail LastModifiedTime 03/15/20 20 03/16/2020 [facility]str [facility] [place] [facility] WBC 8.9 K/uL 3.8-11 .5 Not Available [facility] ([facility]) [address] [place] [address] [address] Don, [place], [address], 03/16/2020 06:30:45 03/15/20 20 03/16/2020 clnt restr ict [facility] [place] [facility] red blood cell count (RBC) 4.98 M/mm3 3.60-5 .30 Not Available [facility] ([facility]) [address] [place] [address] [address] Don, [place], [address], 03/16/2020 06:30:45 03/15/20 20 03/16/2020 clnt restr ict - [place] [facility] hemoglobin (HGB) 13.8 gm/dL 11.5-1 5.5 Not Available [facility] ([facility]) [address] [place] [address] Dr Don, [place], [address], 03/16/2020 06:30:45 03/15/20 20 03/16/2020 clnt restr ict - [place] [facility] hematocrit (HCT) 41.9 % 35.2-4 6.4 Not Available [facility] ([facility]) [address] [place] [address] Dr Don, [place], [address], 03/16/2020 06:30:45 03/15/20 20 03/16/2020 clnt restr ict - [place] [facility] MCV 84.1 fL 79.0-9 9.0 Not Available [facility] ([facility]) [facility] [address], [place], [address], 03/16/2020 06:30:45 03/15/20 20 03/16/2020 clnt restr ict - [place] [facility] MCH 27.7 pg 26.9-3 5.0 Not Available [facility] ([facility]) [facility] [facility] [address], [place], [address], 03/16/2020 06:30:45 03/15/20 20 03/16/2020 clnt restr ict - [place] [facility] MCHC 32.9 g/dL 30.4-3 4.8 Not Available [facility] ([facility]) [address] [place] [address] Dr Don, [place], [address], 03/16/2020 06:30:45 03/15/20 20 03/16/2020 clnt restr ict - [place] [facility] RDW 42.5 fL 38.6-5 3.8 Not Available [facility]) [facility] [facility] [address], [place], [address], 03/16/2020 06:30:45 03/15/20 20 03/16/2020 clnt restr ict - [place] [facility] platelet count 265 K/cum m 137-39 7 Not Available [facility] ([facility]) [address] [place] [address] [address] Don, [place], [address], 03/16/2020 06:30:45 03/15/20 20 03/16/2020 clnt restr ict - [place] [facility] neutrophils automated 55.7 % 41.0-7 7.0 Not Available [facility] ([facility]) [facility] [facility] [address], [place], [address], 03/16/2020 06:30:45 03/15/20 20 03/16/2020 clnt restr ict - [place] [facility] lymphocytes automated 31.4 % 14.0-4 8.0 Not Available [facility] ([facility]) [address] [place] [address] Dr Don, [place], [address], 03/16/2020 06:30:45 03/15/20 20 03/16/2020 clnt restr ict - [place] [facility] monocytes automated 5.6 % 4.0-13 .0 Not Available [facility] ([facility]) [address] [place] [address] Dr Don, [place], [address], 03/16/2020 06:30:45 03/15/20 20 03/16/2020 clnt restr ict - [place] [facility] eosinophils automated 6.2 % 0.0-8. 0 Not Available [facility] ([facility]) [address] [place] [address] Dr Don, [place], [address], 03/16/2020 06:30:45 03/15/20 20 03/16/2020 clnt restr ict - [place] [facility] basophils automated 0.6 % 0.0-1. 5 Not Available [facility] ([facility]) [address] [place] [address] Dr Don, [place], [address], 03/16/2020 06:30:45 03/15/20 20 03/16/2020 clnt restr ict - [place] [facility] immature granulocyte automated 0.5 % 0.0-1. 0 Not Available [facility] ([facility]) [address] [place] [address] Dr Don, [place], [address], 03/16/2020 06:30:45 03/15/20 20 03/16/2020 clnt restr ict - [place] [facility] sodium 142 mEq/L 135-14 5 Not Available [facility] ([facility]) [address] [place] [address] Dr Don, [place], [address], 03/16/2020 06:30:45 03/15/20 20 03/16/2020 clnt restr ict - [place] [facility] potassium 4.2 mEq/L 3.5-5. 3 Not Available [facility] ([facility]) [address] [place] [address] Dr Don, [place], [address], 03/16/2020 06:30:45 03/15/20 20 03/16/2020 clnt restr ict - [place] [facility] chloride 102 mEq/L 97-108 Not Available [facility] ([facility]) [address] [place] [address] Dr Don, [place], [address], 03/16/2020 06:30:45 03/15/20 20 03/16/2020 clnt restr ict - [place] [facility] CO2 28 mEq/L 22-32 Not Available [facility] ([facility]) [address] [place] [address] Dr Don, [place], [address], 03/16/2020 06:30:45 03/15/20 20 03/16/2020 clnt restr ict - [place] [facility] glucose 74 mg/dL 65-99 Not Available [facility] ([facility]) [address] [place] [address] Dr Don, [place], [address], 03/16/2020 06:30:45 03/15/20 20 03/16/2020 clnt restr ict - [place] [facility] BUN 13 mg/dL 6-20 Not Available [facility] ([facility]) [address] [place] [address] Dr Don, [place], [address], 03/16/2020 06:30:45 03/15/20 20 03/16/2020 clnt restr ict - [place] [facility] creatinine 0.58 mg/dL 0.50-1 .00 Not Available [facility] ([facility]) [address] [place] [address] Dr Don, [place], [address], 03/16/2020 06:30:45 03/15/20 20 03/16/2020 clnt restr ict - [place] [facility] calcium 9.5 mg/dL 8.6-10 .4 Not Available [facility] ([facility]) [address] [place] [address] Dr Don, [place], [address], 03/16/2020 06:30:45 03/15/20 20 03/16/2020 clnt restr ict - [place] [facility] protein 7.2 g/dL 6.0-8. 3 Not Available [facility] ([facility]) [address] [place] [address] Dr Don, [place], [address], 03/16/2020 06:30:45 03/15/20 20 03/16/2020 clnt restr ict - [place] [facility] albumin 4.6 g/dL 3.5-5. 3 Not Available [facility] ([facility]) [address] [place] [address] Dr Don, [place], [address], 03/16/2020 06:30:45 03/15/20 20 03/16/2020 clnt restr ict - [place] [facility] alkaline phosphatase 65 IU/L 35-121 Not Available [facility] ([facility]) [facility] [facility] [address], [place], [address], 03/16/2020 06:30:45 03/15/20 20 03/16/2020 clnt restr ict - [place] [facility] panel ALT (SGPT) 16 IU/L <5-47 Not Available [facility] ([facility]) [address] [place] [address] Dr Don, [place], [address], 03/16/2020 06:30:45 03/15/20 20 03/16/2020 clnt restr ict - [place] [facility] AST (SGOT) 14 IU/L <5-40 Not Available [facility] ([facility]) [address] [place] [address] Dr Don, [place], [address], 03/16/2020 06:30:45 03/15/20 20 03/16/2020 clnt restr ict - [place] [facility] bilirubin, total 0.4 mg/dL <0.2-1 .2 Not Available [facility] ([facility]) [address] [place] [address] Dr Don, [place], [address], 03/16/2020 06:30:45 03/15/20 20 03/16/2020 clnt restr ict - [place] [facility] A/G ratio 1.8 mg/dL 1.1-2. 5 Not Available [facility] ([facility]) [address] [place] [address] [address] Don, [place], [address], 03/16/2020 06:30:45 03/15/20 20 03/16/2020 clnt restr ict - [place] [facility] panel cholesterol 197 mg/dL <200 Not Available [facility] ([facility]) [address] [place] [address] Dr Don, [place], [address], 03/16/2020 06:30:45 03/15/20 20 03/16/2020 clnt restr ict - [place] [facility] triglyceride s 71 mg/dL <150 Not Available [facility] ([facility]) [address] [facility] [address], [place], [address], 03/16/2020 06:30:45 03/15/20 20 03/16/2020 clnt restr ict - [place] [facility] HDL cholesterol 63 mg/dL >39 Not Available [facility] ([facility]) [facility] [facility] [address], [place], [address], 03/16/2020 06:30:45 03/15/20 20 03/16/2020 clnt restr ict - [place] [facility] cholesterol / HDL ratio 3.13 ratio 0.00-4 .44 Not Available [facility] ([facility]) [facility] [facility] [address], [place], [address], 03/16/2020 06:30:45 03/15/20 20 03/16/2020 clnt restr ict - [place] [facility] non-HDL cholesterol 134 mg/dL <130 high Not Available [facility] ([facility]) [facility] [facility] [address], [place], [address], 03/16/2020 06:30:45 03/15/20 20 03/16/2020 clnt restr [...] 2004 ATPII I guide lines Not Available [facility] ([facility]) [address] [facility] [address], [place], [address], 03/16/2020 06:30:45 03/15/20 20 03/16/2020 clnt restr ict - [place] [facility] LDL/HDL ratio 1.9 ratio <3.3 Not Available [facility]) [address] [facility] [address], [place], [address], 03/16/2020 06:30:45 03/15/20 20 03/16/2020 clnt restr ict - [place] [facility] TSH reflex to FT4 1.11 mU/L 0.27-4 .20 Not Available [facility]) [facility] [address], [place], [address], 03/16/2020 06:30:45 03/15/20 20 03/16/2020 clnt restr [...] corre latio n requi red. Not Available [facility]) [facility] [facility] [address], [place], [address], 03/16/2020 06:30:45 03/15/20 20 03/16/2020 GFR, estim ated (eGFR ), serum estimated GFR (black) 146 mL/mi n/1.7 3m2 >59 Not Available [facility] ([facility]) [facility] [facility] [address], [place], [address], 03/16/2020 06:30:46 03/15/20 20 03/16/2020 GFR, estim [...] -[facility] ([facility]) [address] [facility] [address], [place], [address], 03/16/2020 06:30:46 03/15/20 20 03/16/2020 clnt restr ict - [place] [facility] WBC 8.9 K/uL 3.8-11 .5 Not Available [facility] ([facility]) [address] [facility] [address], [place], [address], 03/16/2020 06:30:47 03/15/20 20 03/16/2020 clnt restr ict - [place] [facility] red blood cell count (RBC) 4.98 M/mm3 3.60-5 .30 Not Available [facility] ([facility]) [facility] [facility] [address], [place], [address], 03/16/2020 06:30:47 03/15/20 20 03/16/2020 clnt restr ict - [place] [facility] hemoglobin (HGB) 13.8 gm/dL 11.5-1 5.5 Not Available [facility] ([facility]) [address] [place] [address] Dr Don, [place], [address], 03/16/2020 06:30:47 03/15/20 20 03/16/2020 clnt restr ict - [place] [facility] panel hematocrit (HCT) 41.9 % 35.2-4 6.4 Not Available [facility] ([facility]) [address] [place] [address] Dr Don, [place], [address], 03/16/2020 06:30:47 03/15/20 20 03/16/2020 clnt restr ict - [place] [facility] MCV 84.1 fL 79.0-9 9.0 Not Available [facility] ([facility]) [address] [place] [address] Dr Don, [place], [address], 03/16/2020 06:30:47 03/15/20 20 03/16/2020 clnt restr ict - [place] [facility] panel MCH 27.7 pg 26.9-3 5.0 Not Available [facility] ([facility]) [address] [place] [address] Dr Don, [place], [address], 03/16/2020 06:30:47 03/15/20 20 03/16/2020 clnt restr ict - [place] [facility] MCHC 32.9 g/dL 30.4-3 4.8 Not Available [facility] ([facility]) [address] [place] [address] Dr Don, [place], [address], 03/16/2020 06:30:47 03/15/20 20 03/16/2020 clnt restr ict - [place] [facility] panel RDW 42.5 fL 38.6-5 3.8 Not Available [facility] ([facility]) [facility] [address], [place], [address], 03/16/2020 06:30:47 03/15/20 20 03/16/2020 clnt restr ict - [place] [facility] platelet count 265 K/cum m 137-39 7 Not Available [facility] ([facility]) [address] [place] [address] Dr Don, [place], [address], 03/16/2020 06:30:47 03/15/20 20 03/16/2020 clnt restr ict - [place] [facility] neutrophils automated 55.7 % 41.0-7 7.0 Not Available [facility] ([facility]) [address] [place] [address] Dr Don, [place], [address], 03/16/2020 06:30:47 03/15/20 20 03/16/2020 clnt restr ict - [place] [facility] lymphocytes automated 31.4 % 14.0-4 8.0 Not Available [facility] ([facility]) [address] [place] [address] Dr Don, [place], [address], 03/16/2020 06:30:47 03/15/2003/16/2020 clnt restr ict - [place] [facility] monocytes automated 5.6 % 4.0-13 .0 Not Available [facility] ([facility]) [address] [place] [address] Dr Don, [place], [address], 03/16/2020 06:30:47 03/15/20 20 03/16/2020 clnt restr ict - [place] [facility] panel eosinophils automated 6.2 % 0.0-8. 0 Not Available [facility] ([facility]) [facility] [address], [place], [address], 03/16/2020 06:30:47 03/15/20 20 03/16/2020 clnt restr ict - [place] [facility] panel basophils automated 0.6 % 0.0-1. 5 Not Available [facility] ([facility]) [address] [place] [address] Dr Don, [place], [address], 03/16/2020 06:30:47 03/15/20 20 03/16/2020 clnt restr ict - [place] [facility] immature granulocyte automated 0.5 % 0.0-1. 0 Not Available [facility] ([facility]) [address] [place] [address] Dr Don, [place], [address], 03/16/2020 06:30:47 03/15/20 20 03/16/2020 clnt restr ict - [place] [facility] sodium 142 mEq/L 135-14 5 Not Available [facility] ([facility]) [address] [place] [address] Dr Don, [place], [address], 03/16/2020 06:30:47 03/15/20 20 03/16/2020 clnt restr ict - [place] [facility] potassium 4.2 mEq/L 3.5-5. 3 Not Available [facility] ([facility]) [address] [place] [address] Dr Don, [place], [address], 03/16/2020 06:30:47 03/15/20 20 03/16/2020 clnt restr ict - [place] [facility] chloride 102 mEq/L 97-108 Not Available [facility] ([facility]) [facility] [address] Don, [place], [address], 03/16/2020 06:30:47 03/15/20 20 03/16/2020 clnt restr ict - [place] [facility] panel CO2 28 mEq/L 22-32 Not Available [facility] ([facility]) [address] [place] [address] Don, [place], [address], 03/16/2020 06:30:47 03/15/20 20 03/16/2020 clnt restr ict - [place] [facility] glucose 74 mg/dL 65-99 Not Available [facility] ([facility]) [address] [place] [address] Don, [place], [address], 03/16/2020 06:30:47 03/15/20 20 03/16/2020 clnt restr ict - [place] [facility] BUN 13 mg/dL 6-20 Not Available [facility] ([facility]) [address] [place] [address] Don, [place], [address], 03/16/2020 06:30:47 03/15/20 20 03/16/2020 clnt restr ict - [place] [facility] creatinine 0.58 mg/dL 0.50-1 .00 Not Available [facility] ([facility]) [address] [place] [address] Don, [place], [address], 03/16/2020 06:30:47 03/15/20 20 03/16/2020 clnt restr ict - [place] [facility] calcium 9.5 mg/dL 8.6-10 .4 Not Available [facility] ([facility]) [address] [place] [address] Don, [place], [address], 03/16/2020 06:30:47 03/15/20 20 03/16/2020 clnt restr ict - [facility] [facility] protein 7.2 g/dL 6.0-8. 3 Not Available [facility] ([facility]) [address] [place] [address] Don, [place], [address], 03/16/2020 06:30:47 03/15/20 20 03/16/2020 clnt restr ict - [place] [facility] panel albumin 4.6 g/dL 3.5-5. 3 Not Available [facility] ([facility]) [address] [place] [address] [address] Don, [place], [address], 03/16/2020 06:30:47 03/15/20 20 03/16/2020 clnt restr ict - [facility] [facility] alkaline phosphatase 65 IU/L 35-121 Not Available [facility] ([facility]) [address] [place] [address] Dr Don, [place], [address], 03/16/2020 06:30:47 03/15/20 20 03/16/2020 clnt restr ict - [facility] [facility] panel ALT (SGPT) 16 IU/L <5-47 Not Available [facility] ([facility]) [address] [place] [address] Don, [place], [address], 03/16/2020 06:30:47 03/15/20 20 03/16/2020 clnt restr ict - [facility] [facility] panel AST (SGOT) 14 IU/L <5-40 Not Available [facility] ([facility]) [address] [place] [address] Dr Don, [place], [address], 03/16/2020 06:30:47 03/15/20 20 03/16/2020 clnt restr ict - [facility] panel bilirubin, total 0.4 mg/dL <0.2-1 .2 Not Available [facility] ([facility]) [address] [place] [address] Dr Don, [place], [address], 03/16/2020 06:30:47 03/15/20 20 03/16/2020 clnt restr ict - [facility] A/G ratio 1.8 mg/dL 1.1-2. 5 Not Available [facility] ([facility]) [address] [place] [address] Dr Don, [place], [address], 03/16/2020 06:30:47 03/15/20 20 03/16/2020 clnt restr ict - [facility] cholesterol 197 mg/dL <200 Not Available Path [facility] -[facility] ([facility]) [address] [place] [address] Dr Don, [place], [address], 03/16/2020 06:30:47 03/15/20 20 03/16/2020 clnt restr ict - [place] [facility] triglyceride s 71 mg/dL <150 Not Available Path ou -[facility] ([facility]) [address] [place] [address] Dr Don, [place], [address], 03/16/2020 06:30:47 03/15/20 20 03/16/2020 clnt restr ict - [place] [facility] panel HDL cholesterol 63 mg/dL >39 Not Available Path group -[facility] ([facility]) [address] [place] [address] Dr Don, [place], [address], 03/16/2020 06:30:47 03/15/20 20 03/16/2020 clnt restr ict - [place] [facility] panel cholesterol / HDL ratio 3.13 ratio 0.00-4 .44 Not Available [facility] ([facility]) [address] [facility] [address], [place], [address], 03/16/2020 06:30:47 03/15/20 20 03/16/2020 clnt restr ict - [place] [facility] panel non-HDL cholesterol 134 mg/dL <130 high Not Available [facility] -[facility] ([facility]) [address] [facility] [address] Don, [place], [address], 03/16/2020 06:30:47 03/15/20 20 03/16/2020 clnt restr [...] 2004 ATPII I guide lines Not Available [facility] -[facility] ([facility]) [address] [facility] [address] Don, [place], [address], 03/16/2020 06:30:47 03/15/20 20 03/16/2020 clnt restr ict - [place] [facility] he[facility] panel LDL/HDL ratio 1.9 ratio <3.3 Not Available [facility] ([facility]) [address] [facility] [address] Don, [place], [address], 03/16/2020 06:30:47 03/15/20 20 03/16/2020 clnt restr ict - [place] [facility] panel TSH reflex to FT4 1.11 mU/L 0.27-4 .20 Not Available [facility] -[facility] ([facility]) [address] [facility] [address] Don, [place], [address], 03/16/2020 06:30:47 03/15/20 20 03/16/2020 clnt restr [...] n requi red. Not Available [facility] ([facility]) [address], [place], [address], 03/16/2020 06:30:47 03/15/20 20 03/16/2020 pap, LB [...] ded by [facility], [facility], d/b/a PathG concepción, [address] , [place] [address] Wilbert Griffith MD, Labor atory Direc tor. Case revie wed and diagn osis rende red at [facility] Patho logis ts, [facility], d/b/a Path concepción, [address] [facility] , [place] [address] Wilbert Griffith MD, Labor atory Direc tor. CONFI DENTI AL Not Available [facility]) [address], [place], [address], 03/16/2020 15:32:41 11/12/19 21 11/11/2020 rosalina da angelique i DNA, vagin al darnell krusei by RT-PCR Negati ve Swab- 1 Cervi ga Not Available [facility] (Lab) [address] [facility], [place], [address], 11/27/2020 11:03:56 11/12/19 21 11/11/2020 rosalina da angelique i DNA, vagin al darnell krusei by RT-PCR Negati ve Swab- 1 Cervi ga Not Available [facility] (Lab) [address] [facility], [place], [address], 11/27/2020 11:03:54 11/12/19 21 11/11/2020 rosalina da angelique i DNA, vagin al darnell krusei by RT-PCR Negati ve Swab- 1 Cervi ga Not Available [facility] (Lab) [address] [place], [address], 11/27/2020 11:02:51 11/12/19 21 11/11/2020 rosalina da angelique i DNA, vagin al darnell krusei by RT-PCR Negati ve Swab- 1 Cervi ga Not Available [facility] (Lab) [address] [place], [address], 11/27/2020 11:02:49 11/12/19 21 11/11/2020 rosalina da angelique i DNA, vagin al darnell krusei by RT-PCR Negati ve Swab- 1 Cervi ga Not Available [facility] (Lab) [address] [facility], [place], [address], 11/27/2020 11:02:48 11/12/19 21 11/11/2020 mobil uncus , DNA, vagin al nm bkr mobiluncus mulieris and mobiluncus curtisii by RT-PCR Negati ve Swab- 1 Cervi ga *Swab - 1 124- Mobil uncus mulie ris and M. curti sii by Real- Time PCR Date Added : 11/23 Not Available [facility] (Lab) [address] [facility], [place], [address], 11/27/2020 11:03:56 11/12/19 21 11/11/2020 STI panel nm bkr mycoplasma genitalium by RT-PCR Negati ve Swab- 1 Cervi ga *Swab - 1 129- Mycop lasma genit alium by Real- Time PCR (Refl ex to Azith neil in and Fluor oquin olone Resis tance ) Date Added : 11/23 Not Available [facility] (Lab) [address] [facility], [place], [address], 11/27/2020 11:03:57 11/12/19 21 11/11/2020 STI panel nm bkr mycoplasma hominis by RT-PCR Positi ve abnormal Swab- 1 Cervi ga *Swab - 1 130- Mycop lasma homin is by Real- Time PCR Date Added : 11/23 Not Available [facility] (Lab) [address] [facility], [place], [address], 11/27/2020 11:03:57 11/12/19 21 11/11/2020 STI panel nm bkr ureaplasma urealyticum by RT-PCR Negati ve Swab- 1 Cervi ga *Swab - 1 320- Ureap lasma ureal yticu m by Real- Time PCR (Refl ex to Fluor oquin olone Resis tance ) Date Added : 11/23 Not Available [facility] (Lab) [address] [facility] [place], [address], 11/27/2020 11:03:57 11/12/19 21 11/11/2020 bacte rial vagin osis DNA, PCR, vagin al fluid gardnerella vaginalis PCR Positi ve abnormal Swab- 1 Cervi ga *Swab - 1 132- Gardn erell a vagin ashleigh by Real- Time PCR Date Added : 11/23 Not Available [facility] (Lab) [address] [place], [address], 11/27/2020 11:03:57 11/12/19 21 11/11/2020 bacte rial vagin osis DNA, PCR, vagin al fluid atopobium vaginae PCR Positi ve abnormal Swab- 1 Cervi ga *Swab - 1 142- Atopo bium vagin ae by Real- Time PCR Date Added : 11/23 Not Available [facility] (Lab) [address], [place], [address], 11/27/2020 11:03:57 11/12/19 21 11/11/2020 bacte rial vagin osis DNA, PCR, vagin al fluid bacterial vaginosis associated bacteria 2 (bvab2) Positi ve abnormal Swab- 1 Cervi ga *Swab - 1 164- Bacte rial Vagin osis Assoc iated Bacte rium 2 (BVAB 2) by Real- Time PCR Date Added : 11/23 Not Available [facility] (Lab) [address] [place], [address], 11/27/2020 11:03:57 11/12/19 21 11/11/2020 bacte rial vagin osis DNA, PCR, vagin al fluid megasphaera species (type 1 and type 2) PCR Positi ve (Type1 , Type2) abnormal Swab- 1 Cervi ga Type1 :Posi tive Type2 :Posi tive. *Swab - 1 165- Megas phaer a speci es (Type 1 and Type 2) by Real- Time PCR Date Added : 11/23 Not Available [facility] (Lab) [address] [facility], [place], [address], 11/27/2020 11:03:57 11/12/19 21 11/11/2020 bacte rial vagin osis DNA, PCR, vagin al fluid lactobacillu s (bvpanel) PCR See Commen t Swab- 1 Cervi ga L.cri spatu s: Negat cedric L.summer senii : Negat cedric L.gas seri : Negat cedric L.ine rs : Posit cedric. Not Available [facility] (Lab) [address] [facility], [place], [address], 11/27/2020 11:03:57 11/12/19 21 11/11/2020 rosalina da sp DNA, vagin al darnell albicans PCR Positi ve abnormal Swab- 1 Cervi ga *Swab - 1 551- Rosalina da albic ans by Real- Time PCR Date Added : 11/23 Not Available [facility] (Lab) [address] [facility], [place], [address], 11/27/2020 11:03:57 11/12/19 21 11/11/2020 rosalina da sp DNA, vagin al darnell tropicalis PCR Negati ve Swab- 1 Cervi ga *Swab - 1 557- Rosalina da tropi calis by Real- Time PCR Date Added : 11/23 Not Available [facility] (Lab) [address] [facility], [place], [address], 11/27/2020 11:03:57 11/12/19 21 11/11/2020 rosalina da sp DNA, vagin al darnell parapsilosis PCR Negati ve Swab- 1 Cervi ga *Swab - 1 558- Rosalina da parap madeleine is by Real- Time PCR Date Added : 11/23 Not Available [facility] (Lab) [address] [facility], [place], [address], 11/27/2020 11:03:57 11/12/19 21 11/11/2020 rosalina da sp DNA, vagin al darnell glabrata PCR Negati ve Swab- 1 Cervi ga *Swab - 1 559- Rosalina da glabr cherry by Real- Time PCR Date Added : 11/23 Not Available [facility] (Lab) [address], [place], [address], 11/27/2020 11:03:57 Result Notes None recorded. Problems Name Problem SNOMED Code Status Onset Date Resolution Date Notes Provider Name and Address Organization Details Recorded Time Contrace ption care manageme nt Completed 201911/28/2020 Encounte r for contrace ptive manageme nt, unspecif ied;Yair rded Elsewher e: No Locat ion: [facility] S ource: EHR Pocket Marker дмитрий: N Michelle ce ID: [id number] Charles lable Time: 01:00:00 PM [facility] 15:25:02 Pregnanc y test negative 937226166 Completed 201911/28/2020 Encounte r for pregnanc y test, result negative ;Recorde d Elsewher e: No Locat ion: [facility] S ource: EHR Pocket Marker дмитрий: N Richardti ce ID: [id number] Charles lable Time: 01:00:00 PM [facility] 15:24:53 Pelvic and perineal pain 267883238 Completed 201911/28/2020 Pelvic pain;Rec orded Elsewher e: No Locat ion: [facility] S ource: EHR Pocket Marker дмитрий: N Practi ce ID: 0001 Charles lable Time: 01:00:00 PM [facility] 15:24:55 Pain in pelvis 05066621 Completed 201903/15/2020 [facility] 15:24:58 Cyst of ovary 22475631 Active 2019 Arthur Real MD [address], [place], [address], [facility] 0 14:28:43 Pain in pelvis 49562498 Completed 201911/28/2020 Belia Braxton justino, [facility] 1 15:24:58 Endometr iosis (clinica l) 152041733 Active 2019 Arthur Real MD [address], [place], [address], [facility] 0 14:30:37 Problem Notes None recorded. Procedures Surgical History Date Name Laterality Status Provider Name and Address Organization Details Recorded Time 03/15/20 20 Date of Last [facility] 11/17/2020 10:16:27 09/19/19 18 [facility] 11/17/2020 11:01:55 06/06/20 17 Laparoscopy completed [facility] 11/17/2020 11:04:17 11/24/19 17 Laparoscopy completed [facility] 11/17/2020 11:05:40 11/24/19 17 Colposcopy completed Thalia Jewell [facility] 11/17/2020 11:39:24 10/07/19 16 [facility] 11/17/2020 11:04:49 10/07/19 16 Colposcopy completed Thalia Jewell [facility] 11/17/2020 11:39:38 06/25/20 14 [facility] 11/17/2020 11:39:33 10/19/19 12 [facility] 11/17/2020 11:06:45 Imaging Results None recorded. Procedure Notes None recorded. Medical Equipment None Reported. Allergies Allergen ID Allergen Name Allergen Category Reaction Reaction Severity Criticality Documentation Date Start Date Code Code System Note Provider Name and Address Organization Details Recorded Time 1241 azithromy taylor medicatio n Not available Not available Not available 03/15/2020 04962 RxNorm Belia Braxton [facility] 0 13:59:51 Medications Name Sig Start [...] ed Sameera e: Yes Loca tion: [facility] M odify By: [email or web address] Encounte r DateTime [...] Updated DateTime 11/11/2020 160.02 cm 38.3 kg/m2 89026.95 g 121/82 mm[Hg] Thalia Jewell [facility] 11/11/2020 15:50:17 Date Recorded Body height Body mass index (BMI) Body weight Systolic And Diastolic Provider Name and Address Organization Details Last Updated DateTime 11/28/2020 160.02 cm 39 kg/m2 49345.32 g 112/72 mm[Hg] Belia [facility] 11/28/2020 15:24:47 Date Recorded Body height Provider Name an d Address Organization Details Last Updated DateTime 01/05/2021 160.02 cm Mey Valente [facility] 01/04/2021 15:56:49 Date Recorded Body height Body mass index (BMI) Body weight Systolic And Diastolic Provider Name and Address Organization Details Last Updated DateTime 03/15/2020 160.02 cm 34 kg/m2 95129.74 g 124/77 mm[Hg] Belia [facility] 03/15/2020 13:59:42 Social History Question Answer Notes LastModified by Organizat ion Details LastModified Time Tobacco Smoking Status Former Smoker Thalia badillo, [facility] 11/11/2020 15:50:53 Do You Have An Advance Directive? No [email or web address] Information n ot available 11/11/2020 Are You Blind Or Do You Have Difficulty Seeing? No [email or web address] Information n ot available 11/11/2020 In The 14 Days Before Symptom Onset, Have You Had Close Contact With A Laboratory-confirm ed COVID-19 While That Case Was Ill? No [email or web address] Information n ot available 11/11/2020 In The 14 Days Before Symptom Onset, Have You Had Close Contact With A Person Who Is Under Investigation For COVID-19 While That Person Was Ill? No [email or web address] Information not available 11/11/2020 Have You Been To An Area Known To Be High Risk For COVID-19? No [email or web address] Information not available 11/11/2020 Are You Deaf Or Do You Have Serious Difficulty Hearing? No [email or web address] Information not available 11/11/2020 What Type Of Diet Are You Following? REGULAR [email or web address] Information n ot available 11/11/2020 What Is The Highest Grade Or Level Of School You Have Completed Or The Highest Degree You Have Received? [id number] [email or web address] Information not available 11/11/2020 Are There Any Guns Present In Your Home? Yes [email or web address] Information not available 11/11/2020 Do You Use Protection During Sex? No [email or web address] Information not available 11/11/2020 Do You Use Your Seat Belt Or Car Seat Routinely? Yes [email or web address] Information not available 11/11/2020 Do You Have Smoke And Carbon Monoxide Detectors In Your Home? Yes [email or web address] Information not available 11/11/2020 How Much Tobacco Do You Smoke? No [email or web address] Information not available 11/11/2020 Do You Use Sunscreen Routinely? Yes Information not available 11/11/2020 Have You Used IV Drugs? No [email or web address] Information not available 11/11/2020 Sex: Unknown Functional Status Question Answer Note LastModified by Organizat ion Details LastModified Time Do you use any illicit or recreational drugs? No [email or web address] Information not available 11/11/2020 What is your level of alcohol consumption? Occasional [email or web address] Information not available 11/11/2020 Are you able to walk independently without assistance or assistive devices? 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 Moderate Information not available 11/11/2020 Mental Status Question Answer Note LastModified by Organization D etails LastModified Time Do you feel stressed (tense, restless, nervous, or anxious, or unable to sleep at night)? [id number] [email or web address] Information not available 11/11/2020 Family History Relationship Description Onset Age of this Age Resolved Age Notes LastModified by Organization Details LastModified Time Mother Asthma [email or web address] Not available 03/15/2020 14:00:43 Mother Seizure disorder [...] Diagnosis SNOMED-CT Code Diagnosis ICD10 Code Diagnosis IMO Codes Diagnosis Note [id number] Arthur Real MD [place] [address] [address] 03/15/2020 13:53:37 03/15/2020 15:30:15 Gynecologic examination [id number] Z01.419 This patient is here for her [...] BV - to treat for 6 months [id number] Rapp CNM [place] [address] [address] 11/11/2020 15:21:53 11/11/2020 16:30:49 Vaginitis 54012523 N76.0 await culture Endometrio sis of pelvis 00356366 N80.[address] real [id number] Arthur Real MD [place] [address] [address] 11/28/2020 15:11:27 11/28/2020 16:26:12 Pain in pelvis 36018878 R10.2 Endometrio sis of pelvis 37265397 N80.3 this patient is a 30-year-ol d female presents for severe pelvic pain she has has tamelai ng diagnosis of endometrio sis. She has [...] y. She is unable to use hormon a l contracept ion is treatment. She is known to have endometrio sis. She has biopsy-pro kaya endometrio sis. Additional precaution jossy measures were taken to minimize potential exposure to the Covid-19 virus during this patient s visit, including available hand bullard machine operator upon arrive, temperatur e check and being asked a series of screening questions. All staff wore face coverings during this encounter, as well as provided additional cleaning and sanitizing of all surfaces, including countertop s, pens, chairs, door handles, light switches, etc, prior to and following the patient s visit. Health Concerns Section Related Observation LastModified by Organization [employer] LastModified Time None Recorded Concern Status LastModified by Organization Details LastModified Time None Recorded Advance Directives Directive N: Payers Insurance Date Sequence Insurance Name Policy Number Policy Perez Covered Member ID Perez Member ID Guarantor Name 11/11/2020 1 PE[employer] [facility] PRIOR TO 03/09/2021 (MEDICAID REPLACEMENT - HMO) Eveline Peralta [id number] Eveline Ramirez 01/02/[address] [facility] [id number] Eveline Ramirez [id number] Eveline Sotomando Notes Date Note Type Note Provider Name and Address Organization Details Recorded Time 0 text/html Annual GYNReported by PatientHistoryFor history, (chronic pelvic pain).Genitourinary symptomsFor menstrual cycle, patient reportssevere dysmenorrhea(regular). For urinary symptoms, patient reportsno hematuriaandno incontinence. For vulva, patient reportsno genital lesion. For vagina, patient reportsnormal vaginal discharge.Breast symptomsFor breast, patient reportsno breast pain,no breast lump, andno nipple discharge.Endocrine symptomsFor sexual complaints, patient reportsno sexual complaints,no pain during intercourse, andnormal libido. For menopausal symptoms, patient reportsno menopausal symptomsandnormal vaginal lubrication.Psychologi ga symptomsFor psychological symptoms, patient reportsanxietybut reportsno depression(chronic anxiety).Preventative measuresFor preventive measures, patient reportsencourage self breast examination,encourage regular exercise, andfollowed with yearly pap smears. Arthur Real MD [address], [place], [address], [facility] 03/15/2020 14:44:19 1 text/html Vaginal/Vulvar ProblemReported by Patienthx bv has metrogel at home, can usally tell by smell but since she had covid she cant smell, would like a test, also thinks endometriosis is back again and would like to talk to dr Ruby as noted in the HPI Ginny Rapp CNM [address], [place], [address], [facility] 11/11/2020 16:02:50 1 text/html this patient is a 30-year-old female [...] She has biopsy-proven endometriosis. Arthur Real MD [address], [place], [address], [facility] 11/28/2020 16:25:19 OBGyn Episode Ob Episode Information Episode Created Date Number of Fetuses Patient Bloodtype Patient rh Status Prepregnancy Weight lbs Domestic Partner Domestic Partner Phone Father Name Stock Worker Status 11/18/19 21 1 CLOSED Fetus Data [...] Post Complications Tubal Sterilization Discharge Date Comments 9 Discharge Information Feeding Method Contraceptive Method Maternal HG B and HCT Levels Ob Episode Information Episode Created Date Number of Fetuses Patient Bloodtype Patient rh Status Prepregnancy Weight lbs Domestic Partner Domestic Partner Phone Father Name Stock Worker Status 11/18/19 21 1 CLOSED Fetus Data [...] Post Complications Tubal Sterilization Discharge Date Comments 7 Discharge Information Feeding Method Contraceptive Method Maternal HG B and HCT Levels
--- OUTSIDE RECORDS SUMMARY | 2025-07-23 08:21 | XMS_ITS | Patient Health Record ---
Author Organization [facility] [employer] Address [address] [facility] [address] [place] [address] Care Team Providers Care Manager Coding Name Role Phone GETACHEW PEGUERO Primary Care Provider Shaista Callejas Unavailable [phone] Allergies Allergen (clinical drug ingredient) Drug/Non Drug Allergy documented on EMR Reaction Allergy Type Onset Date Status azithromycin Azithromycin Unknown Drug Allergy A ctive Results Component Value Reference Range Notes UDT Reviewed date:08/26/2024 09:57:53 AM Interpretation: Performing Lab: Notes/Report: Amphetamine (AMP) N 0 - 1000 ng/ml Buprenorphine (BUP) N 0 - 10 ng/ml Oxazepam (BZO) N 0 - 300 ng/ml Cocaine (KRUNAL) N 0 - 300 ng/ml Methamphetamine (mAMP) N 0 - 300 ng/ml Methylenedioxymethamphetamine (MDMA) N 0 - 500 ng/ml Morphine (MOP) N 0 - 25 ng/ml Methadone (MTD) N 0 - 300 ng/ml Oxycodone (OXY) N 0 - 300 ng/ml THC N 0 - 50 ng/ml x N 0 - 1000 ng/ml x N 0 - 1000 ng/ml x N 0 - 300 ng/ml x N 0 - 300 ng/ml x N [...] decision-maker Yes Do you have Power of [employer] or [facility]? No Social History Social Info Question Answer [...] Status Risk Notes Problem Generalized anxiety disorder (82293728) MAXINE (generalized anxiety disorder) (F41.1) Active confirmed Problem Attention deficit hyperactivity disorder (723972383) Attention deficit hyperactivity disorder (ADHD), combined type [...] N/A Encounters Encounter Location Date Provider Diagnosis [facility] [address] [facility] [address] [address] 08/26/2024 Shaista Emery MAXINE (generalized anxiety disorder) F41.1 ; Attention deficit hyperactivity disorder (ADHD), combined type F90.2 and Binge eating disorder, unspecified severity F50.819 [facility] [address] [facility] [address] [facility] [address] [place] [address] 08/28/2024 Shaista Kurilla MAXINE (generalized anxiety disorder) F41.1 ; Attention deficit hyperactivity disorder (ADHD), combined type F90.2 and Binge eating disorder, unspecified severity F50.819 [facility] [address] [facility] [address] [place] [address] 09/22/2024 Shaista Kurilla MAXINE (generalized anxiety disorder) F41.1 ; Attention [...] disorder (ADHD), combined type (ICD-10 - F90.2) 09/22/2024 MAXINE (generalized anxiety disorder) (ICD-10 - F41.1) SSRI/SNRI side effects discussed including but not limited to, gastric upset, nausea, vomiting, diarrhea and/or constipation, weight changes, sexual side effects including loss of libido, increased suicidal thoughts/behaviors in children and young adults, and serotonin syndrome. 08/28/2024 MAXINE (generalized anxiety disorder) (ICD-10 - F41.1) SSRI/SNRI side effects discussed including but not limited to, gastric upset, nausea, vomiting, diarrhea and/or constipation, weight changes, sexual side effects including loss of libido, increased suicidal thoughts/behaviors in children and young adults, and serotonin syndrome. 08/28/2024 Attention deficit hyperactivity disorder (ADHD), combined type (ICD-10 - F90.2) 09/22/2024 Attention deficit hyperactivity disorder (ADHD), combined [...] of psychotropic medications. -Crisis prevention hotline 988. Plan Of Treatment Pending Test Test Name Order Date ADHD Testing 08/26/2024 Insurance Providers Payer Name Payer Address Payer Phone Subscriber Number Group Number Insured Name Patient Relationship to Insured Coverage Start Date Coverage End Date [employer] [place] [address] [id number] Eveline Guillen Self - patient is the [...]
[2025-07-23 08:24] VITALS: BP 118/75; PULSE 73; RESP 20; TEMP 36.8; O2SAT 100
--- NOTE | 2025-07-23 08:40 | ED_ITS ---
HPI - Female Genitourinary General Chief complaint: Urogenital-Female Stated complaint: Urinary Problem Time Seen by Provider: 07/23/25 08:38 Source: patient, RN notes reviewed and old records reviewed Mode of arrival: ambulatory Limitations: no limitations History of Present Illness HPI Narrative: 34-year-old female presents to [facility] with complaints of urinary symptoms which includes lower back pain, urgency, frequency and burning at the end of her urine strain which started last night.. Patient reports she had a urinary tract infection 2 months ago and was treated with Augmentin which did resolve her symptoms. Patient denies any CVA tenderness denies any vaginal discharge or any concerns for STD exposure. Patient reports she has been drinking lots of water, denies any known fevers, chills, or sweats. Patient reports no nausea, vomiting or any recent diarrhea MD elicited complaint: dysuria and UTI Pertinent past history: other (past UTI) Onset (ago): day(s) (started last night) Severity: moderate Vaginal discharge: none Vaginal bleeding: none Urinary symptoms: Dysuria, Urgency and Frequency Related Data Allergies Allergy/AdvReac Type Severity Reaction Status Date / Time azithromycin Allergy Unknown Hives Verified 07/23/25 08:28 erythromycin base Allergy Unknown Hives Verified 07/23/25 08:28 SURGICAL GLUE Allergy Other Uncoded 05/27/25 11:34 Review of Systems Review of Systems: CONSTITUTIONAL: Denies fever, chills, or sweats. CARDIOVASCULAR: Denies chest pain, palpitations, or edema. RESPIRATORY: Denies cough or dyspnea. GASTROINTESTINAL: Denies abdominal pain, nausea, vomiting, or diarrhea. GENITOURINARY: Reports dysuria, frequency, urgency. Denies flank pain or hematuria. SKIN: Denies rash or itching. MUSCULOSKELETAL: reports low back pain or myalgia. 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 Hydronephrosis Anxiety Anemia Surgical History Surgical History History of ankle surgery Hx of tubal ligation Hx of section Hx of ovarian cystectomy H/O laparoscopy [place] teeth removed Hx of tonsillectomy H/O dilation and curettage Family History Family History Father Family history of elevated blood lipids Hypertension Diabetes mellitus Mother Hypertension Osteoporosis Sibling Patient's brother is in good health Social History Social History Social History: Caffeine- Daily Smoking status: Former smoker Tobacco type: cigarettes Second hand tobacco smoke exposure: Yes Smoking end date: 09/09/12 Additional smoking assessment comments: ONLY SMOKED A COUPLE MONTHS Alcohol intake: current Alcohol use details: RARE Substance use: current Substance use type: marijuana Other substance usage details: rare Lack of Transportation: No Lack of Food: Never True Current Housing: I Have Housing Concerned About Future Housing: No Difficulty Paying Gas/Electric Bills: No Difficulty Paying for Meds: No Currently Unemployed: No Education: High School Diploma/GED Difficulty w/ Childcare or Family Care: No Living arrangements: with family Spiritual care concerns: No Comments At time of signature, agree with nursing past medical, surgical, social and family history. There is no relevant family history pertinent to the presenting complaint Exam Narrative: GENERAL: Well-appearing, well-nourished, and in no acute distress. HEAD: Normocephalic, atraumatic. NECK: Supple.no lymphadenopathy CHEST: Clear to auscultation. No respiratory distress.SAO2 100% on room air HEART: Regular rate and rhythm. No murmur heard. Normal peripheral pulses. ABDOMEN: Soft, nontender, nondistended, normal active bowel sounds. No CVA tenderness, urgency, frequency of urination, and burning at end of urine stream with low back pain. EXTREMITIES: Normal range of motion. No edema. SKIN: Warm, dry, no rash. NEURO: No focal deficits. Alert and oriented x3. Course Course Emergency Course: Patient is aware of diagnosis, understands and agrees to treatment plan.? Anticipatory guidance given.? Patient agrees to follow-up as directed and is aware of reasons to seek care at the emergency department. Portions of this record may have been created with voice recognition software Level of Care: Express Care Visit Vital Signs Vital signs: Vital Signs Temperature 36.8 C 07/23/25 08:24 Pulse Rate 73 07/23/25 08:24 Respiratory Rate 20 07/23/25 08:24 Blood Pressure 118/75 07/23/25 08:24 Pulse Oximetry 100 07/23/25 08:24 Oxygen Delivery Room Air 07/23/25 08:24 Temperature 36.8 C 07/23/25 08:24 Pulse Rate 73 07/23/25 08:24 Respiratory Rate 20 07/23/25 08:24 Blood Pressure 118/75 07/23/25 08:24 Pulse Oximetry 100 07/23/25 08:24 Oxygen Delivery Room Air 07/23/25 08:24 reviewed MDM - Female Genitourinary MDM Narrative Medical decision making narrative: Exam findings and UA show no acute concerns or changes; patient is non-toxic appearing and is in no distress.? Patient is appropriate for outpatient treatment and follow-up. Differential Diagnosis Differential diagnosis: Likely urinary tract infection, cystitis and other (dys uria) Medical Records Attestation: I reviewed the patient's medical records. Lab Data Attestation: I reviewed the patient's lab results. Lab results narrative: urine dip: glucose negative, bilirubin negative, ketone negative, specific gravity 1.010, blood 1+, pH 7.0, protein negative, urobilinogen 0.2, nitrite negative, leukocyte 2+ urine yellow and cloudy Labs: Lab Results 07/23/25 Range/Units 08:46 POC Urine Color Yellow POC Urine Clarity Cloudy POC Urine pH 7.0 POC Ur Specif [place] 1.010 POC Urine Protein Negative (Negative) POC Ur Glucose (UA) Negative (Negative) POC Urine Ketones Negative (Negative) POC Urine Blood 1+ (Negative) POC Urine Nitrite Negative (Negative) POC Urine Bilirubin Negative (Negative) POC Urine Urobilinogen 0.2 POC U Leukocyte Esteras 2+ (Negative) reviewed Critical Care Time Critical Care Time Critical Care Time: No Discharge Plan Discharge Clinical Impression: Urinary tract infection Qualifiers: Urinary tract infection type: site unspecified Hematuria presence: with hematuria Qualified Code(s): N39.0 - Urinary tract infection, site not specified Patient Disposition: Home Condition: Stable Instructions: Antibiotic Form, Urinary Tract Infection in Women (ED) Additional Instructions: Increase fluids especially cranberry juice and water Avoid caffeine and carbonated beverages Antibiotic as directed Tylenol/ibuprofen for pain or fever Follow-up with her primary care provider if further problems or concerns Recheck if you have fever over 101, nausea and vomiting. avoid holding urine, lean forward at the end of streasm of urine, avoid baths and any scented vaginal product If your symptoms persist, change or worsen significantly before you can contact your personal physician then please, without delay, go to the emergency department for further evaluation. Follow-up with PCP in 7-10 days or sooner if needed Patient Language: Lebanese Prescriptions: New amoxicillin-pot clavulanate 875-125 mg tablet 1 tablet PO Q12H Qty: 20 0RF Rx Instructions: take with food and take probiotic while taking this medication fluconazole 200 mg tablet 200 mg PO DAILY Qty: 2 0RF Rx Instructions: take one tablet at onset of symptoms and may repeat in 72 hours X1 if needed Follow-up/Referrals: Michael Yuan DO [Primary Care Provider, Internal Medicine] Time of Disposition: 08:55 Quality [place] Coma Scale Eyes: Open Verbal: Oriented and Alert Motor: Follows Commands [place] Coma Total Score: 15
[2025-07-23 08:50] LABS: EDUAAPPEAR Cloudy; EDUABILI Negative (Negative); EDUABLOOD 1+ (Negative); EDUACOLOR1 Yellow; EDUAGLUCOSE Negative (Negative); EDUAKETONE Negative (Negative); EDUALEUKO 2+ (Negative); EDUANITRATE Negative (Negative); EDUAPH 7.0; EDUAPROTEIN Negative (Negative); EDUASPGRAVITY 1.010; EDUAUROBILI 0.2
== END 2025-07-23 09:00 | disposition home or self-care (01) ==
PROVIDERS: Emergency Provider Registered Nurse; PCP Internal Medicine
DX: N39.0 Urinary tract infection, site not specified (principal); Z87.891 Personal history of nicotine dependence
CPT/HCPCS: 81003; 87077; 87086; 87186; 99213; G0463